=== PATIENT | female | born 1950 | race Caucasian/White ===

== ENCOUNTER 2017-08-16 07:08 | Inpatient (IN) | payer MEDICARE ==
[2017-08-16] MEDS ORDERED: Bisacodyl SUPP* 10 MG SUPP PR PRN (13:49)
[2017-08-16] MEDS ORDERED: Acetaminophen TAB* 325 MG PO PRN (13:49)
[2017-08-16] MEDS ORDERED: Magnesium Hydroxide LIQ* 30 ML UDC PO PRN (13:49)
[2017-08-16] MEDS ORDERED: Senna TAB PO PRN (13:49)
[2017-08-16] MEDS ORDERED: Prochlorperazine TAB* 10 MG PO PRN (14:25)
[2017-08-16] MEDS: fentaNYL PATCH 50 MCG/HR TRANSDERM SCH (14:36)
[2017-08-16] MEDS: Magic Mouth Was-BEN/MAAL/LIDO SWISH SPIT SCH ×2 (16:15→20:24)
[2017-08-16] MEDS: HYDROcodone/ACETAMIN 5-325 MG* 1 TAB PO PRN ×2 (16:24→20:27)
[2017-08-16] MEDS: ALPRAZolam TAB* 0.25 MG PO PRN (16:24)
[2017-08-16] MEDS: fentaNYL Patch Check Q Shift 1 NOTE SCH (19:35)
[2017-08-16] MEDS: Atorvastatin* 40 MG TAB PO SCH (20:23)
[2017-08-16] MEDS: Docusate CAP* 100 MG PO SCH (20:23)
[2017-08-16] MEDS: Senna TAB PO SCH (20:24)
[2017-08-16] MEDS ORDERED: Cholecalciferol TAB* 1000 UNITS PO ONE (21:14)
--- NOTE | 2017-08-16 21:31 | HP ---
HISTORY AND PHYSICAL: DATE OF ADMISSION: 08/16/17 REASON FOR ADMISSION: Right humerus fracture with bilateral lower extremity weakness, left greater than right. HISTORY OF PRESENT ILLNESS: Wendy Varela is a 67-year-old female. She has metastatic lung cancer, which was originally diagnosed in 2014. She had metastases in her lumbar spine and underwent radiation for that. The patient had been developing lower extremity weakness worse in the left leg than the right. She had come back to [place] where her oncology team was to have imaging studies done of her lower extremities and her spine. On 08/11/17, the patient was in bathroom when her left leg gave out. She held on to the sink with her left hand but fell on to her right hand. She had immediate pain in her right arm. She called her sister. She was brought to [facility]. She was found to have a fracture of the right humerus. She was put into a coaptation splint. She was discharged home with her sister that day. Her sister felt that she could care for her, but then her sister was unable to get her off the couch. The patient came back to the ER on 08/12/17 with significant pain of her right arm. She was seen by Dr. Woo . She was put into a Arango brace. The patient had difficulty mobilizing because she was not able to use a walker with her right hand as she is nonweightbearing on that right arm. She has lower extremity weakness as a result of radiation to her lumbar spine. She was felt to have physical therapy and occupational therapy needs. She is now being admitted for inpatient rehab so that she might return to independent living. PAST MEDICAL HISTORY: Significant for the aforementioned stage IV lung cancer. As mentioned, Dr. Vo is her oncologist. She is receiving chemotherapy for this. She had left wrist surgery in 2010. She has hypothyroidism, hyperlipidemia, and depression. CURRENT MEDICATIONS: Include: 1. Fentanyl patch. 2. She is also on hydrocodone. 3. She takes Prozac. 4. Wellbutrin. 5. Lipitor. 6. Xanax. 7. Synthroid. 8. Compazine. 9. Zofran. ALLERGIES: Include PENICILLIN and OXACILLIN. SOCIAL HISTORY: She is a nonsmoker, nondrinker. She lives with her in a 2- story house. Normally, they spend half the time in [place] and half the time in the [facility]. Her just had a right carotid endarterectomy done. REVIEW OF SYSTEMS: The patient reports her last bowel movement this morning. There is no current shortness of breath or chest pain. PHYSICAL EXAMINATION VITAL SIGNS: The patient's temperature is 99.3, blood pressure is 119/70, pulse is 99, respirations 16. HEENT: She has alopecia as a result of her therapy. Her extraocular movements were intact. NECK: Supple. LUNGS: Sounded clear to auscultation bilaterally. HEART: Sounds are regular. S1 and S2 are audible. ABDOMEN: Soft and nontender. EXTREMITIES: Her right arm is in a Arango brace. Peripheral pulses are intact. She is able to wiggle all fingers. She had trace edema in her lower extremities. NEUROLOGIC: She had diminished sensation peripherally. She was able to move her left upper extremity with 5/5 strength. Her lower extremities had at least 4+/5 strength bilaterally. ASSESSMENT: Right humerus fracture in a patient with stage IV lung cancer with no metastasis to her lumbar spine. She has undergone radiation to her lumbar spine and now has mild lower extremity weakness. PLAN: Our plan is to integrate her into a comprehensive and therapeutic rehab program on the following goals: 1. Physical Therapy will work with the patient. They are going to work on functional transfer training, ambulation training with a walker. 2. Occupational Therapy will see the patient, work on her activities of daily living including toileting and toilet transfers. 3. Lovenox for DVT prophylaxis. 4. Adequate analgesia. 5. We are going to continue her Wellbutrin and Prozac for depression as well as her Xanax for anxiety. 6. She has had mouth sores from her most recent chemo. We will start Magic Mouthwash. 7. Continue Synthroid for hypothyroidism. 8. Compazine and Zofran for nausea. 9. Her bowels will be regulated. 10. Electric Distribution Engineer will be closely involved to make sure that any services and equipment the patient requires are in place prior to the discharge. 11. Home with appropriate services. ESTIMATED LENGTH OF STAY: 10 to 14 days. [id number]/[facility] #: [id number] [facility]
[2017-08-17] MEDS: fentaNYL Patch Check Q Shift 1 NOTE SCH ×2 (05:29→19:44)
[2017-08-17 05:31] LABS: Hematocrit 31 % (35-47); Hemoglobin 10.7 g/dl (12.0-16.0); Mean Corpuscular HGB Conc 34 g/dl (31-36); Mean Corpuscular Hemoglobin 30 pg (27-31); Mean Corpuscular Volume 87 fL (80-97); Mean Platelet Volume 7.4 um3 (7.4-10.4); Platelet Count 259 10^3/ul (150-450); Red Blood Count 3.61 10^6/ul (4.0-5.4); Red Cell Distribution Width 19 % (10.5-15); White Blood Count 1.1 10^3/ul (3.5-10.8)
[2017-08-17] MEDS: Levothyroxine TAB* 75 MCG TAB PO SCH (05:34)
[2017-08-17] MEDS: Cetirizine* 10 MG TAB PO SCH (08:25)
[2017-08-17] MEDS: FLUoxetine CAP* 20 MG PO SCH (08:25)
[2017-08-17] MEDS: BuPROPion XL* 150 MG TAB.XL PO SCH (08:25)
[2017-08-17] MEDS: Docusate CAP* 100 MG PO SCH ×2 (08:26→20:57)
[2017-08-17] MEDS: Enoxaparin(*) 40 MG/0.4 ML SYR SUBCUT SCH (08:27)
[2017-08-17] MEDS: ALPRAZolam TAB* 0.25 MG PO PRN ×2 (08:48→20:56)
[2017-08-17] MEDS: HYDROcodone/ACETAMIN 5-325 MG* 1 TAB PO PRN ×3 (08:48→20:56)
[2017-08-17] MEDS: Magic Mouth Was-BEN/MAAL/LIDO SWISH SPIT PRN ×4 (09:58→23:22)
--- NOTE | 2017-08-17 11:53 | PN ---
Progress Note Date of Service: 08/17/17 Note: TAWANNA EDMONDSON was visited. Therapy notes read and reviewed. She has some ecchymoses in the right arm which is to be expected. A bit of pain last night Current Medications: Active Medications Generic Name Dose Route Start Last Admin Trade Name Freq PRN Reason Stop Dose Admin Acetaminophen 650 mg 08/16/17 13:49 Tylenol Tab* PO Q6H PRN FEVER/PAIN Hydrocodone Bitart/Acetaminophen 2 tab 08/16/17 14:09 [place] 5-325 Tab* PO Q4H PRN PAIN - SEVERE Hydrocodone Bitart/Acetaminophen 1 tab 08/16/17 14:25 08/17/17 08:48 [place] 5-325 Tab* PO 1 tab Q4H PRN Administration PAIN - MODERATE TO SEVERE Alprazolam 0.25 mg 08/16/17 14:09 08/17/17 08:48 Xanax Tab* PO 0.25 mg Q8H PRN Administration ANXIETY Atorvastatin Calcium 40 mg 08/16/17 21:00 08/16/17 20:23 Lipitor* PO 40 mg 2100 BEULAH Administration Bisacodyl 10 mg 08/16/17 13:49 Dulcolax Supp* [place] DAILY PRN CONSTIPATION Bupropion HCl 150 mg 08/17/17 09:00 08/17/17 08:25 Wellbutrin Xl * PO 150 mg DAILY BEULAH Administration Protocol Cetirizine HCl 10 mg 08/17/17 09:00 08/17/17 08:25 Zyrtec* PO 10 mg DAILY BEULAH Administration Cholecalciferol 4,000 units 08/17/17 21:00 Vitamin D Tab* PO 2100 BEULAH Docusate Sodium 100 mg 08/16/17 21:00 08/17/17 08:26 Colace Cap* PO Not Given BID BEULAH Enoxaparin Sodium 40 mg 08/17/17 09:00 08/17/17 08:27 Lovenox(*) SUBCUT 40 mg Q24H BEULAH Administration Fentanyl 50 mcg 08/16/17 14:00 08/16/17 14:36 Duragesic Patch 50 Mcg/Hr* TRANSDERM 50 mcg Q72H BEULAH Administration Fluoxetine HCl 40 mg 08/17/17 09:00 08/17/17 08:25 Prozac Cap* PO 40 mg DAILY BEULAH Administration Levothyroxine Sodium 100 mcg 08/19/17 06:00 Synthroid Tab* PO MoWeFr@0600 [facility] Levothyroxine Sodium 75 mcg 08/17/17 06:00 08/17/17 05:34 Synthroid Tab* PO 75 mcg SuTuThSa@0600 [facility] Administration Magnesium Hydroxide 30 ml 08/16/17 13:49 Milk Of Magnesia Liq* PO Q6H PRN CONSTIPATION Multi-Ingredient Mouthwash/Gargle 5 ml 08/16/17 20:47 08/17/17 09:58 Magic Mouth Was-Amadou/Maal/Lido* SWISH SPIT 5 ml Q4H PRN Administration Mouth Soreness Ondansetron HCl 4 mg 08/16/17 14:05 Zofran Odt Tab* PO Q6H PRN NAUSEA Pharmacy Profile Note 1 note 08/16/17 19:00 08/17/17 05:29 Fentanyl Patch Check Q Shift N/A 1 note 0700,1900 [facility] Administration Prochlorperazine 10 mg 08/16/17 14:25 Compazine Tab* PO Q8HR PRN NAUSEA Senna 2 tab 08/16/17 21:00 08/16/17 20:24 Senokot Tab* PO Not Given BEDTIME [facility] Vital Signs: Vital Signs Temp Pulse Resp BP Pulse Ox 98.9 F 73 18 102/58 91 08/17/17 05:32 08/17/17 05:32 08/17/17 08:48 08/17/17 05:48 08/17/17 08:00 Lab Results: Laboratory Results - last 24 hr 08/17/17 05:18 WBC 1.1 L RBC 3.61 L Hgb 10.7 L Hct 31 L MCV 87 MCH 30 MCHC 34 RDW 19 H Plt Count 259 MPV 7.4 Exam: LUNGS: Clear HEART: S1, S2 ABDOMEN: Soft EXTREMITIES: Right arm in splint. Eccymotic areas on arm. Pulses intact Assessment/Plan: 1. Right Humerus Fracture: Brace AAT. NWB RUE. PT/OT 2. 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 PT/OT 3. Stage IV Lung Cancer: Onc Follow up regarding chemo 4. Anxiety: Xanax 5. Depression: Wellbutrin/Prozac 6. Analgesia: Duragesic/[place] 7. DVT Prophylaxis: Lovenox 8. Mucositis: Magic Mouthwash 9. Hypothroidism: Synthroid 08/17/17 11:55
[2017-08-17] MEDS ORDERED: Levothyroxine TAB* 75 MCG TAB PO SCH (14:02)
[2017-08-17] MEDS: Atorvastatin* 40 MG TAB PO SCH (20:56)
[2017-08-17] MEDS: Cholecalciferol TAB* 1000 UNITS PO SCH (20:56)
[2017-08-17] MEDS: Senna TAB PO SCH (20:57)
[2017-08-18] MEDS: Levothyroxine TAB* 75 MCG TAB PO SCH (05:25)
[2017-08-18] MEDS: fentaNYL Patch Check Q Shift 1 NOTE SCH ×3 (07:28→23:00)
[2017-08-18] MEDS: FLUoxetine CAP* 20 MG PO SCH (09:10)
[2017-08-18] MEDS: Cetirizine* 10 MG TAB PO SCH (09:10)
[2017-08-18] MEDS: BuPROPion XL* 150 MG TAB.XL PO SCH (09:10)
[2017-08-18] MEDS: Docusate CAP* 100 MG PO SCH ×2 (09:10→20:51)
[2017-08-18] MEDS: ALPRAZolam TAB* 0.25 MG PO PRN ×2 (09:12→20:52)
[2017-08-18] MEDS: HYDROcodone/ACETAMIN 5-325 MG* 1 TAB PO PRN ×3 (09:13→20:52)
[2017-08-18] MEDS: Enoxaparin(*) 40 MG/0.4 ML SYR SUBCUT SCH (09:13)
[2017-08-18] MEDS: Magic Mouth Was-BEN/MAAL/LIDO SWISH SPIT PRN ×2 (12:00→21:01)
--- NOTE | 2017-08-18 12:39 | PN ---
Progress Note Date of Service: 08/18/17 Note: TAWANNA EDMONDSON was visited. Nursing notes read and reviewed. Some swelling in hand likely from blood traveling down arm, dependency. May try Isotoner glove Current Medications: Active Medications Generic Name Dose Route Start Last Admin Trade Name Freq PRN Reason Stop Dose Admin Acetaminophen 650 mg 08/16/17 13:49 Tylenol Tab* PO Q6H PRN FEVER/PAIN Hydrocodone Bitart/Acetaminophen 2 tab 08/16/17 14:09 [place] 5-325 Tab* PO Q4H PRN PAIN - SEVERE Hydrocodone Bitart/Acetaminophen 1 tab 08/16/17 14:25 08/18/17 09:13 [place] 5-325 Tab* PO 1 tab Q4H PRN Administration PAIN - MODERATE TO SEVERE Alprazolam 0.25 mg 08/16/17 14:09 08/18/17 09:12 Xanax Tab* PO 0.25 mg Q8H PRN Administration ANXIETY Atorvastatin Calcium 40 mg 08/16/17 21:00 08/17/17 20:56 Lipitor* PO 40 mg 2100 BEULAH Administration Bisacodyl 10 mg 08/16/17 13:49 Dulcolax Supp* [place] DAILY PRN CONSTIPATION Bupropion HCl 150 mg 08/17/17 09:00 08/18/17 09:10 Wellbutrin Xl * PO 150 mg DAILY BEULAH Administration Protocol Cetirizine HCl 10 mg 08/17/17 09:00 08/18/17 09:10 Zyrtec* PO 10 mg DAILY BEULAH Administration Cholecalciferol 4,000 units 08/17/17 21:00 08/17/17 20:56 Vitamin D Tab* PO 4,000 units 2100 BEULAH Administration Docusate Sodium 100 mg 08/16/17 21:00 08/18/17 09:10 Colace Cap* PO 100 mg BID BEULAH Administration Enoxaparin Sodium 40 mg 08/17/17 09:00 08/18/17 09:13 Lovenox(*) SUBCUT 40 mg Q24H BEULAH Administration Fentanyl 50 mcg 08/16/17 14:00 08/16/17 14:36 Duragesic Patch 50 Mcg/Hr* TRANSDERM 50 mcg Q72H BEULAH Administration Fluoxetine HCl 40 mg 08/17/17 09:00 08/18/17 09:10 Prozac Cap* PO 40 mg DAILY BEULAH Administration Levothyroxine Sodium 100 mcg 08/19/17 06:00 Synthroid Tab* PO MoWeFr@0600 BEULAH Levothyroxine Sodium 75 mcg 08/17/17 06:00 08/18/17 05:25 Synthroid Tab* PO 75 mcg SuTuThSa@0600 [facility] Administration Magnesium Hydroxide 30 ml 08/16/17 13:49 Milk Of Magnesia Liq* PO Q6H PRN CONSTIPATION Multi-Ingredient Mouthwash/Gargle 5 ml 08/16/17 20:47 08/18/17 12:00 Magic Mouth Was-Amadou/Maal/Lido* SWISH SPIT 5 ml Q4H PRN Administration Mouth Soreness Ondansetron HCl 4 mg 08/16/17 14:05 Zofran Odt Tab* PO Q6H PRN NAUSEA Pharmacy Profile Note 1 note 08/16/17 19:00 08/18/17 07:28 Fentanyl Patch Check Q Shift N/A 1 note 0700,1900 [facility] Administration Prochlorperazine 10 mg 08/16/17 14:25 Compazine Tab* PO Q8HR PRN NAUSEA Senna 2 tab 08/16/17 21:00 08/17/17 20:57 Senokot Tab* PO Not Given BEDTIME [facility] Vital Signs: Vital Signs Temp Pulse Resp BP Pulse Ox 98.9 F 87 18 97/42 93 08/18/17 05:24 08/18/17 05:24 08/18/17 12:33 08/18/17 05:24 08/18/17 08:00 Exam: LUNGS: Clear HEART: S1, S2 ABDOMEN: Soft EXTREMITIES: Right arm in splint. Eccymotic areas on arm. Right hand swollen. Pulses intact Assessment/Plan: 1. Right Humerus Fracture: Brace AAT. NWB RUE. PT/OT 2. 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 PT/OT 3. Stage IV Lung Cancer: Onc Follow up regarding chemo 4. Anxiety: Xanax 5. Depression: Wellbutrin/Prozac 6. Analgesia: Duragesic/[place] 7. DVT Prophylaxis: Lovenox 8. Mucositis: Magic Mouthwash 9. Hypothroidism: Synthroid 10. Hand swelling: will discuss with OT-Glove? 08/18/17 12:40
[2017-08-18] MEDS: Cholecalciferol TAB* 1000 UNITS PO SCH (20:50)
[2017-08-18] MEDS: Atorvastatin* 40 MG TAB PO SCH (20:52)
[2017-08-18] MEDS: Senna TAB PO SCH (20:52)
[2017-08-19] MEDS: Levothyroxine TAB* 100 MCG TAB PO SCH (05:47)
[2017-08-19] MEDS: HYDROcodone/ACETAMIN 5-325 MG* 1 TAB PO PRN ×4 (05:51→20:31)
[2017-08-19 06:33] LABS: Hematocrit 31 % (35-47); Hemoglobin 10.2 g/dl (12.0-16.0); Mean Corpuscular HGB Conc 33 g/dl (31-36); Mean Corpuscular Hemoglobin 29 pg (27-31); Mean Corpuscular Volume 86 fL (80-97); Mean Platelet Volume 6.9 um3 (7.4-10.4); Platelet Count 269 10^3/ul (150-450); Red Blood Count 3.57 10^6/ul (4.0-5.4); Red Cell Distribution Width 19 % (10.5-15)
[2017-08-19 06:37] LABS: ABS Basophils 0 10^3/ul (0-0.2); ABS Eosinophils 0 10^3/ul (0-0.6); ABS Lymphocytes 0.4 10^3/ul (1.0-4.8); ABS Monocytes 0.7 10^3/ul (0-0.8); ABS Neutrophils 0.8 10^3/ul (1.5-7.7)
[2017-08-19 06:54] LABS: EGFR Non-African American 83.7 (>60)
[2017-08-19 06:58] LABS: ABS Nucleated RBC 0 10^3/ul; Eosinophil % 1.2 % (0-6); Lymphocyte % 22.1 % (25-47); Nucleated Red Blood Cells % 0.3
[2017-08-19] MEDS: fentaNYL Patch Check Q Shift 1 NOTE SCH ×2 (07:10→21:40)
[2017-08-19] MEDS: BuPROPion XL* 150 MG TAB.XL PO SCH (08:20)
[2017-08-19] MEDS: Docusate CAP* 100 MG PO SCH ×2 (08:20→20:32)
[2017-08-19] MEDS: FLUoxetine CAP* 20 MG PO SCH (08:20)
[2017-08-19] MEDS: Enoxaparin(*) 40 MG/0.4 ML SYR SUBCUT SCH (08:20)
[2017-08-19] MEDS: Cetirizine* 10 MG TAB PO SCH (08:21)
[2017-08-19] MEDS: ALPRAZolam TAB* 0.25 MG PO PRN (08:21)
--- NOTE | 2017-08-19 12:40 | PMRUTEAM ---
PMRU: Team Meeting Current Status: Nursing: Current Status Skin Deviations [Right Arm] Bruise Skin Deviations [Left Elbow] Bruise Skin Deviation Description [ in ayala brace at all times Right Arm] Skin Deviation Description [ abrasion healing and open to air Left Elbow] Physical Therapy: Current Status Bed Mobility Assistance Supervision Transfer Moblility Assistance Contact Guard Assist Transfer/Bed Mobility Vivek Walker Recommended Devices Ambulation Assistance Contact Guard Assist Ambulation Assistive Devices Vivek Walker Number of Feet Patient 7' and 10' Ambulated Manual Wheelchair Control/ Bilateral LE's Technique Wheelchair Propulsion Ability Standby Assistance Wheelchair Distance (ft) 40' Objective Comments patient demosntrates good overall abiltiy in completion of mobiltiy with W/C using BLE. patient needs cuing for procedure and occasional assist, and assist with problemsolving mobitliy. Occupational Therapy: Current Status Upper Body Dressing Max Asst Lower Body Dressing Total Assist,2 Person Assist Bathing Total Assist Toileting Total Assist,2 Person Assist Toilet Transfer Min Assist Eating Supervision Rec Therapy: Current Status Summary of Assessment and Pt. was open to conversion - very bright, engaged , Clinical Impression and had a good sense of humor and outlook on life . Pt. states she enjoys her life and engages in leisure regularly. Treatment Goals Pt. will engage in leisure activities while on the unit. Treatment Plan Provide RT services and encourage involvement. Social Work: Current Status Discharge Plan return home with home care svs and family support Potential for Family Training pt's' is involved and supportive Anticipated Discharge Home Destination Discharge With home care svs and family support Goals: Physical Therapy: Initial Goals Bed Mobility Assistance Independent Transfer Mobility Assistance Independent Transfer/Bed Mobility Vivek Walker Recommended Devices Ambulation Contact Guard Assist Ambulation Recommended Devices Vivek Walker Ambulation Distance 50 Wheelchair Propulsion Ability Independent Wheelchair Distance (ft) 150 Physical Therapy: Updated Goals Transfer/Bed Mobility Vivek Walker Recommended Devices Occupational Therapy: Initial Goals Goals to be Completed in (Days 10-14 ) Upper Body Bathing Routine Minimal Contact Assist Lower Body Bathing Routine Supervision/Set Up Upper Body Dressing Routine Minimal Contact Assist Lower Body Dressing Routine Supervision/Set Up Toilet Hygeine and Clothing Modified Independent with Management Routine Toilet Transfer Routine Modified Independent with Step-In Shower Transfer Supervision/Set Up Routine Functional Transfers for ADL Modified Independent with Grooming Routine Modified Independent with Feeding Routine Modified Independent with Social Work: Goals Discharge Plan return home with home care svs and family support Potential for Family Training pt's' is involved and supportive Anticipated Discharge Home Destination Discharge With home care svs and family support Care Plan: Care Plan ADL's - Improve/Maintain Start: 08/17/17 12:39 Freq: DAILY Status: Active Target: Protocol: Activity Type Activity Date Activity User E-Sign Co-Sign Detail Recorded Client Recorded Date Recorded By Document 08/17/17 12:39 [id number] 08/17/17 12:39 [id number] 08/17/17 12:39 PMRU Outcome: ADL's/ADL Transfers Orders/Interventions Occupational Therapy Evaluation & Treatment Communication Tool in Patient Room Device Yes Address Deficits Secondary To: R humerus fx Patient to receive OT 5x/wk for 60-120 Therex min/day Self Care Management Group Therapy UE/LE ADL's with Assist Yes: Malorie ADL Transfers with Assist Yes: Breanna Toileting: Transfers,Clothing Management Yes: Breanna ,Hygeine w/Assist Light Kitchen/Laundry w/Assist No Progression Toward Outcome/Goals Progressing Outcome/Goals Met Pt is a 67 year old female with h/o lung CA with brain/ spine mets s/p fall with distal Right humerus fx and currently NWB RUE with Ayala brace and sling in place. Pt reports increase in pain at times with movement to reposition in chair/stand. Pt currently requires significant assistance 2* WB precautions, splint/sling, as well as limited 2* pain , nausea, and occasional c/o dizziness and anxiety which limit independence with bathing, dressing, toileting, and transfers. Pt will benefit from skilled OT intervention to maximize independence and safety prior to d/c home with support . Coping/Psych-Improve/Maintain Start: 08/16/17 14:21 Freq: DAILY Status: Active Target: Protocol: Activity Type Activity Date Activity User E-Sign Co-Sign Detail Recorded Client Recorded Date Recorded By Document 08/19/17 01:36 [id number] 08/19/17 01:37 [id number] 08/19/17 01:36 PMRU Outcome: Coping/Psychosocial Coping Outcome/Goals Verbalization of Acceptance of Rehab Admit Verbalization of Sense of Control Over Health Status Utilization of Appropriate Problem Solving Techniques Willingness to Participate in Treatment Plan and Basic Needs Utilization of Available Support Systems Absence of Destructive Behavior to Self/Others Psychosocial Outcome/Goals Cooperate/ Participate in Plan Progression Toward Outcome/Goals - Progressing Coping Progression Toward Outcome/Goals - Progressing Psychosocial DVT Prophylaxis- Improve/Maintain Start: 08/16/17 14:21 Freq: DAILY Status: Active Target: Protocol: Activity Type Activity Date Activity User E-Sign Co-Sign Detail Recorded Client Recorded Date Recorded By Document 08/19/17 01:36 [id number] 08/19/17 01:37 [id number] 08/19/17 01:36 PMRU Outcome: DVT Prophylaxis Outcome/Goals Remains Free of DVT Complies with DVT Prophylaxis /Treatment Progression Toward Outcome/Goals Progressing Discharge Planning - Improve/Maintain Start: 08/16/17 14:21 Freq: DAILY Status: Active Target: Protocol: Activity Type Activity Date Activity User E-Sign Co-Sign Detail Recorded Client Recorded Date Recorded By Document 08/18/17 01:23 [id number] 08/18/17 01:24 [id number] 08/18/17 01:23 PMRU Outcome: Discharge Planning Update Patient Family No Outcome/Goals Demonstrates Understanding of Discharge Plan Progression Toward Outcome/Goals Progressing Education-Improve/Maintain Start: 08/16/17 14:21 Freq: DAILY Status: Active Target: Protocol: Activity Type Activity Date Activity User E-Sign Co-Sign Detail Recorded Client Recorded Date Recorded By Document 08/19/17 01:36 [id number] 08/19/17 01:37 [id number] 08/19/17 01:36 PMRU Outcome: Education Outcome/Goals Demonstrates Skills Encourage Questions Progression Toward Outcome/Goals Progressing /GI-Improve/Maintain Start: 08/16/17 14:21 Freq: DAILY Status: Active Target: Protocol: Activity Type Activity Date Activity User E-Sign Co-Sign Detail Recorded Client Recorded Date Recorded By Document 08/19/17 01:36 [id number] 08/19/17 01:37 [id number] 08/19/17 01:36 PMRU Outcome: Genitourinary/ Gastrointestinal Genitourinary- Outcome/Goals Remain Free of Hospital- Acquired UTI Gastrointestinal-Outcome/Goals Maintain/ Achieve Bowel Regularity in Accordance with Pt's Baseline Remain Free of Emesis Prevent Constipation Laxatives as Ordered Progression Toward Outcome/Goals - Progressing Progression Toward Outcome/Goals - GI Progressing Medication Administration Start: 08/16/17 14:21 Freq: DAILY Status: Active Target: Protocol: Activity Type Activity Date Activity User E-Sign Co-Sign Detail Recorded Client Recorded Date Recorded By Document 08/19/17 01:36 [id number] 08/19/17 01:37 [id number] 08/19/17 01:36 PMRU Outcome: Medication Administration Assess Patient Knowledge/Teach Med Yes Education for all Meds Outcome/Goals Patient Independent with Medication Administration at Home Other Outcome/Goals uses pill box at home Progression Towards Outcome/Goals Progressing Outcome/Goals Met Patient Independent with Medication Administration at Home Is Patient Going Home on Lovenox? No Mobility- Improve/Maintain Start: 08/17/17 16:50 Freq: DAILY Status: Active Target: Protocol: Activity Type Activity Date Activity User E-Sign Co-Sign Detail Recorded Client Recorded Date Recorded By Document 08/17/17 16:52 [id number] 08/17/17 16:52 [id number] 08/17/17 16:52 PMRU Outcome: Mobility Physical Therapy Evaluation and Yes Treatment Activity OOB with Assistance Yes NWB Yes: RUE - arm in sling aat Device Yes Assistance Yes Patient to be seen 5x/wk for 60-120 min/ Therex day for: Mobility Training Gait Training W/C Mobility Balance Other Outcome/Goals Maintain/ Achieve Baseline Mobility Status Improve Mobility Status Demonstrates Proper Use of Assistive Devices Free from Complications of Immobility Progression Toward Outcome/Goals Progressing Bed Mobility Yes: independent Transfers Yes: independent with vivek- walker/rail Gait x ft Yes: independent with vivek- walker 50' W/C Mobility x ft Yes: independent with BLE to 150 + feet Pain/Comfort- Improve/Maintain Start: 08/16/17 14:21 Freq: DAILY Status: Active Target: Protocol: Activity Type Activity Date Activity User E-Sign Co-Sign Detail Recorded Client Recorded Date Recorded By Document 08/19/17 01:36 [id number] 08/19/17 01:37 [id number] 08/19/17 01:36 PMRU Outcome: Pain/Comfort Outcome/Goals Demonstrates Knowledge and Use of Available Comfort Measures Achieves Acceptable Comfort/Pain Level as Determined by Patient/Condit Maintain Comfort Level Allowing Patient to Fully Participate in Rehab Progression Toward Outcome/Goals Progressing Safety- Improve/Maintain Start: 08/16/17 14:21 Freq: DAILY Status: Active Target: Protocol: Activity Type Activity Date Activity User E-Sign Co-Sign Detail Recorded Client Recorded Date Recorded By Document 08/19/17 01:36 [id number] 08/19/17 01:37 [id number] 08/19/17 01:36 PMRU Outcome: Safety Outcome/Goals Remain Free of Injury or Harm Prevent Falls/ Injury Progression Toward Outcome/Goals Progressing Medicine Note: Length of Stay: 2 weeks Anticipated Discharge Destination: Home Tentative Discharge Date: 09/03/17 Discharged to: Home
[2017-08-19] MEDS: fentaNYL PATCH 50 MCG/HR TRANSDERM SCH (14:49)
[2017-08-19] MEDS: Magic Mouth Was-BEN/MAAL/LIDO SWISH SPIT PRN (15:36)
--- NOTE | 2017-08-19 16:22 | PN ---
Progress Note Date of Service: 08/19/17 Note: TAWANNA EDMONDSON was visited. Therapy notes read and reviewed. She was discussed in interdisciplinary plan of care rounds. For her swelling in her hand, will try an Isotoner glove. Her pain is well controlled. Current Medications: Active Medications Generic Name Dose Route Start Last Admin Trade Name Freq PRN Reason Stop Dose Admin Acetaminophen 650 mg 08/16/17 13:49 Tylenol Tab* PO Q6H PRN FEVER/PAIN Hydrocodone Bitart/Acetaminophen 2 tab 08/16/17 14:09 [place] 5-325 Tab* PO Q4H PRN PAIN - SEVERE Hydrocodone Bitart/Acetaminophen 1 tab 08/16/17 14:25 08/19/17 15:37 [place] 5-325 Tab* PO 1 tab Q4H PRN Administration PAIN - MODERATE TO SEVERE Alprazolam 0.25 mg 08/16/17 14:09 08/19/17 08:21 Xanax Tab* PO 0.25 mg Q8H PRN Administration ANXIETY Atorvastatin Calcium 40 mg 08/16/17 21:00 08/18/17 20:52 Lipitor* PO 40 mg 2100 BEULAH Administration Bisacodyl 10 mg 08/16/17 13:49 Dulcolax Supp* [place] DAILY PRN CONSTIPATION Bupropion HCl 150 mg 08/17/17 09:00 08/19/17 08:20 Wellbutrin Xl * PO 150 mg DAILY BEULAH Administration Protocol Cetirizine HCl 10 mg 08/17/17 09:00 08/19/17 08:21 Zyrtec* PO 10 mg DAILY BEULAH Administration Cholecalciferol 4,000 units 08/17/17 21:00 08/18/17 20:50 Vitamin D Tab* PO 4,000 units 2100 BEULAH Administration Docusate Sodium 100 mg 08/16/17 21:00 08/19/17 08:20 Colace Cap* PO 100 mg BID BEULAH Administration Enoxaparin Sodium 40 mg 08/17/17 09:00 08/19/17 08:20 Lovenox(*) SUBCUT 40 mg Q24H BEULAH Administration Fentanyl 50 mcg 08/16/17 14:00 08/19/17 14:49 Duragesic Patch 50 Mcg/Hr* TRANSDERM 50 mcg Q72H BEULAH Administration Fluoxetine HCl 40 mg 08/17/17 09:00 08/19/17 08:20 Prozac Cap* PO 40 mg DAILY BEULAH Administration Levothyroxine Sodium 100 mcg 08/19/17 06:00 08/19/17 05:47 Synthroid Tab* PO 100 mcg MoWeFr@0600 BEULAH Administration Levothyroxine Sodium 75 mcg 08/17/17 06:00 08/18/17 05:25 Synthroid Tab* PO 75 mcg SuTuThSa@0600 BEULAH Administration Magnesium Hydroxide 30 ml 08/16/17 13:49 Milk Of Magnesia Liq* PO Q6H PRN CONSTIPATION Multi-Ingredient Mouthwash/Gargle 5 ml 08/16/17 20:47 08/19/17 15:36 Magic Mouth Was-Amadou/Maal/Lido* SWISH SPIT 5 ml Q4H PRN Administration Mouth Soreness Ondansetron HCl 4 mg 08/16/17 14:05 Zofran Odt Tab* PO Q6H PRN NAUSEA Pharmacy Profile Note 1 note 08/16/17 19:00 08/19/17 07:10 Fentanyl Patch Check Q Shift N/A 1 note 0700,1900 [facility] Administration Prochlorperazine 10 mg 08/16/17 14:25 Compazine Tab* PO Q8HR PRN NAUSEA Senna 2 tab 08/16/17 21:00 08/18/17 20:52 Senokot Tab* PO Not Given BEDTIME [facility] Vital Signs: Vital Signs Temp Pulse Resp BP Pulse Ox 98.3 F 97 18 121/62 93 08/18/17 16:00 08/19/17 05:46 08/19/17 15:37 08/19/17 05:46 08/19/17 05:46 Lab Results: Laboratory Results - last 24 hr 08/19/17 08/19/17 06:21 06:21 WBC 2.0 L RBC 3.57 L Hgb 10.2 L Hct 31 L MCV 86 MCH 29 MCHC 33 RDW 19 H Plt Count 269 MPV 6.9 L Neut % (Auto) 41.0 Lymph % (Auto) 22.1 L [place] % (Auto) 34.3 H Eos % (Auto) 1.2 Baso % (Auto) 1.4 Absolute Neuts (auto) 0.8 L* Absolute Lymphs (auto) 0.4 L Absolute Monos (auto) 0.7 Absolute Eos (auto) 0 Absolute Basos (auto) 0 Absolute Nucleated RBC 0 Nucleated RBC % 0.3 Sodium 137 L Potassium 3.8 Chloride 102 Carbon Dioxide 29 Anion Gap 6 BUN 10 Creatinine 0.70 Est GFR ( Amer) 107.7 Est GFR (Non-Af Amer) 83.7 BUN/Creatinine Ratio 14.3 Glucose 87 Calcium 8.6 Total Bilirubin 0.40 AST 14 ALT 11 Alkaline Phosphatase 51 Total Protein 5.1 L Albumin 2.8 L Globulin 2.3 Albumin/Globulin Ratio 1.2 Exam: LUNGS: Clear HEART: S1, S2 ABDOMEN: Soft EXTREMITIES: Right arm in splint. Ecchymotic areas on arm. Right hand swollen. Pulses intact Assessment/Plan: 1. Right Humerus Fracture: Brace AAT. NWB RUE. PT/OT 2. 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 PT/OT 3. Stage IV Lung Cancer: Onc Follow up regarding chemo 4. Anxiety: Xanax 5. Depression: Wellbutrin/Prozac 6. Analgesia: Duragesic/[place] 7. DVT Prophylaxis: Lovenox 8. Mucositis: Magic Mouthwash 9. Hypothroidism: Synthroid 10. Hand swelling: discussed with OT-will try Glove 08/19/17 16:22
[2017-08-19] MEDS: Atorvastatin* 40 MG TAB PO SCH (20:32)
[2017-08-19] MEDS: Cholecalciferol TAB* 1000 UNITS PO SCH (20:32)
[2017-08-19] MEDS: Senna TAB PO SCH (20:32)
[2017-08-20] MEDS: Levothyroxine TAB* 75 MCG TAB PO SCH (05:44)
[2017-08-20] MEDS: fentaNYL Patch Check Q Shift 1 NOTE SCH ×2 (07:07→19:00)
[2017-08-20] MEDS: ALPRAZolam TAB* 0.25 MG PO PRN (08:22)
[2017-08-20] MEDS: HYDROcodone/ACETAMIN 5-325 MG* 1 TAB PO PRN ×4 (08:23→21:23)
[2017-08-20] MEDS: Ondansetron ODT TAB* 4 MG PO PRN (08:23)
[2017-08-20] MEDS: BuPROPion XL* 150 MG TAB.XL PO SCH (09:16)
[2017-08-20] MEDS: FLUoxetine CAP* 20 MG PO SCH (09:16)
[2017-08-20] MEDS: Docusate CAP* 100 MG PO SCH ×2 (09:17→21:24)
[2017-08-20] MEDS: Enoxaparin(*) 40 MG/0.4 ML SYR SUBCUT SCH (09:17)
[2017-08-20] MEDS: Cetirizine* 10 MG TAB PO SCH (09:17)
--- NOTE | 2017-08-20 12:41 | PMRUTEAM ---
PMRU: Team Meeting Current Status: Nursing: Current Status Skin Deviations [Right 3rd Abrasion Finger] Skin Deviations [Right Arm] Bruise Skin Deviations [Left Elbow] Bruise Skin Deviation Description [ cut unchanged Right 3rd Finger] Skin Deviation Description [ ayala sling Right Arm] Skin Deviation Description [ abrasion healing and open to air Left Elbow] Physical Therapy: Current Status Bed Mobility Assistance Not Tested Transfer Moblility Assistance Contact Guard Assist Transfer/Bed Mobility Rolling Walker Recommended Devices Ambulation Assistance Contact Guard Assist Ambulation Assistive Devices Vivek Walker Number of Feet Patient 12 Ambulated Ambulation Comment Pt. presents a step to type gait. Pt fatigues easily. Stairs Assistance Not Tested Manual Wheelchair Control/ Bilateral LE's Technique Wheelchair Propulsion Ability Standby Assistance Wheelchair Distance (ft) 40' Objective Comments patient demosntrates good overall abiltiy in completion of mobiltiy with W/C using BLE. patient needs cuing for procedure and occasional assist, and assist with problemsolving mobitliy. Occupational Therapy: Current Status Upper Body Dressing Mod Assist Lower Body Dressing Mod Assist Bathing Mod Assist Toileting Max Asst Toilet Transfer Contact Guard Assist Shower Transfer Contact Guard Assist Eating Independent Rec Therapy: Current Status Summary of Assessment and RT assessment complete and pt. is aware of RT Clinical Impression services. Pt. is very outgoing, social and has a positive outlook on life. Provided RT material for her and will con't to provide leisure visits. Treatment Goals Pt. will engage in leisure activities while on the unit. Treatment Plan Provide RT services and encourage involvement. Social Work: Current Status Discharge Plan return home with home care svs and family support Potential for Family Training pt's is involved and supportive Anticipated Discharge Home Destination Discharge With Lifetime Care and family support Nutrition: Current Status Monitoring new adm; nutrition assessment planned 08/26. Initial goals as outlined below. Goals: Physical Therapy: Initial Goals Bed Mobility Assistance Independent Transfer Mobility Assistance Independent Transfer/Bed Mobility Vivek Walker Recommended Devices Ambulation Contact Guard Assist Ambulation Recommended Devices Vivek Walker Ambulation Distance 50 Wheelchair Propulsion Ability Independent Wheelchair Distance (ft) 150 Physical Therapy: Updated Goals Bed Mobility Assistance Independent Transfer Mobility Assistance Independent Transfer/Bed Mobility Vivek Walker Recommended Devices Ambulation Assistance Independent Ambulation Assistive Devices Vivek Walker Ambulation Distance (ft) 50 Wheelchair Propulsion Ability Independent Wheelchair Distance (ft) 150' Occupational Therapy: Initial Goals Goals to be Completed in (Days 10-14 ) Upper Body Bathing Routine Minimal Contact Assist Lower Body Bathing Routine Supervision/Set Up Upper Body Dressing Routine Minimal Contact Assist Lower Body Dressing Routine Supervision/Set Up Toilet Hygeine and Clothing Modified Independent with Management Routine Toilet Transfer Routine Modified Independent with Step-In Shower Transfer Supervision/Set Up Routine Functional Transfers for ADL Modified Independent with Grooming Routine Modified Independent with Feeding Routine Modified Independent with Nutrition: Goals Intervention Goals 1. adequate po intake to maintain stable wt and lean body mass 2. regulated bowel pattern without c/o constipation (or diarrhea) 3. maintenance of skin integrity; no evidence of skin breakdown Social Work: Goals Discharge Plan return home with home care svs and family support Potential for Family Training pt's is involved and supportive Anticipated Discharge Home Destination Discharge With Lifetime Care and family support Care Plan: Care Plan ADL's - Improve/Maintain Start: 08/17/17 12:39 Freq: DAILY Status: Active Target: Protocol: Activity Type Activity Date Activity User E-Sign Co-Sign Detail Recorded Client Recorded Date Recorded By Document 08/17/17 12:39 [id number] 08/17/17 12:39 [id number] 08/17/17 12:39 PMRU Outcome: ADL's/ADL Transfers Orders/Interventions Occupational Therapy Evaluation & Treatment Communication Tool in Patient Room Device Yes Address Deficits Secondary To: R humerus fx Patient to receive OT 5x/wk for 60-120 Therex min/day Self Care Management Group Therapy UE/LE ADL's with Assist Yes: Malorie ADL Transfers with Assist Yes: Breanna Toileting: Transfers,Clothing Management Yes: Breanna ,Hygeine w/Assist Light Kitchen/Laundry w/Assist No Progression Toward Outcome/Goals Progressing Outcome/Goals Met Pt is a 67 year old female with h/o lung CA with brain/ spine mets s/p fall with distal Right humerus fx and currently NWB RUE with Ayala brace and sling in place. Pt reports increase in pain at times with movement to reposition in chair/stand. Pt currently requires significant assistance 2* WB precautions, splint/sling, as well as limited 2* pain , nausea, and occasional c/o dizziness and anxiety which limit independence with bathing, dressing, toileting, and transfers. Pt will benefit from skilled OT intervention to maximize independence and safety prior to d/c home with support . Coping/Psych-Improve/Maintain Start: 08/16/17 14:21 Freq: DAILY Status: Active Target: Protocol: Activity Type Activity Date Activity User E-Sign Co-Sign Detail Recorded Client Recorded Date Recorded By Document 08/20/17 10:29 [id number] 08/20/17 10:30 [id number] 08/20/17 10:29 PMRU Outcome: Coping/Psychosocial Coping Outcome/Goals Verbalization of Acceptance of Rehab Admit Verbalization of Sense of Control Over Health Status Utilization of Appropriate Problem Solving Techniques Willingness to Participate in Treatment Plan and Basic Needs Utilization of Available Support Systems Absence of Destructive Behavior to Self/Others Psychosocial Outcome/Goals Cooperate/ Participate in Plan Progression Toward Outcome/Goals - Progressing Coping Progression Toward Outcome/Goals - Progressing Psychosocial Coping Outcome/Goals Met Demonstrates Understanding of Rehab Admit and Goal Setting Process Performs Actions to Reduce Fear and Anxiety DVT Prophylaxis- Improve/Maintain Start: 08/16/17 14:21 Freq: DAILY Status: Active Target: Protocol: Activity Type Activity Date Activity User E-Sign Co-Sign Detail Recorded Client Recorded Date Recorded By Document 08/20/17 10:29 [id number] 08/20/17 10:30 [id number] 08/20/17 10:29 PMRU Outcome: DVT Prophylaxis Outcome/Goals Remains Free of DVT Complies with DVT Prophylaxis /Treatment Progression Toward Outcome/Goals Progressing Outcome/Goals Met Complies with DVT Prophylaxis /Treatment Discharge Planning - Improve/Maintain Start: 08/16/17 14:21 Freq: DAILY Status: Active Target: Protocol: Activity Type Activity Date Activity User E-Sign Co-Sign Detail Recorded Client Recorded Date Recorded By Document 08/18/17 01:23 [id number] 08/18/17 01:24 [id number] 08/18/17 01:23 PMRU Outcome: Discharge Planning Update Patient Family No Outcome/Goals Demonstrates Understanding of Discharge Plan Progression Toward Outcome/Goals Progressing Education-Improve/Maintain Start: 08/16/17 14:21 Freq: DAILY Status: Active Target: Protocol: Activity Type Activity Date Activity User E-Sign Co-Sign Detail Recorded Client Recorded Date Recorded By Document 08/20/17 10:29 [id number] 08/20/17 10:30 [id number] 08/20/17 10:29 PMRU Outcome: Education Outcome/Goals Demonstrates Skills Encourage Questions Progression Toward Outcome/Goals Progressing Outcome/Goals Met Demonstrate/ Verbalize Understanding of Written Discharge Instructions /GI-Improve/Maintain Start: 08/16/17 14:21 Freq: DAILY Status: Active Target: Protocol: Activity Type Activity Date Activity User E-Sign Co-Sign Detail Recorded Client Recorded Date Recorded By Document 08/20/17 10:29 [id number] 08/20/17 10:30 [id number] 08/20/17 10:29 PMRU Outcome: Genitourinary/ Gastrointestinal Genitourinary- Outcome/Goals Remain Free of Hospital- Acquired UTI Gastrointestinal-Outcome/Goals Maintain/ Achieve Bowel Regularity in Accordance with Pt's Baseline Remain Free of Emesis Prevent Constipation Laxatives as Ordered Progression Toward Outcome/Goals - Progressing Progression Toward Outcome/Goals - GI Progressing Genitourinary- Outcome/Goals Met Remain Free of Hospital- Acquired UTI Medication Administration Start: 08/16/17 14:21 Freq: DAILY Status: Active Target: Protocol: Activity Type Activity Date Activity User E-Sign Co-Sign Detail Recorded Client Recorded Date Recorded By Document 08/20/17 10:29 [id number] 08/20/17 10:30 [id number] 08/20/17 10:29 PMRU Outcome: Medication Administration Assess Patient Knowledge/Teach Med Yes Education for all Meds Outcome/Goals Patient Independent with Medication Administration at Home Other Outcome/Goals uses pill box at home Progression Towards Outcome/Goals Progressing Outcome/Goals Met Patient Independent with Medication Administration at Home Is Patient Going Home on Lovenox? No Mobility- Improve/Maintain Start: 08/17/17 16:50 Freq: DAILY Status: Active Target: Protocol: Activity Type Activity Date Activity User E-Sign Co-Sign Detail Recorded Client Recorded Date Recorded By Document 08/17/17 16:52 [id number] 08/17/17 16:52 [id number] 08/17/17 16:52 PMRU Outcome: Mobility Physical Therapy Evaluation and Yes Treatment Activity OOB with Assistance Yes NWB Yes: RUE - arm in sling aat Device Yes Assistance Yes Patient to be seen 5x/wk for 60-120 min/ Therex day for: Mobility Training Gait Training W/C Mobility Balance Other Outcome/Goals Maintain/ Achieve Baseline Mobility Status Improve Mobility Status Demonstrates Proper Use of Assistive Devices Free from Complications of Immobility Progression Toward Outcome/Goals Progressing Bed Mobility Yes: independent Transfers Yes: independent with vivek- walker/rail Gait x ft Yes: independent with vivek- walker 50' W/C Mobility x ft Yes: independent with BLE to 150 + feet Pain/Comfort- Improve/Maintain Start: 08/16/17 14:21 Freq: DAILY Status: Active Target: Protocol: Activity Type Activity Date Activity User E-Sign Co-Sign Detail Recorded Client Recorded Date Recorded By Document 08/20/17 10:29 [id number] 08/20/17 10:30 [id number] 08/20/17 10:29 PMRU Outcome: Pain/Comfort Outcome/Goals Demonstrates Knowledge and Use of Available Comfort Measures Achieves Acceptable Comfort/Pain Level as Determined by Patient/Condit Maintain Comfort Level Allowing Patient to Fully Participate in Rehab Progression Toward Outcome/Goals Progressing Outcome/Goals Met Demonstrates Knowledge and Use of Available Comfort Measures Safety- Improve/Maintain Start: 08/16/17 14:21 Freq: DAILY Status: Active Target: Protocol: Activity Type Activity Date Activity User E-Sign Co-Sign Detail Recorded Client Recorded Date Recorded By Document 08/20/17 10:29 [id number] 08/20/17 10:30 [id number] 08/20/17 10:29 PMRU Outcome: Safety Outcome/Goals Remain Free of Injury or Harm Prevent Falls/ Injury Progression Toward Outcome/Goals Progressing Outcome/Goals Met Remain Free of Injury or Harm Medicine Note: Length of Stay: 2 weeks Anticipated Discharge Destination: Home Tentative Discharge Date: 09/03/17 Discharged to: Home
[2017-08-20] MEDS: Magic Mouth Was-BEN/MAAL/LIDO SWISH SPIT PRN (13:21)
--- NOTE | 2017-08-20 17:47 | PN ---
Progress Note Date of Service: 08/20/17 Note: TAWANNA EDMONDSON was visited. Therapy notes read and reviewed. She was discussed in interdisciplinary team rounds. The swelling in her hand is better with the glove. She thinks she had a bad day today Current Medications: Active Medications Generic Name Dose Route Start Last Admin Trade Name Freq PRN Reason Stop Dose Admin Acetaminophen 650 mg 08/16/17 13:49 Tylenol Tab* PO Q6H PRN FEVER/PAIN Hydrocodone Bitart/Acetaminophen 2 tab 08/16/17 14:09 08/19/17 20:31 [place] 5-325 Tab* PO 2 tab Q4H PRN Administration PAIN - SEVERE Hydrocodone Bitart/Acetaminophen 1 tab 08/16/17 14:25 08/20/17 17:20 [place] 5-325 Tab* PO 1 tab Q4H PRN Administration PAIN - MODERATE TO SEVERE Alprazolam 0.25 mg 08/16/17 14:09 08/20/17 08:22 Xanax Tab* PO 0.25 mg Q8H PRN Administration ANXIETY Atorvastatin Calcium 40 mg 08/16/17 21:00 08/19/17 20:32 Lipitor* PO 40 mg 2100 BEULAH Administration Bisacodyl 10 mg 08/16/17 13:49 Dulcolax Supp* [place] DAILY PRN CONSTIPATION Bupropion HCl 150 mg 08/17/17 09:00 08/20/17 09:16 Wellbutrin Xl * PO 150 mg DAILY BEULAH Administration Protocol Cetirizine HCl 10 mg 08/17/17 09:00 08/20/17 09:17 Zyrtec* PO 10 mg DAILY BEULAH Administration Cholecalciferol 4,000 units 08/17/17 21:00 08/19/17 20:32 Vitamin D Tab* PO 4,000 units 2100 BEULAH Administration Docusate Sodium 100 mg 08/16/17 21:00 08/20/17 09:17 Colace Cap* PO 100 mg BID BEULAH Administration Enoxaparin Sodium 40 mg 08/17/17 09:00 08/20/17 09:17 Lovenox(*) SUBCUT 40 mg Q24H BEULAH Administration Fentanyl 50 mcg 08/16/17 14:00 08/19/17 14:49 Duragesic Patch 50 Mcg/Hr* TRANSDERM 50 mcg Q72H BEULAH Administration Fluoxetine HCl 40 mg 08/17/17 09:00 04/03/18 09:16 Prozac Cap* PO 40 mg DAILY [facility] Administration Levothyroxine Sodium 100 mcg 08/19/17 06:00 08/19/17 05:47 Synthroid Tab* PO 100 mcg MoWeFr@0600 [facility] Administration Levothyroxine Sodium 75 mcg 08/17/17 06:00 08/20/17 05:44 Synthroid Tab* PO 75 mcg SuTuThSa@0600 [facility] Administration Magnesium Hydroxide 30 ml 08/16/17 13:49 Milk Of Magnesia Liq* PO Q6H PRN CONSTIPATION Multi-Ingredient Mouthwash/Gargle 5 ml 08/16/17 20:47 08/20/17 13:21 Magic Mouth Was-Amadou/Maal/Lido* SWISH SPIT 5 ml Q4H PRN Administration Mouth Soreness Ondansetron HCl 4 mg 08/16/17 14:05 08/20/17 08:23 Zofran Odt Tab* PO 4 mg Q6H PRN Administration NAUSEA Pharmacy Profile Note 1 note 08/16/17 19:00 08/20/17 07:07 Fentanyl Patch Check Q Shift N/A 1 note 0700,1900 [facility] Administration Prochlorperazine 10 mg 08/16/17 14:25 Compazine Tab* PO Q8HR PRN NAUSEA Senna 2 tab 08/16/17 21:00 08/19/17 20:32 Senokot Tab* PO Not Given BEDTIME [facility] Vital Signs: Vital Signs Temp Pulse Resp BP Pulse Ox 98.5 F 94 20 98/56 95 08/20/17 15:31 08/20/17 15:31 08/20/17 17:20 08/20/17 15:31 08/20/17 17:22 Exam: LUNGS: Clear HEART: S1, S2 ABDOMEN: Soft EXTREMITIES: Right arm in splint. Ecchymotic areas on arm. Right hand less swollen. Pulses intact Assessment/Plan: 1. Right Humerus Fracture: Brace AAT. NWB RUE. PT/OT 2. 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 PT/OT 3. Stage IV Lung Cancer: Onc Follow up regarding chemo 4. Anxiety: Xanax 5. Depression: Wellbutrin/Prozac 6. Analgesia: Duragesic/[place] 7. DVT Prophylaxis: Lovenox 8. Mucositis: Magic Mouthwash 9. Hypothroidism: Synthroid 10. Hand swelling: discussed with OT-Kendell Martínez 08/20/17 17:47
[2017-08-20] MEDS: Senna TAB PO SCH (21:24)
[2017-08-20] MEDS: Atorvastatin* 40 MG TAB PO SCH (21:24)
[2017-08-20] MEDS: Cholecalciferol TAB* 1000 UNITS PO SCH (21:25)
[2017-08-21] MEDS: Levothyroxine TAB* 100 MCG TAB PO SCH (05:47)
[2017-08-21] MEDS: fentaNYL Patch Check Q Shift 1 NOTE SCH ×2 (07:08→23:32)
[2017-08-21] MEDS: BuPROPion XL* 150 MG TAB.XL PO SCH (08:11)
[2017-08-21] MEDS: Docusate CAP* 100 MG PO SCH ×2 (08:12→21:27)
[2017-08-21] MEDS: ALPRAZolam TAB* 0.25 MG PO PRN ×2 (08:12→17:10)
[2017-08-21] MEDS: Enoxaparin(*) 40 MG/0.4 ML SYR SUBCUT SCH (08:12)
[2017-08-21] MEDS: FLUoxetine CAP* 20 MG PO SCH (08:12)
[2017-08-21] MEDS: Cetirizine* 10 MG TAB PO SCH (08:12)
[2017-08-21] MEDS: HYDROcodone/ACETAMIN 5-325 MG* 1 TAB PO PRN ×3 (08:13→21:31)
[2017-08-21] MEDS: Atorvastatin* 40 MG TAB PO SCH (21:26)
[2017-08-21] MEDS: Senna TAB PO SCH (21:27)
[2017-08-21] MEDS: Cholecalciferol TAB* 1000 UNITS PO SCH (21:27)
--- NOTE | 2017-08-21 23:16 | PN ---
Progress Note Date of Service: 08/21/17 Note: TAWANNA EDMONDSON was visited. Therapy notes read and reviewed. I had a long talk with Lillie about her current situation and her emotional state. She feels like events are piling up on her; she could deal with the leg weakness, but the leg weakness and the broken arm on top of it seem almost unfair to her. She has a lot of difficulty with anxiety worrying about her current situation. I told her we would increase her Xanax, and ask psychiatry for other recommendations. Current Medications: Active Medications Generic Name Dose Route Start Last Admin Trade Name Freq PRN Reason Stop Dose Admin Acetaminophen 650 mg 08/16/17 13:49 Tylenol Tab* PO Q6H PRN FEVER/PAIN Hydrocodone Bitart/Acetaminophen 2 tab 08/16/17 14:09 08/19/17 20:31 [place] 5-325 Tab* PO 2 tab Q4H PRN Administration PAIN - SEVERE Hydrocodone Bitart/Acetaminophen 1 tab 08/16/17 14:25 08/21/17 21:31 [place] 5-325 Tab* PO 1 tab Q4H PRN Administration PAIN - MODERATE TO SEVERE Alprazolam 0.25 mg 08/16/17 14:09 08/21/17 17:10 Xanax Tab* PO 0.25 mg Q8H PRN Administration ANXIETY Alprazolam 0.5 mg 08/21/17 20:27 Xanax Tab* PO Q8H PRN ANXIETY - SEVERE Atorvastatin Calcium 40 mg 08/16/17 21:00 08/21/17 21:26 Lipitor* PO 40 mg 2100 BEULAH Administration Bisacodyl 10 mg 08/16/17 13:49 Dulcolax Supp* [place] DAILY PRN CONSTIPATION Bupropion HCl 150 mg 08/17/17 09:00 08/21/17 08:11 Wellbutrin Xl * PO 150 mg DAILY BEULAH Administration Protocol Cetirizine HCl 10 mg 08/17/17 09:00 08/21/17 08:12 Zyrtec* PO 10 mg DAILY BEULAH Administration Cholecalciferol 4,000 units 08/17/17 21:00 08/21/17 21:27 Vitamin D Tab* PO 4,000 units 2100 BEULAH Administration Docusate Sodium 100 mg 08/16/17 21:00 08/21/17 21:27 Colace Cap* PO 100 mg BID BEULAH Administration Enoxaparin Sodium 40 mg 08/17/17 09:00 08/21/17 08:12 Lovenox(*) SUBCUT 40 mg Q24H BEULAH Administration Fentanyl 50 mcg 08/16/17 14:00 08/19/17 14:49 Duragesic Patch 50 Mcg/Hr* TRANSDERM 50 mcg Q72H BEULAH Administration Fluoxetine HCl 40 mg 08/17/17 09:00 08/21/17 08:12 Prozac Cap* PO 40 mg DAILY BEULAH Administration Levothyroxine Sodium 100 mcg 08/19/17 06:00 08/21/17 05:47 Synthroid Tab* PO 100 mcg MoWeFr@0600 [facility] Administration Levothyroxine Sodium 75 mcg 08/17/17 06:00 08/20/17 05:44 Synthroid Tab* PO 75 mcg SuTuThSa@0600 [facility] Administration Magnesium Hydroxide 30 ml 08/16/17 13:49 Milk Of Magnesia Liq* PO Q6H PRN CONSTIPATION Multi-Ingredient Mouthwash/Gargle 5 ml 08/16/17 20:47 08/20/17 13:21 Magic Mouth Was-Amadou/Maal/Lido* SWISH SPIT 5 ml Q4H PRN Administration Mouth Soreness Ondansetron HCl 4 mg 08/16/17 14:05 08/20/17 08:23 Zofran Odt Tab* PO 4 mg Q6H PRN Administration NAUSEA Pharmacy Profile Note 1 note 08/16/17 19:00 08/21/17 07:08 Fentanyl Patch Check Q Shift N/A 1 note 0700,1900 [facility] Administration Prochlorperazine 10 mg 08/16/17 14:25 Compazine Tab* PO Q8HR PRN NAUSEA Senna 2 tab 08/16/17 21:00 08/21/17 21:27 Senokot Tab* PO 2 tab BEDTIME [facility] Administration Vital Signs: Vital Signs Temp Pulse Resp BP Pulse Ox 98.3 F 102 16 87/62 95 08/21/17 15:28 08/21/17 15:28 08/21/17 21:31 08/21/17 15:28 08/21/17 16:30 Exam: LUNGS: Clear HEART: S1, S2 ABDOMEN: Soft EXTREMITIES: Right arm in splint. Ecchymotic areas on arm. Right hand less swollen. Pulses intact Assessment/Plan: 1. Right Humerus Fracture: Brace AAT. NWB RUE. PT/OT 2. 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 PT/OT 3. Stage IV Lung Cancer: Onc Follow up regarding chemo 4. Anxiety: Xanax. May have 0.5 mg if needed 5. Depression: Wellbutrin/Prozac. Will ask psychiatry to see. 6. Analgesia: Duragesic/[place] 7. DVT Prophylaxis: Lovenox 8. Mucositis: Magic Mouthwash 9. Hypothroidism: Synthroid 10. Hand swelling: discussed with OT-Isotoner Glove. Will try to get a sleeve as well. 11. Anorexia: will ask dietary to see 08/21/17 23:16
[2017-08-22] MEDS: Levothyroxine TAB* 75 MCG TAB PO SCH (05:07)
[2017-08-22] MEDS: fentaNYL Patch Check Q Shift 1 NOTE SCH ×2 (07:13→23:31)
[2017-08-22] MEDS: FLUoxetine CAP* 20 MG PO SCH (08:07)
[2017-08-22] MEDS: BuPROPion XL* 150 MG TAB.XL PO SCH (08:07)
[2017-08-22] MEDS: Enoxaparin(*) 40 MG/0.4 ML SYR SUBCUT SCH (08:07)
[2017-08-22] MEDS: Docusate CAP* 100 MG PO SCH ×2 (08:07→21:02)
[2017-08-22] MEDS: Cetirizine* 10 MG TAB PO SCH (08:07)
[2017-08-22] MEDS: HYDROcodone/ACETAMIN 5-325 MG* 1 TAB PO PRN ×3 (08:08→21:02)
[2017-08-22] MEDS: Ondansetron ODT TAB* 4 MG PO PRN (08:08)
[2017-08-22] MEDS: fentaNYL PATCH 50 MCG/HR TRANSDERM SCH (14:41)
--- NOTE | 2017-08-22 16:25 | PN ---
Progress Note Date of Service: 08/22/17 Note: TAWANNA EDMONDSON was visited. Therapy notes read and reviewed. I met with Lillie again today. A better day today for her. Slightly more optimistic, spirits better Current Medications: Active Medications Generic Name Dose Route Start Last Admin Trade Name Freq PRN Reason Stop Dose Admin Acetaminophen 650 mg 08/16/17 13:49 Tylenol Tab* PO Q6H PRN FEVER/PAIN Hydrocodone Bitart/Acetaminophen 2 tab 08/16/17 14:09 08/19/17 20:31 [place] 5-325 Tab* PO 2 tab Q4H PRN Administration PAIN - SEVERE Hydrocodone Bitart/Acetaminophen 1 tab 08/16/17 14:25 08/22/17 13:20 [place] 5-325 Tab* PO 1 tab Q4H PRN Administration PAIN - MODERATE TO SEVERE Alprazolam 0.25 mg 08/16/17 14:09 08/21/17 17:10 Xanax Tab* PO 0.25 mg Q8H PRN Administration ANXIETY Alprazolam 0.5 mg 08/21/17 20:27 Xanax Tab* PO Q8H PRN ANXIETY - SEVERE Atorvastatin Calcium 40 mg 08/16/17 21:00 08/21/17 21:26 Lipitor* PO 40 mg 2100 BEULAH Administration Bisacodyl 10 mg 08/16/17 13:49 Dulcolax Supp* [place] DAILY PRN CONSTIPATION Bupropion HCl 150 mg 08/17/17 09:00 08/22/17 08:07 Wellbutrin Xl * PO 150 mg DAILY BEULAH Administration Protocol Cetirizine HCl 10 mg 08/17/17 09:00 08/22/17 08:07 Zyrtec* PO 10 mg DAILY BEULAH Administration Cholecalciferol 4,000 units 08/17/17 21:00 08/21/17 21:27 Vitamin D Tab* PO 4,000 units 2100 BEULAH Administration Docusate Sodium 100 mg 08/16/17 21:00 08/22/17 08:07 Colace Cap* PO 100 mg BID BEULAH Administration Enoxaparin Sodium 40 mg 08/17/17 09:00 08/22/17 08:07 Lovenox(*) SUBCUT 40 mg Q24H BEULAH Administration Fentanyl 50 mcg 08/16/17 14:00 08/22/17 14:41 Duragesic Patch 50 Mcg/Hr* TRANSDERM 50 mcg Q72H BEULAH Administration Fluoxetine HCl 40 mg 08/17/17 09:00 08/22/17 08:07 Prozac Cap* PO 40 mg DAILY BEULAH Administration Levothyroxine Sodium 100 mcg 08/19/17 06:00 08/21/17 05:47 Synthroid Tab* PO 100 mcg MoWeFr@0600 BEULAH Administration Levothyroxine Sodium 75 mcg 08/17/17 06:00 08/22/17 05:07 Synthroid Tab* PO 75 mcg SuTuThSa@0600 BEULAH Administration Magnesium Hydroxide 30 ml 08/16/17 13:49 Milk Of Magnesia Liq* PO Q6H PRN CONSTIPATION Multi-Ingredient Mouthwash/Gargle 5 ml 08/16/17 20:47 08/20/17 13:21 Magic Mouth Was-Amadou/Maal/Lido* SWISH SPIT 5 ml Q4H PRN Administration Mouth Soreness Ondansetron HCl 4 mg 08/16/17 14:05 08/22/17 08:08 Zofran Odt Tab* PO 4 mg Q6H PRN Administration NAUSEA Pharmacy Profile Note 1 note 08/16/17 19:00 08/22/17 07:13 Fentanyl Patch Check Q Shift N/A 1 note 0700,1900 [facility] Administration Prochlorperazine 10 mg 08/16/17 14:25 Compazine Tab* PO Q8HR PRN NAUSEA Senna 2 tab 08/16/17 21:00 08/21/17 21:27 Senokot Tab* PO 2 tab BEDTIME BEULAH Administration Vital Signs: Vital Signs Temp Pulse Resp BP Pulse Ox 98.2 F 99 16 124/72 96 08/22/17 05:10 08/22/17 05:10 08/22/17 14:41 08/22/17 09:21 08/22/17 05:10 Exam: LUNGS: Clear HEART: S1, S2 ABDOMEN: Soft EXTREMITIES: Right arm in splint. Ecchymotic areas on arm. Right hand less swollen. Pulses intact Assessment/Plan: 1. Right Humerus Fracture: Brace AAT. NWB RUE. PT/OT 2. 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 PT/OT 3. Stage IV Lung Cancer: Onc Follow up regarding chemo 4. Anxiety: Xanax. May have 0.5 mg if needed 5. Depression: Wellbutrin/Prozac. Better today 6. Analgesia: Duragesic/[place] 7. DVT Prophylaxis: Lovenox 8. Mucositis: Magic Mouthwash 9. Hypothroidism: Synthroid 10. Hand swelling: discussed with OT-Isotoner Glokathy. Will try to get a sleeve as well. 11. Anorexia: will ask dietary to see 08/22/17 16:25
[2017-08-22] MEDS: Magic Mouth Was-BEN/MAAL/LIDO SWISH SPIT PRN (17:20)
[2017-08-22] MEDS: Atorvastatin* 40 MG TAB PO SCH (21:01)
[2017-08-22] MEDS: Senna TAB PO SCH (21:02)
[2017-08-22] MEDS: Cholecalciferol TAB* 1000 UNITS PO SCH (21:02)
[2017-08-23] MEDS: Levothyroxine TAB* 100 MCG TAB PO SCH (05:10)
[2017-08-23] MEDS: fentaNYL Patch Check Q Shift 1 NOTE SCH ×2 (07:17→23:35)
[2017-08-23] MEDS: Ondansetron ODT TAB* 4 MG PO PRN (09:28)
[2017-08-23] MEDS: Enoxaparin(*) 40 MG/0.4 ML SYR SUBCUT SCH (09:28)
[2017-08-23] MEDS: HYDROcodone/ACETAMIN 5-325 MG* 1 TAB PO PRN ×3 (09:28→21:40)
[2017-08-23] MEDS: FLUoxetine CAP* 20 MG PO SCH (09:29)
[2017-08-23] MEDS: ALPRAZolam TAB* 0.25 MG PO PRN ×2 (09:29→21:39)
[2017-08-23] MEDS: Docusate CAP* 100 MG PO SCH ×2 (09:29→21:39)
[2017-08-23] MEDS: Cetirizine* 10 MG TAB PO SCH (09:30)
[2017-08-23] MEDS: BuPROPion XL* 150 MG TAB.XL PO SCH (09:30)
--- NOTE | 2017-08-23 17:19 | PN ---
Progress Note Date of Service: 08/23/17 Note: TAWANNA EDMONDSON was visited. Therapy notes read and reviewed. She seems to be eating better and doing more. Spirits have improved. Current Medications: Active Medications Generic Name Dose Route Start Last Admin Trade Name Freq PRN Reason Stop Dose Admin Acetaminophen 650 mg 08/16/17 13:49 Tylenol Tab* PO Q6H PRN FEVER/PAIN Hydrocodone Bitart/Acetaminophen 2 tab 08/16/17 14:09 08/19/17 20:31 [place] 5-325 Tab* PO 2 tab Q4H PRN Administration PAIN - SEVERE Hydrocodone Bitart/Acetaminophen 1 tab 08/16/17 14:25 08/23/17 13:35 [place] 5-325 Tab* PO 1 tab Q4H PRN Administration PAIN - MODERATE TO SEVERE Alprazolam 0.25 mg 08/16/17 14:09 08/23/17 09:29 Xanax Tab* PO 0.25 mg Q8H PRN Administration ANXIETY Alprazolam 0.5 mg 08/21/17 20:27 Xanax Tab* PO Q8H PRN ANXIETY - SEVERE Atorvastatin Calcium 40 mg 08/16/17 21:00 08/22/17 21:01 Lipitor* PO 40 mg 2100 BEULAH Administration Bisacodyl 10 mg 08/16/17 13:49 Dulcolax Supp* [place] DAILY PRN CONSTIPATION Bupropion HCl 150 mg 08/17/17 09:00 08/23/17 09:30 Wellbutrin Xl * PO 150 mg DAILY BEULAH Administration Protocol Cetirizine HCl 10 mg 08/17/17 09:00 08/23/17 09:30 Zyrtec* PO 10 mg DAILY BEULAH Administration Cholecalciferol 4,000 units 08/17/17 21:00 08/22/17 21:02 Vitamin D Tab* PO 4,000 units 2100 BEULAH Administration Docusate Sodium 100 mg 08/16/17 21:00 08/23/17 09:29 Colace Cap* PO 100 mg BID BEULAH Administration Enoxaparin Sodium 40 mg 08/17/17 09:00 08/23/17 09:28 Lovenox(*) SUBCUT 40 mg Q24H BEULAH Administration Fentanyl 50 mcg 08/16/17 14:00 08/22/17 14:41 Duragesic Patch 50 Mcg/Hr* TRANSDERM 50 mcg Q72H BEULAH Administration Fluoxetine HCl 40 mg 08/17/17 09:00 08/23/17 09:29 Prozac Cap* PO 40 mg DAILY BEULAH Administration Levothyroxine Sodium 100 mcg 08/19/17 06:00 08/23/17 05:10 Synthroid Tab* PO 100 mcg MoWeFr@0600 BEULAH Administration Levothyroxine Sodium 75 mcg 08/17/17 06:00 08/22/17 05:07 Synthroid Tab* PO 75 mcg SuTuThSa@0600 BEULAH Administration Magnesium Hydroxide 30 ml 08/16/17 13:49 Milk Of Magnesia Liq* PO Q6H PRN CONSTIPATION Multi-Ingredient Mouthwash/Gargle 5 ml 08/16/17 20:47 08/22/17 17:20 Magic Mouth Was-Amadou/Maal/Lido* SWISH SPIT 5 ml Q4H PRN Administration Mouth Soreness Ondansetron HCl 4 mg 08/16/17 14:05 08/23/17 09:28 Zofran Odt Tab* PO 4 mg Q6H PRN Administration NAUSEA Pharmacy Profile Note 1 note 08/16/17 19:00 08/23/17 07:17 Fentanyl Patch Check Q Shift N/A 1 note 0700,1900 [facility] Administration Prochlorperazine 10 mg 08/16/17 14:25 Compazine Tab* PO Q8HR PRN NAUSEA Senna 2 tab 08/16/17 21:00 08/22/17 21:02 Senokot Tab* PO 2 tab BEDTIME BEULAH Administration Vital Signs: Vital Signs Temp Pulse Resp BP Pulse Ox 98.6 F 101 18 109/53 98 08/23/17 15:08 08/23/17 15:08 08/23/17 16:28 08/23/17 15:08 08/23/17 15:08 Exam: LUNGS: Clear HEART: S1, S2 ABDOMEN: Soft EXTREMITIES: Right arm in splint. Ecchymotic areas on arm. Right hand less swollen. Pulses intact Assessment/Plan: 1. Right Humerus Fracture: Brace AAT. NWB RUE. PT/OT 2. 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 PT/OT 3. Stage IV Lung Cancer: Onc Follow up regarding chemo 4. Anxiety: Xanax. May have 0.5 mg if needed 5. Depression: Wellbutrin/Prozac. Better today 6. Analgesia: Duragesic/[place] 7. DVT Prophylaxis: Lovenox 8. Mucositis: Magic Mouthwash 9. Hypothroidism: Synthroid 10. Hand swelling: discussed with OT-Isotoner Glokathy. Will try to get a sleeve as well. 11. Anorexia: will ask dietary to see 08/23/17 17:19
[2017-08-23] MEDS: Cholecalciferol TAB* 1000 UNITS PO SCH (21:39)
[2017-08-23] MEDS: Atorvastatin* 40 MG TAB PO SCH (21:39)
[2017-08-23] MEDS: Senna TAB PO SCH (21:42)
[2017-08-24] MEDS: Levothyroxine TAB* 75 MCG TAB PO SCH (05:22)
[2017-08-24] MEDS: fentaNYL Patch Check Q Shift 1 NOTE SCH ×2 (07:07→19:02)
[2017-08-24] MEDS: HYDROcodone/ACETAMIN 5-325 MG* 1 TAB PO PRN ×2 (11:25→21:34)
[2017-08-24] MEDS: BuPROPion XL* 150 MG TAB.XL PO SCH (11:25)
[2017-08-24] MEDS: FLUoxetine CAP* 20 MG PO SCH (11:25)
[2017-08-24] MEDS: Enoxaparin(*) 40 MG/0.4 ML SYR SUBCUT SCH (11:25)
[2017-08-24] MEDS: Docusate CAP* 100 MG PO SCH ×2 (11:25→21:31)
[2017-08-24] MEDS: Cetirizine* 10 MG TAB PO SCH (11:25)
--- NOTE | 2017-08-24 15:30 | PN ---
Progress Note Date of Service: 08/24/17 Note: TAWANNA EDMONDSON was visited. Therapy notes read and reviewed. She is in good spirits today. Her wig has arrived. Current Medications: Active Medications Generic Name Dose Route Start Last Admin Trade Name Freq PRN Reason Stop Dose Admin Acetaminophen 650 mg 08/16/17 13:49 Tylenol Tab* PO Q6H PRN FEVER/PAIN Hydrocodone Bitart/Acetaminophen 2 tab 08/16/17 14:09 08/24/17 11:25 [place] 5-325 Tab* PO 2 tab Q4H PRN Administration PAIN - SEVERE Hydrocodone Bitart/Acetaminophen 1 tab 08/16/17 14:25 08/23/17 21:40 [place] 5-325 Tab* PO 1 tab Q4H PRN Administration PAIN - MODERATE TO SEVERE Alprazolam 0.25 mg 08/16/17 14:09 08/23/17 21:39 Xanax Tab* PO 0.25 mg Q8H PRN Administration ANXIETY Alprazolam 0.5 mg 08/21/17 20:27 Xanax Tab* PO Q8H PRN ANXIETY - SEVERE Atorvastatin Calcium 40 mg 08/16/17 21:00 08/23/17 21:39 Lipitor* PO 40 mg 2100 BEULAH Administration Bisacodyl 10 mg 08/16/17 13:49 Dulcolax Supp* [place] DAILY PRN CONSTIPATION Bupropion HCl 150 mg 08/17/17 09:00 08/24/17 11:25 Wellbutrin Xl * PO 150 mg DAILY BEULAH Administration Protocol Cetirizine HCl 10 mg 08/17/17 09:00 08/24/17 11:25 Zyrtec* PO 10 mg DAILY BEULAH Administration Cholecalciferol 4,000 units 08/17/17 21:00 08/23/17 21:39 Vitamin D Tab* PO 4,000 units 2100 BEULAH Administration Docusate Sodium 100 mg 08/16/17 21:00 08/24/17 11:25 Colace Cap* PO 100 mg BID BEULAH Administration Enoxaparin Sodium 40 mg 08/17/17 09:00 08/24/17 11:25 Lovenox(*) SUBCUT 40 mg Q24H BEULAH Administration Fentanyl 50 mcg 08/16/17 14:00 08/22/17 14:41 Duragesic Patch 50 Mcg/Hr* TRANSDERM 50 mcg Q72H BEULAH Administration Fluoxetine HCl 40 mg 08/17/17 09:00 08/24/17 11:25 Prozac Cap* PO 40 mg DAILY BEULAH Administration Levothyroxine Sodium 100 mcg 08/19/17 06:00 08/23/17 05:10 Synthroid Tab* PO 100 mcg MoWeFr@0600 BEULAH Administration Levothyroxine Sodium 75 mcg 08/17/17 06:00 08/24/17 05:22 Synthroid Tab* PO 75 mcg SuTuThSa@0600 BEULAH Administration Magnesium Hydroxide 30 ml 08/16/17 13:49 Milk Of Magnesia Liq* PO Q6H PRN CONSTIPATION Multi-Ingredient Mouthwash/Gargle 5 ml 08/16/17 20:47 08/22/17 17:20 Magic Mouth Was-Amadou/Maal/Lido* SWISH SPIT 5 ml Q4H PRN Administration Mouth Soreness Ondansetron HCl 4 mg 08/16/17 14:05 08/23/17 09:28 Zofran Odt Tab* PO 4 mg Q6H PRN Administration NAUSEA Pharmacy Profile Note 1 note 08/16/17 19:00 08/24/17 07:07 Fentanyl Patch Check Q Shift N/A 1 note 0700,1900 [facility] Administration Prochlorperazine 10 mg 08/16/17 14:25 Compazine Tab* PO Q8HR PRN NAUSEA Senna 2 tab 08/16/17 21:00 08/23/17 21:42 Senokot Tab* PO Not Given BEDTIME [facility] Vital Signs: Vital Signs Temp Pulse Resp BP Pulse Ox 98.2 F 92 18 106/49 91 08/24/17 05:25 08/24/17 05:25 08/24/17 14:11 08/24/17 05:25 08/24/17 08:00 Exam: LUNGS: Clear HEART: S1, S2 ABDOMEN: Soft EXTREMITIES: Right arm in splint. Ecchymotic areas on arm. Right hand less swollen. Pulses intact Assessment/Plan: 1. Right Humerus Fracture: Brace AAT. NWB RUE. PT/OT 2. 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 PT/OT 3. Stage IV Lung Cancer: Onc Follow up regarding chemo 4. Anxiety: Xanax. May have 0.5 mg if needed 5. Depression: Wellbutrin/Prozac. Better today 6. Analgesia: Duragesic/[place] 7. DVT Prophylaxis: Lovenox 8. Mucositis: Magic Mouthwash 9. Hypothroidism: Synthroid 10. Hand swelling: discussed with OT-Isotoner Tanya. Will try to get a sleeve as well. 11. Anorexia: will ask dietary to see 08/24/17 15:31
[2017-08-24] MEDS: Atorvastatin* 40 MG TAB PO SCH (21:31)
[2017-08-24] MEDS: Cholecalciferol TAB* 1000 UNITS PO SCH (21:31)
[2017-08-24] MEDS: Senna TAB PO SCH (21:32)
[2017-08-25] MEDS: Levothyroxine TAB* 75 MCG TAB PO SCH (06:19)
[2017-08-25] MEDS: fentaNYL Patch Check Q Shift 1 NOTE SCH ×2 (06:25→14:32)
[2017-08-25] MEDS: Cetirizine* 10 MG TAB PO SCH (08:41)
[2017-08-25] MEDS: Docusate CAP* 100 MG PO SCH ×2 (08:41→21:36)
[2017-08-25] MEDS: BuPROPion XL* 150 MG TAB.XL PO SCH (08:41)
[2017-08-25] MEDS: Enoxaparin(*) 40 MG/0.4 ML SYR SUBCUT SCH (08:41)
[2017-08-25] MEDS: FLUoxetine CAP* 20 MG PO SCH (08:41)
[2017-08-25] MEDS: HYDROcodone/ACETAMIN 5-325 MG* 1 TAB PO PRN ×2 (08:45→21:25)
--- NOTE | 2017-08-25 12:50 | PN ---
Progress Note Date of Service: 08/25/17 Note: TAWANNA EDMONDSON was visited. Nursing notes read and reviewed. She feels ok today. Ate lunch, spirits are ok. Current Medications: Active Medications Generic Name Dose Route Start Last Admin Trade Name Freq PRN Reason Stop Dose Admin Acetaminophen 650 mg 08/16/17 13:49 Tylenol Tab* PO Q6H PRN FEVER/PAIN Hydrocodone Bitart/Acetaminophen 2 tab 08/16/17 14:09 08/25/17 08:45 [place] 5-325 Tab* PO 2 tab Q4H PRN Administration PAIN - SEVERE Hydrocodone Bitart/Acetaminophen 1 tab 08/16/17 14:25 08/23/17 21:40 [place] 5-325 Tab* PO 1 tab Q4H PRN Administration PAIN - MODERATE TO SEVERE Alprazolam 0.25 mg 08/16/17 14:09 08/23/17 21:39 Xanax Tab* PO 0.25 mg Q8H PRN Administration ANXIETY Alprazolam 0.5 mg 08/21/17 20:27 Xanax Tab* PO Q8H PRN ANXIETY - SEVERE Atorvastatin Calcium 40 mg 08/16/17 21:00 08/24/17 21:31 Lipitor* PO 40 mg 2100 BEULAH Administration Bisacodyl 10 mg 08/16/17 13:49 Dulcolax Supp* [place] DAILY PRN CONSTIPATION Bupropion HCl 150 mg 08/17/17 09:00 08/25/17 08:41 Wellbutrin Xl * PO 150 mg DAILY BEULAH Administration Protocol Cetirizine HCl 10 mg 08/17/17 09:00 08/25/17 08:41 Zyrtec* PO 10 mg DAILY BEULAH Administration Cholecalciferol 4,000 units 08/17/17 21:00 08/24/17 21:31 Vitamin D Tab* PO 4,000 units 2100 BEULAH Administration Docusate Sodium 100 mg 08/16/17 21:00 08/25/17 08:41 Colace Cap* PO 100 mg BID BEULAH Administration Enoxaparin Sodium 40 mg 08/17/17 09:00 08/25/17 08:41 Lovenox(*) SUBCUT 40 mg Q24H BEULAH Administration Fentanyl 50 mcg 08/16/17 14:00 08/22/17 14:41 Duragesic Patch 50 Mcg/Hr* TRANSDERM 50 mcg Q72H BEULAH Administration Fluoxetine HCl 40 mg 08/17/17 09:00 08/25/17 08:41 Prozac Cap* PO 40 mg DAILY BEULAH Administration Levothyroxine Sodium 100 mcg 08/19/17 06:00 08/23/17 05:10 Synthroid Tab* PO 100 mcg MoWeFr@0600 BEULAH Administration Levothyroxine Sodium 75 mcg 08/17/17 06:00 08/25/17 06:19 Synthroid Tab* PO 75 mcg SuTuThSa@0600 BEULAH Administration Magnesium Hydroxide 30 ml 08/16/17 13:49 Milk Of Magnesia Liq* PO Q6H PRN CONSTIPATION Multi-Ingredient Mouthwash/Gargle 5 ml 08/16/17 20:47 08/22/17 17:20 Magic Mouth Was-Amadou/Maal/Lido* SWISH SPIT 5 ml Q4H PRN Administration Mouth Soreness Ondansetron HCl 4 mg 08/16/17 14:05 08/23/17 09:28 Zofran Odt Tab* PO 4 mg Q6H PRN Administration NAUSEA Pharmacy Profile Note 1 note 08/16/17 19:00 08/25/17 06:25 Fentanyl Patch Check Q Shift N/A 1 note 0700,1900 [facility] Administration Prochlorperazine 10 mg 08/16/17 14:25 Compazine Tab* PO Q8HR PRN NAUSEA Senna 2 tab 08/16/17 21:00 08/24/17 21:32 Senokot Tab* PO Not Given BEDTIME [facility] Vital Signs: Vital Signs Temp Pulse Resp BP Pulse Ox 98.3 F 93 16 118/62 93 08/25/17 06:20 08/25/17 06:20 08/25/17 10:38 08/25/17 06:20 08/24/17 15:53 Exam: LUNGS: Clear HEART: S1, S2 ABDOMEN: Soft EXTREMITIES: Right arm in splint. Ecchymotic areas on arm. Right hand less swollen. Pulses intact Assessment/Plan: 1. Right Humerus Fracture: Brace AAT. NWB RUE. PT/OT 2. 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 PT/OT 3. Stage IV Lung Cancer: Onc Follow up regarding chemo 4. Anxiety: Xanax. May have 0.5 mg if needed 5. Depression: Wellbutrin/Prozac. Better today 6. Analgesia: Duragesic/[place] 7. DVT Prophylaxis: Lovenox 8. Mucositis: Magic Mouthwash 9. Hypothroidism: Synthroid 10. Hand swelling: discussed with OT-Isotoner Tanya. Will try to get a sleeve as well. 11. Anorexia: Asked dietary to see. Seems better 08/25/17 12:51
[2017-08-25] MEDS: fentaNYL PATCH 50 MCG/HR TRANSDERM SCH (14:27)
[2017-08-25] MEDS: Senna TAB PO SCH (21:20)
[2017-08-25] MEDS: ALPRAZolam TAB* 0.5 MG PO PRN (21:24)
[2017-08-25] MEDS: Atorvastatin* 40 MG TAB PO SCH (21:24)
[2017-08-25] MEDS: Cholecalciferol TAB* 1000 UNITS PO SCH (21:24)
[2017-08-26 05:31] LABS: ABS Basophils 0.1 10^3/ul (0-0.2); ABS Eosinophils 0.1 10^3/ul (0-0.6); ABS Monocytes 0.4 10^3/ul (0-0.8); ABS Neutrophils 2.9 10^3/ul (1.5-7.7); ABS Nucleated RBC 0 10^3/ul; Eosinophil % 1.2 % (0-6); Hematocrit 34 % (35-47); Hemoglobin 11.2 g/dl (12.0-16.0); Lymphocyte % 21.7 % (25-47); Mean Corpuscular HGB Conc 33 g/dl (31-36); Mean Corpuscular Hemoglobin 29 pg (27-31); Mean Corpuscular Volume 88 fL (80-97); Mean Platelet Volume 6.6 um3 (7.4-10.4); Nucleated Red Blood Cells % 0.1; Platelet Count 310 10^3/ul (150-450); Red Blood Count 3.92 10^6/ul (4.0-5.4); Red Cell Distribution Width 20 % (10.5-15); White Blood Count 4.5 10^3/ul (3.5-10.8)
[2017-08-26] MEDS: Levothyroxine TAB* 100 MCG TAB PO SCH (05:39)
[2017-08-26 05:51] LABS: EGFR Non-African American 88.1 (>60)
[2017-08-26] MEDS: fentaNYL Patch Check Q Shift 1 NOTE SCH ×3 (07:07→23:35)
[2017-08-26] MEDS: BuPROPion XL* 150 MG TAB.XL PO SCH (08:06)
[2017-08-26] MEDS: Enoxaparin(*) 40 MG/0.4 ML SYR SUBCUT SCH (08:06)
[2017-08-26] MEDS: Docusate CAP* 100 MG PO SCH ×2 (08:06→19:06)
[2017-08-26] MEDS: Cetirizine* 10 MG TAB PO SCH (08:06)
[2017-08-26] MEDS: FLUoxetine CAP* 20 MG PO SCH (08:07)
[2017-08-26] MEDS: ALPRAZolam TAB* 0.25 MG PO PRN ×2 (08:07→19:05)
[2017-08-26] MEDS: HYDROcodone/ACETAMIN 5-325 MG* 1 TAB PO PRN ×3 (08:07→19:05)
--- NOTE | 2017-08-26 16:13 | PN ---
Progress Note Date of Service: 08/26/17 Note: TAWANNA EDMONDSON was visited. Therapy notes read and reviewed.She had a bad morning emotionally, but better this afternoon. Current Medications: Active Medications Generic Name Dose Route Start Last Admin Trade Name Freq PRN Reason Stop Dose Admin Acetaminophen 650 mg 08/16/17 13:49 Tylenol Tab* PO Q6H PRN FEVER/PAIN Hydrocodone Bitart/Acetaminophen 2 tab 08/16/17 14:09 08/25/17 21:25 [place] 5-325 Tab* PO 2 tab Q4H PRN Administration PAIN - SEVERE Hydrocodone Bitart/Acetaminophen 1 tab 08/16/17 14:25 08/26/17 13:09 [place] 5-325 Tab* PO 1 tab Q4H PRN Administration PAIN - MODERATE TO SEVERE Alprazolam 0.25 mg 08/16/17 14:09 08/26/17 08:07 Xanax Tab* PO 0.25 mg Q8H PRN Administration ANXIETY Alprazolam 0.5 mg 08/21/17 20:27 08/25/17 21:24 Xanax Tab* PO 0.5 mg Q8H PRN Administration ANXIETY - SEVERE Atorvastatin Calcium 40 mg 08/16/17 21:00 08/25/17 21:24 Lipitor* PO 40 mg 2100 BEULAH Administration Bisacodyl 10 mg 08/16/17 13:49 Dulcolax Supp* [place] DAILY PRN CONSTIPATION Bupropion HCl 150 mg 08/17/17 09:00 08/26/17 08:06 Wellbutrin Xl * PO 150 mg DAILY BEULAH Administration Protocol Cetirizine HCl 10 mg 08/17/17 09:00 08/26/17 08:06 Zyrtec* PO 10 mg DAILY BEULAH Administration Cholecalciferol 4,000 units 08/17/17 21:00 08/25/17 21:24 Vitamin D Tab* PO 4,000 units 2100 BEULAH Administration Docusate Sodium 100 mg 08/16/17 21:00 08/26/17 08:06 Colace Cap* PO 100 mg BID BEULAH Administration Enoxaparin Sodium 40 mg 08/17/17 09:00 08/26/17 08:06 Lovenox(*) SUBCUT 40 mg Q24H BEULAH Administration Fentanyl 50 mcg 08/16/17 14:00 08/25/17 14:27 Duragesic Patch 50 Mcg/Hr* TRANSDERM 50 mcg Q72H BEULAH Administration Fluoxetine HCl 40 mg 08/17/17 09:00 08/26/17 08:07 Prozac Cap* PO 40 mg DAILY BEULAH Administration Levothyroxine Sodium 100 mcg 08/19/17 06:00 08/26/17 05:39 Synthroid Tab* PO 100 mcg MoWeFr@0600 BEULAH Administration Levothyroxine Sodium 75 mcg 08/17/17 06:00 08/25/17 06:19 Synthroid Tab* PO 75 mcg SuTuThSa@0600 [facility] Administration Magnesium Hydroxide 30 ml 08/16/17 13:49 Milk Of Magnesia Liq* PO Q6H PRN CONSTIPATION Multi-Ingredient Mouthwash/Gargle 5 ml 08/16/17 20:47 08/22/17 17:20 Magic Mouth Was-Amadou/Maal/Lido* SWISH SPIT 5 ml Q4H PRN Administration Mouth Soreness Ondansetron HCl 4 mg 08/16/17 14:05 08/23/17 09:28 Zofran Odt Tab* PO 4 mg Q6H PRN Administration NAUSEA Pharmacy Profile Note 1 note 08/16/17 19:00 08/26/17 07:27 Fentanyl Patch Check Q Shift N/A Not Given 0700,1900 [facility] Prochlorperazine 10 mg 08/16/17 14:25 Compazine Tab* PO Q8HR PRN NAUSEA Senna 2 tab 08/16/17 21:00 08/25/17 21:20 Senokot Tab* PO Not Given BEDTIME [facility] Vital Signs: Vital Signs Temp Pulse Resp BP Pulse Ox 98.1 F 85 16 103/57 93 08/26/17 05:44 08/26/17 05:44 08/26/17 13:09 08/26/17 05:44 08/26/17 05:44 Lab Results: Laboratory Results - last 24 hr 08/26/17 08/26/17 05:20 05:20 WBC 4.5 RBC 3.92 L Hgb 11.2 L Hct 34 L MCV 88 MCH 29 MCHC 33 RDW 20 H Plt Count 310 MPV 6.6 L Neut % (Auto) 65.6 Lymph % (Auto) 21.7 L [place] % (Auto) 9.1 H Eos % (Auto) 1.2 Baso % (Auto) 2.4 H Absolute Neuts (auto) 2.9 Absolute Lymphs (auto) 1.0 Absolute Monos (auto) 0.4 Absolute Eos (auto) 0.1 Absolute Basos (auto) 0.1 Absolute Nucleated RBC 0 Nucleated RBC % 0.1 Sodium 140 Potassium 3.5 Chloride 107 Carbon Dioxide 29 Anion Gap 4 BUN 9 Creatinine 0.67 Est GFR ( Amer) 113.3 Est GFR (Non-Af Amer) 88.1 BUN/Creatinine Ratio 13.4 Glucose 87 Calcium 8.6 Total Bilirubin 0.50 AST 22 ALT 22 Alkaline Phosphatase 87 Total Protein 5.1 L Albumin 2.8 L Globulin 2.3 Albumin/Globulin Ratio 1.2 Exam: LUNGS: Clear HEART: S1, S2 ABDOMEN: Soft EXTREMITIES: Right arm in splint. Ecchymotic areas on arm. Right hand less swollen. Pulses intact Assessment/Plan: 1. Right Humerus Fracture: Brace AAT. NWB RUE. PT/OT 2. 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 PT/OT 3. Stage IV Lung Cancer: Onc Follow up regarding chemo 4. Anxiety: Xanax. May have 0.5 mg if needed 5. Depression: Wellbutrin/Prozac. Better today 6. Analgesia: Duragesic/[place] 7. DVT Prophylaxis: Lovenox 8. Mucositis: Magic Mouthwash 9. Hypothroidism: Synthroid 10. Hand swelling: discussed with OT-Isotoner Glove. Will try to get a sleeve as well. 11. Anorexia: Asked dietary to see. Seems better 08/26/17 16:14
[2017-08-26] MEDS: Senna TAB PO SCH (19:06)
[2017-08-26] MEDS: Atorvastatin* 40 MG TAB PO SCH (20:00)
[2017-08-26] MEDS: Cholecalciferol TAB* 1000 UNITS PO SCH (20:01)
[2017-08-27] MEDS: Levothyroxine TAB* 75 MCG TAB PO SCH (05:20)
[2017-08-27] MEDS: fentaNYL Patch Check Q Shift 1 NOTE SCH ×2 (07:08→23:28)
[2017-08-27] MEDS: ALPRAZolam TAB* 0.5 MG PO PRN ×2 (07:45→21:52)
[2017-08-27] MEDS: BuPROPion XL* 150 MG TAB.XL PO SCH (08:52)
[2017-08-27] MEDS: Docusate CAP* 100 MG PO SCH ×2 (08:52→21:53)
[2017-08-27] MEDS: Enoxaparin(*) 40 MG/0.4 ML SYR SUBCUT SCH (08:52)
[2017-08-27] MEDS: HYDROcodone/ACETAMIN 5-325 MG* 1 TAB PO PRN ×3 (08:52→21:52)
[2017-08-27] MEDS: FLUoxetine CAP* 20 MG PO SCH (08:52)
[2017-08-27] MEDS: Cetirizine* 10 MG TAB PO SCH (08:52)
--- NOTE | 2017-08-27 12:27 | PMRUTEAM ---
PMRU: Team Meeting Current Status: Nursing: Current Status Skin Deviations [Right 3rd Other Finger] Skin Deviations [Right Arm] Bruise,Other Skin Deviations [Left Elbow] Bruise Skin Deviation Description [ isotonic glove in place Right 3rd Finger] Skin Deviation Description [ sling and brace in place Right Arm] Skin Deviation Description [ abrasion healing and open to air Left Elbow] Physical Therapy: Current Status Bed Mobility Assistance Supervision Transfer Moblility Assistance Supervision Transfer/Bed Mobility Vivek Walker Recommended Devices Transfer Mobility Comment pt. is able to perform a transfer using a vivek- cane S x 1. Ambulation Assistance Supervision Ambulation Assistive Devices Vivek Walker Number of Feet Patient 23' Ambulated Ambulation Comment An improved step to type gait pattern. Stairs Assistance Contact Guard Assist Stairs Recommended Devices Two Rails Number of Stairs 3 Manual Wheelchair Control/ Left UE/Bilateral LE's Technique Wheelchair Propulsion Ability Standby Assistance Wheelchair Distance (ft) 150' Objective Comments patient demosntrates good overall ability in mobility with W/C using BLE. Occupational Therapy: Current Status Upper Body Dressing Max Asst Lower Body Dressing Min Assist Bathing Mod Assist Toileting Min Assist Toilet Transfer Supervision,Contact Guard Assist Shower Transfer Supervision,Contact Guard Assist Eating Supervision Rec Therapy: Current Status Summary of Assessment and RT assessment complete and pt. is aware of RT Clinical Impression services. Pt. is very outgoing, social and has a positive outlook on life. Provided RT material for her and will con't to provide leisure visits. Treatment Goals Pt. will engage in leisure activities while on the unit. Treatment Plan Provide RT services and encourage involvement. Social Work: Current Status Discharge Plan return home with home care svs and family support Potential for Family Training pt's is involved and supportive Anticipated Discharge Home Destination Discharge With home care svs and family support Nutrition: Current Status Monitoring po intake is variable, although notably improved in past 5 days. Having BMs q 1-2 days. Anxiety impairing appetite at times; meds administered. Goals: Physical Therapy: Initial Goals Bed Mobility Assistance Independent Transfer Mobility Assistance Independent Transfer/Bed Mobility Vivek Walker Recommended Devices Ambulation Contact Guard Assist Ambulation Recommended Devices Vivek Walker Ambulation Distance 50 Wheelchair Propulsion Ability Independent Wheelchair Distance (ft) 150 Physical Therapy: Updated Goals Bed Mobility Assistance Independent Transfer Mobility Assistance Independent Transfer/Bed Mobility Vivek Walker Recommended Devices Ambulation Assistance Independent Ambulation Assistive Devices Vivek Walker Ambulation Distance (ft) 50 Wheelchair Propulsion Ability Independent Wheelchair Distance (ft) 150' Stairs Assistance Contact Guard Assist Stairs Recommended Devices Two Rails Number of Stairs 3 Occupational Therapy: Initial Goals Goals to be Completed in (Days 10-14 ) Upper Body Bathing Routine Minimal Contact Assist Lower Body Bathing Routine Supervision/Set Up Upper Body Dressing Routine Minimal Contact Assist Lower Body Dressing Routine Supervision/Set Up Toilet Hygeine and Clothing Modified Independent with Management Routine Toilet Transfer Routine Modified Independent with Step-In Shower Transfer Supervision/Set Up Routine Functional Transfers for ADL Modified Independent with Grooming Routine Modified Independent with Feeding Routine Modified Independent with Nutrition: Goals Intervention Goals 1. Tolerates oral intake w/o difficulty eating/ chewing r/t mucositis and w/o GI distress. 2. Improved oral intake to support weight maintenance, maintenance of lean body mass. 3. Maintains bowel regularity w/o constipation or diarrhea. Social Work: Goals Discharge Plan return home with home care svs and family support Potential for Family Training pt's is involved and supportive Anticipated Discharge Home Destination Discharge With home care svs and family support Care Plan: Care Plan ADL's - Improve/Maintain Start: 08/17/17 12:39 Freq: DAILY Status: Active Target: Protocol: Activity Type Activity Date Activity User E-Sign Co-Sign Detail Recorded Client Recorded Date Recorded By Document 08/26/17 14:15 [id number] 08/26/17 14:15 [id number] 08/26/17 14:15 PMRU Outcome: ADL's/ADL Transfers Orders/Interventions Occupational Therapy Evaluation & Treatment Communication Tool in Patient Room Device Yes Address Deficits Secondary To: R humerus fx Patient to receive OT 5x/wk for 60-120 Therex min/day Self Care Management Group Therapy UE/LE ADL's with Assist Yes: Malorie ADL Transfers with Assist Yes: Breanna Toileting: Transfers,Clothing Management Yes: Breanna ,Hygeine w/Assist Light Kitchen/Laundry w/Assist No Progression Toward Outcome/Goals Progressing Outcome/Goals Met Pt completing more of the toileting tasks without assist . Stand pivot transfers to the left are very consistent . Pt still limited in ambulation and the ability to stand fully upright for longer periods of time d/t BLE weakness and back pain. Coping/Psych-Improve/Maintain Start: 08/16/17 14:21 Freq: DAILY Status: Active Target: Protocol: Activity Type Activity Date Activity User E-Sign Co-Sign Detail Recorded Client Recorded Date Recorded By Document 08/27/17 00:18 [id number] 08/27/17 00:18 [id number] 08/27/17 00:18 PMRU Outcome: Coping/Psychosocial Coping Outcome/Goals Verbalization of Acceptance of Rehab Admit Verbalization of Sense of Control Over Health Status Utilization of Appropriate Problem Solving Techniques Willingness to Participate in Treatment Plan and Basic Needs Utilization of Available Support Systems Absence of Destructive Behavior to Self/Others Psychosocial Outcome/Goals Cooperate/ Participate in Plan Progression Toward Outcome/Goals - Progressing Coping Progression Toward Outcome/Goals - Progressing Psychosocial DVT Prophylaxis- Improve/Maintain Start: 08/16/17 14:21 Freq: DAILY Status: Active Target: Protocol: Activity Type Activity Date Activity User E-Sign Co-Sign Detail Recorded Client Recorded Date Recorded By Document 08/27/17 00:18 [id number] 08/27/17 00:18 [id number] 08/27/17 00:18 PMRU Outcome: DVT Prophylaxis Outcome/Goals Remains Free of DVT Complies with DVT Prophylaxis /Treatment Progression Toward Outcome/Goals Progressing Discharge Planning - Improve/Maintain Start: 08/16/17 14:21 Freq: DAILY Status: Active Target: Protocol: Activity Type Activity Date Activity User E-Sign Co-Sign Detail Recorded Client Recorded Date Recorded By Document 08/27/17 00:19 [id number] 08/27/17 00:19 [id number] 08/27/17 00:19 PMRU Outcome: Discharge Planning Update Patient Family No Outcome/Goals Demonstrates Understanding of Discharge Plan Progression Toward Outcome/Goals Progressing Education-Improve/Maintain Start: 08/16/17 14:21 Freq: DAILY Status: Active Target: Protocol: Activity Type Activity Date Activity User E-Sign Co-Sign Detail Recorded Client Recorded Date Recorded By Document 08/27/17 00:18 [id number] 08/27/17 00:18 [id number] 08/27/17 00:18 PMRU Outcome: Education Outcome/Goals Demonstrates Skills Encourage Questions Progression Toward Outcome/Goals Progressing /GI-Improve/Maintain Start: 08/16/17 14:21 Freq: DAILY Status: Active Target: Protocol: Activity Type Activity Date Activity User E-Sign Co-Sign Detail Recorded Client Recorded Date Recorded By Document 08/27/17 00:18 [id number] 08/27/17 00:18 [id number] 08/27/17 00:18 PMRU Outcome: Genitourinary/ Gastrointestinal Genitourinary- Outcome/Goals Remain Free of Hospital- Acquired UTI Gastrointestinal-Outcome/Goals Maintain/ Achieve Bowel Regularity in Accordance with Pt's Baseline Remain Free of Emesis Prevent Constipation Laxatives as Ordered Progression Toward Outcome/Goals - Progressing Progression Toward Outcome/Goals - GI Progressing Medication Administration Start: 08/16/17 14:21 Freq: DAILY Status: Active Target: Protocol: Activity Type Activity Date Activity User E-Sign Co-Sign Detail Recorded Client Recorded Date Recorded By Document 08/27/17 00:18 [id number] 08/27/17 00:18 [id number] 08/27/17 00:18 PMRU Outcome: Medication Administration Assess Patient Knowledge/Teach Med Yes Education for all Meds Outcome/Goals Patient Independent with Medication Administration at Home Progression Towards Outcome/Goals Progressing Is Patient Going Home on Lovenox? No Mobility- Improve/Maintain Start: 08/17/17 16:50 Freq: DAILY Status: Active Target: Protocol: Activity Type Activity Date Activity User E-Sign Co-Sign Detail Recorded Client Recorded Date Recorded By Document 08/26/17 12:20 [id number] 08/26/17 12:20 [id number] 08/26/17 12:20 PMRU Outcome: Mobility Physical Therapy Evaluation and Yes Treatment Activity OOB with Assistance Yes NWB Yes: RUE - arm in sling aat Device Yes Assistance Yes Patient to be seen 5x/wk for 60-120 min/ Therex day for: Mobility Training Gait Training W/C Mobility Balance Other Outcome/Goals Maintain/ Achieve Baseline Mobility Status Improve Mobility Status Demonstrates Proper Use of Assistive Devices Free from Complications of Immobility Progression Toward Outcome/Goals Progressing Bed Mobility Yes: independent Transfers Yes: independent with vivek- walker/rail Gait x ft Yes: independent with vivek- walker 50' W/C Mobility x ft Yes: independent with BLE to 150 + feet Pain/Comfort- Improve/Maintain Start: 08/16/17 14:21 Freq: DAILY Status: Active Target: Protocol: Activity Type Activity Date Activity User E-Sign Co-Sign Detail Recorded Client Recorded Date Recorded By Document 08/27/17 00:18 [id number] 08/27/17 00:18 [id number] 08/27/17 00:18 PMRU Outcome: Pain/Comfort Outcome/Goals Demonstrates Knowledge and Use of Available Comfort Measures Achieves Acceptable Comfort/Pain Level as Determined by Patient/Condit Maintain Comfort Level Allowing Patient to Fully Participate in Rehab Progression Toward Outcome/Goals Progressing Outcome/Goals Met Comment pt denies pain at this time Safety- Improve/Maintain Start: 08/16/17 14:21 Freq: DAILY Status: Active Target: Protocol: Activity Type Activity Date Activity User E-Sign Co-Sign Detail Recorded Client Recorded Date Recorded By Document 08/27/17 00:18 [id number] 08/27/17 00:18 [id number] 08/27/17 00:18 PMRU Outcome: Safety Outcome/Goals Remain Free of Injury or Harm Prevent Falls/ Injury Progression Toward Outcome/Goals Progressing Medicine Note: Length of Stay: 7 days Anticipated Discharge Destination: Home Tentative Discharge Date: 09/03/17 Discharged to: Home
--- NOTE | 2017-08-27 17:31 | PN ---
Progress Note Date of Service: 08/27/17 Note: TAWANNA EDMONDSON was visited. Therapy notes read and reviewed. She was discussed in interdisiciplinary team rounds. Current Medications: Active Medications Generic Name Dose Route Start Last Admin Trade Name Freq PRN Reason Stop Dose Admin Acetaminophen 650 mg 08/16/17 13:49 Tylenol Tab* PO Q6H PRN FEVER/PAIN Hydrocodone Bitart/Acetaminophen 2 tab 08/16/17 14:09 08/25/17 21:25 Lisle 5-325 Tab* PO 2 tab Q4H PRN Administration PAIN - SEVERE Hydrocodone Bitart/Acetaminophen 1 tab 08/16/17 14:25 08/27/17 13:12 [place] 5-325 Tab* PO 1 tab Q4H PRN Administration PAIN - MODERATE TO SEVERE Alprazolam 0.25 mg 08/16/17 14:09 08/26/17 19:05 Xanax Tab* PO 0.25 mg Q8H PRN Administration ANXIETY Alprazolam 0.5 mg 08/21/17 20:27 08/27/17 07:45 Xanax Tab* PO 0.5 mg Q8H PRN Administration ANXIETY - SEVERE Atorvastatin Calcium 40 mg 08/16/17 21:00 08/26/17 20:00 Lipitor* PO 40 mg 2100 BEULAH Administration Bisacodyl 10 mg 08/16/17 13:49 Dulcolax Supp* [place] DAILY PRN CONSTIPATION Bupropion HCl 150 mg 08/17/17 09:00 08/27/17 08:52 Wellbutrin Xl * PO 150 mg DAILY BEULAH Administration Protocol Cetirizine HCl 10 mg 08/17/17 09:00 08/27/17 08:52 Zyrtec* PO 10 mg DAILY BEULAH Administration Cholecalciferol 4,000 units 08/17/17 21:00 08/26/17 20:01 Vitamin D Tab* PO 4,000 units 2100 BEULAH Administration Docusate Sodium 100 mg 08/16/17 21:00 08/27/17 08:52 Colace Cap* PO Not Given BID BEULAH Enoxaparin Sodium 40 mg 08/17/17 09:00 08/27/17 08:52 Lovenox(*) SUBCUT 40 mg Q24H BEULAH Administration Fentanyl 50 mcg 08/16/17 14:00 08/25/17 14:27 Duragesic Patch 50 Mcg/Hr* TRANSDERM 50 mcg Q72H [facility] Administration Fluoxetine HCl 40 mg 08/17/17 09:00 08/27/17 08:52 Prozac Cap* PO 40 mg DAILY BEULAH Administration Levothyroxine Sodium 100 mcg 08/19/17 06:00 08/26/17 05:39 Synthroid Tab* PO 100 mcg MoWeFr@0600 BEULAH Administration Levothyroxine Sodium 75 mcg 08/17/17 06:00 08/27/17 05:20 Synthroid Tab* PO 75 mcg SuTuThSa@0600 [facility] Administration Magnesium Hydroxide 30 ml 08/16/17 13:49 Milk Of Magnesia Liq* PO Q6H PRN CONSTIPATION Multi-Ingredient Mouthwash/Gargle 5 ml 08/16/17 20:47 08/22/17 17:20 Magic Mouth Was-Amadou/Maal/Lido* SWISH SPIT 5 ml Q4H PRN Administration Mouth Soreness Ondansetron HCl 4 mg 08/16/17 14:05 08/23/17 09:28 Zofran Odt Tab* PO 4 mg Q6H PRN Administration NAUSEA Pharmacy Profile Note 1 note 08/16/17 19:00 08/27/17 07:08 Fentanyl Patch Check Q Shift N/A 1 note 0700,1900 [facility] Administration Prochlorperazine 10 mg 08/16/17 14:25 Compazine Tab* PO Q8HR PRN NAUSEA Senna 2 tab 08/16/17 21:00 08/26/17 19:06 Senokot Tab* PO Not Given BEDTIME [facility] Vital Signs: Vital Signs Temp Pulse Resp BP Pulse Ox 98.1 F 91 18 102/59 96 08/27/17 15:48 08/27/17 15:48 08/27/17 16:43 08/27/17 15:48 08/27/17 15:48 Exam: LUNGS: Clear HEART: S1, S2 ABDOMEN: Soft EXTREMITIES: Right arm in splint. Ecchymotic areas on arm. Right hand less swollen. Pulses intact Assessment/Plan: 1. Right Humerus Fracture: Brace AAT. NWB RUE. PT/OT 2. 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 PT/OT 3. Stage IV Lung Cancer: Onc Follow up regarding chemo 4. Anxiety: Xanax. May have 0.5 mg if needed 5. Depression: Wellbutrin/Prozac. Better today 6. Analgesia: Duragesic/[place] 7. DVT Prophylaxis: Lovenox 8. Mucositis: Magic Mouthwash 9. Hypothroidism: Synthroid 10. Hand swelling: discussed with OT-Isotoner Glove. Will try to get a sleeve as well. 11. Anorexia: Asked dietary to see. Seems better 08/26/17 16:14
[2017-08-27] MEDS: Atorvastatin* 40 MG TAB PO SCH (21:51)
[2017-08-27] MEDS: Cholecalciferol TAB* 1000 UNITS PO SCH (21:51)
[2017-08-27] MEDS: Senna TAB PO SCH (21:53)
[2017-08-28] MEDS: Levothyroxine TAB* 100 MCG TAB PO SCH (05:18)
[2017-08-28] MEDS: fentaNYL Patch Check Q Shift 1 NOTE SCH ×3 (07:09→22:47)
[2017-08-28] MEDS: BuPROPion XL* 150 MG TAB.XL PO SCH (09:02)
[2017-08-28] MEDS: Cetirizine* 10 MG TAB PO SCH (09:02)
[2017-08-28] MEDS: HYDROcodone/ACETAMIN 5-325 MG* 1 TAB PO PRN ×3 (09:03→19:46)
[2017-08-28] MEDS: Enoxaparin(*) 40 MG/0.4 ML SYR SUBCUT SCH (09:03)
[2017-08-28] MEDS: ALPRAZolam TAB* 0.5 MG PO PRN ×2 (09:03→19:46)
[2017-08-28] MEDS: FLUoxetine CAP* 20 MG PO SCH (09:03)
[2017-08-28] MEDS: Docusate CAP* 100 MG PO SCH ×2 (09:04→19:47)
[2017-08-28] MEDS: fentaNYL PATCH 50 MCG/HR TRANSDERM SCH (14:51)
--- NOTE | 2017-08-28 17:53 | RAD ---
Indication: Distal humerus fracture with increasing pain without new injury. Comparison: No relevant prior exams available on the [facility] PACS for comparison. Technique: AP and lateral views RIGHT humerus. Report: Spiral fracture at the distal diaphysis of the humerus with up to one bone width anterior medial displacement and mild foreshortening. No callus formation or bridging bone evident to confirm healing response. Surrounding soft tissue swelling. Bone density appears decreased throughout.
--- NOTE | 2017-08-28 19:13 | PN ---
Progress Note Date of Service: 08/28/17 Note: TAWANNA EDMONDSON was visited. Therapy notes read and reviewed. Lillie was complaining of a lot of pain in her right arm, especially when she tries to transfer. I ordered an x-ray showing the distal humeral fracture, with some angulation and displacement. Unfortunately, we do not have the films from [facility]. Will try to get, but by the report, sounds similar. Current Medications: Active Medications Generic Name Dose Route Start Last Admin Trade Name Freq PRN Reason Stop Dose Admin Acetaminophen 650 mg 08/16/17 13:49 Tylenol Tab* PO Q6H PRN FEVER/PAIN Hydrocodone Bitart/Acetaminophen 2 tab 08/16/17 14:09 08/28/17 13:00 Gibson 5-325 Tab* PO 2 tab Q4H PRN Administration PAIN - SEVERE Hydrocodone Bitart/Acetaminophen 1 tab 08/16/17 14:25 08/28/17 09:03 Gibson 5-325 Tab* PO 1 tab Q4H PRN Administration PAIN - MODERATE TO SEVERE Alprazolam 0.25 mg 08/16/17 14:09 08/26/17 19:05 Xanax Tab* PO 0.25 mg Q8H PRN Administration ANXIETY Alprazolam 0.5 mg 08/21/17 20:27 08/28/17 09:03 Xanax Tab* PO 0.5 mg Q8H PRN Administration ANXIETY - SEVERE Atorvastatin Calcium 40 mg 08/16/17 21:00 08/27/17 21:51 Lipitor* PO 40 mg 2100 BEULAH Administration Bisacodyl 10 mg 08/16/17 13:49 Dulcolax Supp* [place] DAILY PRN CONSTIPATION Bupropion HCl 150 mg 08/17/17 09:00 08/28/17 09:02 Wellbutrin Xl * PO 150 mg DAILY BEULAH Administration Protocol Cetirizine HCl 10 mg 08/17/17 09:00 08/28/17 09:02 Zyrtec* PO 10 mg DAILY BEULAH Administration Cholecalciferol 4,000 units 08/17/17 21:00 08/27/17 21:51 Vitamin D Tab* PO 4,000 units 2100 BEULAH Administration Docusate Sodium 100 mg 08/16/17 21:00 08/28/17 09:04 Colace Cap* PO Not Given BID BEULAH Enoxaparin Sodium 40 mg 08/17/17 09:00 08/28/17 09:03 Lovenox(*) SUBCUT 40 mg Q24H [facility] Administration Fentanyl 50 mcg 08/16/17 14:00 08/28/17 14:51 Duragesic Patch 50 Mcg/Hr* TRANSDERM 50 mcg Q72H [facility] Administration Fluoxetine HCl 40 mg 08/17/17 09:00 08/28/17 09:03 Prozac Cap* PO 40 mg DAILY [facility] Administration Levothyroxine Sodium 100 mcg 08/19/17 06:00 08/28/17 05:18 Synthroid Tab* PO 100 mcg MoWeFr@0600 [facility] Administration Levothyroxine Sodium 75 mcg 08/17/17 06:00 08/27/17 05:20 Synthroid Tab* PO 75 mcg SuTuThSa@0600 [facility] Administration Magnesium Hydroxide 30 ml 08/16/17 13:49 Milk Of Magnesia Liq* PO Q6H PRN CONSTIPATION Multi-Ingredient Mouthwash/Gargle 5 ml 08/16/17 20:47 08/22/17 17:20 Magic Mouth Was-Amadou/Maal/Lido* SWISH SPIT 5 ml Q4H PRN Administration Mouth Soreness Ondansetron HCl 4 mg 08/16/17 14:05 08/23/17 09:28 Zofran Odt Tab* PO 4 mg Q6H PRN Administration NAUSEA Pharmacy Profile Note 1 note 08/16/17 19:00 08/28/17 14:54 Fentanyl Patch Check Q Shift N/A 1 note 0700,1900 [facility] Administration Prochlorperazine 10 mg 08/16/17 14:25 Compazine Tab* PO Q8HR PRN NAUSEA Senna 2 tab 08/16/17 21:00 08/27/17 21:53 Senokot Tab* PO Not Given BEDTIME [facility] Vital Signs: Vital Signs Temp Pulse Resp BP Pulse Ox 97.7 F 91 16 101/58 96 08/28/17 15:35 08/28/17 15:35 08/28/17 15:35 08/28/17 15:35 08/28/17 15:35 Exam: LUNGS: Clear HEART: S1, S2 ABDOMEN: Soft EXTREMITIES: Right arm in splint. Ecchymotic areas on arm. Right hand less swollen. Pulses intact Assessment/Plan: 1. Right Humerus Fracture: Brace AAT. MALU SMILEY. PT/OT 2. 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 PT/OT 3. Stage IV Lung Cancer: Onc Follow up regarding chemo 4. Anxiety: Xanax. May have 0.5 mg if needed 5. Depression: Wellbutrin/Prozac. Better today 6. Analgesia: Duragesic/Gibson 7. DVT Prophylaxis: Lovenox 8. Mucositis: Magic Mouthwash 9. Hypothroidism: Synthroid 10. Hand swelling: discussed with OT-Isotoner Glove. Will try to get a sleeve as well. 11. Anorexia: Asked dietary to see. Seems better 08/28/17 19:14
[2017-08-28] MEDS: Cholecalciferol TAB* 1000 UNITS PO SCH (19:46)
[2017-08-28] MEDS: Atorvastatin* 40 MG TAB PO SCH (19:47)
[2017-08-28] MEDS: Senna TAB PO SCH (19:47)
[2017-08-29] MEDS: Levothyroxine TAB* 75 MCG TAB PO SCH (05:14)
[2017-08-29] MEDS: fentaNYL Patch Check Q Shift 1 NOTE SCH ×2 (07:04→23:28)
[2017-08-29] MEDS: Enoxaparin(*) 40 MG/0.4 ML SYR SUBCUT SCH (08:32)
[2017-08-29] MEDS: FLUoxetine CAP* 20 MG PO SCH (08:32)
[2017-08-29] MEDS: Cetirizine* 10 MG TAB PO SCH (08:32)
[2017-08-29] MEDS: ALPRAZolam TAB* 0.5 MG PO PRN ×2 (08:32→20:45)
[2017-08-29] MEDS: BuPROPion XL* 150 MG TAB.XL PO SCH (08:32)
[2017-08-29] MEDS: Docusate CAP* 100 MG PO SCH ×2 (08:33→19:07)
[2017-08-29] MEDS: HYDROcodone/ACETAMIN 5-325 MG* 1 TAB PO PRN ×3 (10:07→20:46)
[2017-08-29] MEDS: Senna TAB PO SCH (19:07)
[2017-08-29] MEDS ORDERED: predniSONE TAB* 50 MG PO ONE (20:00)
[2017-08-29] MEDS: Atorvastatin* 40 MG TAB PO SCH (20:42)
[2017-08-29] MEDS: Cholecalciferol TAB* 1000 UNITS PO SCH (20:42)
--- NOTE | 2017-08-29 21:46 | PN ---
Progress Note Date of Service: 08/29/17 Note: TAWANNA EDMONDSON was visited. Therapy notes read and reviewed. She has pain in the elbow, below where her fracture is. Pain could be from blood pooling or from referred pain. Neurovascularly intact. She does not want to go back to Dr. Cabral for follow up. Will try to arrange local orthopedic followup. She may be able to see a [facility] ortho in [place]. Unfortunately the office was closed today when I tried to make referral. Current Medications: Active Medications Generic Name Dose Route Start Last Admin Trade Name Freq PRN Reason Stop Dose Admin Acetaminophen 650 mg 08/16/17 13:49 Tylenol Tab* PO Q6H PRN FEVER/PAIN Hydrocodone Bitart/Acetaminophen 2 tab 08/16/17 14:09 08/29/17 10:07 [place] 5-325 Tab* PO 2 tab Q4H PRN Administration PAIN - SEVERE Hydrocodone Bitart/Acetaminophen 1 tab 08/16/17 14:25 08/29/17 20:46 [place] 5-325 Tab* PO 1 tab Q4H PRN Administration PAIN - MODERATE TO SEVERE Alprazolam 0.25 mg 08/16/17 14:09 08/26/17 19:05 Xanax Tab* PO 0.25 mg Q8H PRN Administration ANXIETY Alprazolam 0.5 mg 08/21/17 20:27 08/29/17 20:45 Xanax Tab* PO 0.5 mg Q8H PRN Administration ANXIETY - SEVERE Atorvastatin Calcium 40 mg 08/16/17 21:00 08/29/17 20:42 Lipitor* PO 40 mg 2100 BEULAH Administration Bisacodyl 10 mg 08/16/17 13:49 Dulcolax Supp* [place] DAILY PRN CONSTIPATION Bupropion HCl 150 mg 08/17/17 09:00 08/29/17 08:32 Wellbutrin Xl * PO 150 mg DAILY BEULAH Administration Protocol Cetirizine HCl 10 mg 08/17/17 09:00 08/29/17 08:32 Zyrtec* PO 10 mg DAILY BEULAH Administration Cholecalciferol 4,000 units 08/17/17 21:00 08/29/17 20:42 Vitamin D Tab* PO 4,000 units 2100 BEULAH Administration Diphenhydramine HCl 50 mg 08/30/17 08:00 Benadryl Po* PO 08/30/17 08:01 ONCE ONE Docusate Sodium 100 mg 08/16/17 21:00 08/29/17 19:07 Colace Cap* PO Not Given BID [facility] Enoxaparin Sodium 40 mg 08/17/17 09:00 08/29/17 08:32 Lovenox(*) SUBCUT 40 mg Q24H BEULAH Administration Fentanyl 50 mcg 08/16/17 14:00 08/28/17 14:51 Duragesic Patch 50 Mcg/Hr* TRANSDERM 50 mcg Q72H [facility] Administration Fluoxetine HCl 40 mg 08/17/17 09:00 08/29/17 08:32 Prozac Cap* PO 40 mg DAILY [facility] Administration Levothyroxine Sodium 100 mcg 08/19/17 06:00 08/28/17 05:18 Synthroid Tab* PO 100 mcg MoWeFr@0600 [facility] Administration Levothyroxine Sodium 75 mcg 08/17/17 06:00 08/29/17 05:14 Synthroid Tab* PO 75 mcg SuTuThSa@0600 [facility] Administration Magnesium Hydroxide 30 ml 08/16/17 13:49 Milk Of Magnesia Liq* PO Q6H PRN CONSTIPATION Multi-Ingredient Mouthwash/Gargle 5 ml 08/16/17 20:47 08/22/17 17:20 Magic Mouth Was-Amadou/Maal/Lido* SWISH SPIT 5 ml Q4H PRN Administration Mouth Soreness Ondansetron HCl 4 mg 08/16/17 14:05 08/23/17 09:28 Zofran Odt Tab* PO 4 mg Q6H PRN Administration NAUSEA Pharmacy Profile Note 1 note 08/16/17 19:00 08/29/17 07:04 Fentanyl Patch Check Q Shift N/A 1 note 0700,1900 [facility] Administration Prednisone 50 mg 08/30/17 02:00 Deltasone Tab* PO 08/30/17 02:01 ONCE ONE Prednisone 50 mg 08/30/17 08:00 Deltasone Tab* PO 08/30/17 08:01 ONCE ONE Prochlorperazine 10 mg 08/16/17 14:25 Compazine Tab* PO Q8HR PRN NAUSEA Senna 2 tab 08/16/17 21:00 08/29/17 19:07 Senokot Tab* PO Not Given BEDTIME BEULAH Vital Signs: Vital Signs Temp Pulse Resp BP Pulse Ox 98.7 F 89 18 92/58 91 08/29/17 05:17 08/29/17 16:48 08/29/17 20:52 08/29/17 16:48 08/29/17 17:36 Exam: LUNGS: Clear HEART: S1, S2 ABDOMEN: Soft EXTREMITIES: Right arm in splint. Ecchymotic areas on arm. Right hand less swollen. Pulses intact Assessment/Plan: 1. Right Humerus Fracture: Brace AAT. NWB RUE. PT/OT. Will try to arrange local orthopedic followup 2. 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 PT/OT 3. Stage IV Lung Cancer: Onc Follow up regarding chemo 4. Anxiety: Xanax. May have 0.5 mg if needed 5. Depression: Wellbutrin/Prozac. Better today 6. Analgesia: Duragesic/T[place] 7. DVT Prophylaxis: Lovenox 8. Mucositis: Magic Mouthwash 9. Hypothroidism: Synthroid 10. Hand swelling: discussed with OT-Isotonesafia Martínez. Will try to get a sleeve as well. 11. Anorexia: Asked dietary to see. Appetite seems better 08/29/17 21:46
[2017-08-30] MEDS ORDERED: predniSONE TAB* 50 MG PO ONE ×2 (02:00→08:00)
[2017-08-30] MEDS: HYDROcodone/ACETAMIN 5-325 MG* 1 TAB PO PRN ×3 (02:32→13:33)
[2017-08-30] MEDS: Levothyroxine TAB* 100 MCG TAB PO SCH (05:32)
[2017-08-30 06:17] VITALS: BP 118/68
[2017-08-30] MEDS: fentaNYL Patch Check Q Shift 1 NOTE SCH (07:01)
[2017-08-30] MEDS: BuPROPion XL* 150 MG TAB.XL PO SCH (07:36)
[2017-08-30] MEDS: FLUoxetine CAP* 20 MG PO SCH (07:36)
[2017-08-30] MEDS: Docusate CAP* 100 MG PO SCH (07:37)
[2017-08-30] MEDS: Enoxaparin(*) 40 MG/0.4 ML SYR SUBCUT SCH (07:37)
[2017-08-30] MEDS: Cetirizine* 10 MG TAB PO SCH (07:37)
[2017-08-30] MEDS: ALPRAZolam TAB* 0.5 MG PO PRN (07:39)
[2017-08-30] MEDS ORDERED: Iohexol 300* (CONTRAST) 10 ML SDV IV ONE (07:52)
[2017-08-30] MEDS ORDERED: diPHENhydraMINE PO* 50 MG PO ONE (08:00)
--- NOTE | 2017-08-30 11:26 | RAD ---
HISTORY: Lung cancer COMPARISONS: May 27, 2012 TECHNIQUE: Multiple contiguous axial CT scans were obtained of the chest, abdomen, and pelvis after the administration of intravenous contrast. Coronal and sagittal multiplanar reformations are submitted for review.. Oral contrast was administered. Delayed images were obtained through the abdomen and pelvis. FINDINGS: CHEST NECK AND THYROID: The lower neck and thyroid are unremarkable. CHEST WALL: The right-sided chest port is noted. HEART AND PERICARDIUM: The heart is unremarkable. AORTA AND PULMONARY VASCULATURE: The aorta and pulmonary vasculature are normal. MEDIASTINUM: There is no mediastinal lymphadenopathy by size criteria. MARNIE: There is no hilar lymphadenopathy by size criteria. AIRWAY AND ESOPHAGUS: The airway is unremarkable, without endobronchial filling defect. The esophagus is grossly normal. LUNG PARENCHYMA: There is linear atelectasis of the left lung base. PLEURA: There is stable loculated small left pleural effusion. BONES AND SOFT TISSUES: Mild degenerative changes are noted. There is diffuse osteopenia. There is stable lytic lesion of T11 ABDOMEN/PELVIS: LIVER: There are stable hepatic cysts. BILE DUCTS: There is no intrahepatic or extrahepatic biliary dilatation. GALLBLADDER: The gallbladder is normal, without pericholecystic inflammatory change. PANCREAS: The pancreas is normal, without mass or ductal dilatation. SPLEEN: Normal in size and appearance. UPPER GI TRACT: Evaluation of the gastrointestinal tract is limited by incomplete gastric distention. The upper GI tract is unremarkable. SMALL BOWEL & MESENTERY: The small bowel is normal in contour, course, and caliber. There is no obstruction or dilatation. COLON: The colon is normal in contour, course, caliber. There is no pericolonic inflammatory change. ADRENALS: Normal bilaterally. KIDNEYS: The kidneys are normal in shape, size, contour, and axis. There is no hydronephrosis or nephrolithiasis. BLADDER: There is mild cervical frontal bladder wall thickening. There is a small bladder calculus on axial image 68 measuring 0.2 cm. There is focal bladder wall thickening at the level of the left trigone also seen on axial image 68. PELVIC ORGANS: The uterus and adnexa are grossly normal for technique. AORTA: Atherosclerosis IVC: Unremarkable LYMPH NODES: There is no lymphadenopathy by size criteria. ABDOMINAL WALL: There is no evidence for abdominal wall hernia. BONES AND SOFT TISSUES: Again noted are multiple sclerotic lesions of the lumbar spine and sacrum with loss of vertebral body height at L2-L3 and L4. The vertebral body compression deformity of L4 has progressed from the previous examination. There is no osseous retropulsion. OTHER: None IMPRESSION: 1. STABLE SMALL LEFT LOCULATED PLEURAL EFFUSION. 2. STABLE MULTIFOCAL OSSEOUS METASTATIC DISEASE. 3. THERE IS COMPRESSION DEFORMITY OF L4 THAT HAS SLIGHTLY PROGRESSED FROM THE PREVIOUS EXAMINATION, WITHOUT OSSEOUS RETROPULSION. 4. AGAIN NOTED IS FOCAL BLADDER WALL THICKENING ON THE LEFT. THE DIFFERENTIAL INCLUDES BLADDER WALL NEOPLASM. 5. SMALL BLADDER CALCULUS. 6. ATHEROSCLEROSIS.
--- NOTE | 2017-08-30 11:58 | PN ---
Progress Note Date of Service: 08/30/17 Note: TAWANNA EDMONDSON was visited. Nursing and therapy notes read and reviewed. She has an appt to see Dr. Natarajan on Saturday and is happy with that. No chest pain , shortness of breath or abdominal pain. She is eager to go home. She had CT this morning and will f/u with Dr. Vo. Current Medications: Active Medications Generic Name Dose Route Start Last Admin Trade Name Freq PRN Reason Stop Dose Admin Acetaminophen 650 mg 08/16/17 13:49 Tylenol Tab* PO Q6H PRN FEVER/PAIN Hydrocodone Bitart/Acetaminophen 2 tab 08/16/17 14:09 08/30/17 07:39 Buhl 5-325 Tab* PO 2 tab Q4H PRN Administration PAIN - SEVERE Hydrocodone Bitart/Acetaminophen 1 tab 08/16/17 14:25 08/30/17 02:32 Buhl 5-325 Tab* PO 1 tab Q4H PRN Administration PAIN - MODERATE TO SEVERE Alprazolam 0.25 mg 08/16/17 14:09 08/26/17 19:05 Xanax Tab* PO 0.25 mg Q8H PRN Administration ANXIETY Alprazolam 0.5 mg 08/21/17 20:27 08/30/17 07:39 Xanax Tab* PO 0.5 mg Q8H PRN Administration ANXIETY - SEVERE Atorvastatin Calcium 40 mg 08/16/17 21:00 08/29/17 20:42 Lipitor* PO 40 mg 2100 BEULAH Administration Bisacodyl 10 mg 08/16/17 13:49 Dulcolax Supp* OK DAILY PRN CONSTIPATION Bupropion HCl 150 mg 08/17/17 09:00 08/30/17 07:36 Wellbutrin Xl * PO 150 mg DAILY BEULAH Administration Protocol Cetirizine HCl 10 mg 08/17/17 09:00 08/30/17 07:37 Zyrtec* PO 10 mg DAILY BEULAH Administration Cholecalciferol 4,000 units 08/17/17 21:00 08/29/17 20:42 Vitamin D Tab* PO 4,000 units 2100 BEULAH Administration Docusate Sodium 100 mg 08/16/17 21:00 08/30/17 07:37 Colace Cap* PO Not Given BID BEULAH Enoxaparin Sodium 40 mg 08/17/17 09:00 04/13/18 07:37 Lovenox(*) SUBCUT 40 mg Q24H BEULAH Administration Fentanyl 50 mcg 08/16/17 14:00 08/28/17 14:51 Duragesic Patch 50 Mcg/Hr* TRANSDERM 50 mcg Q72H BEULAH Administration Fluoxetine HCl 40 mg 08/17/17 09:00 08/30/17 07:36 Prozac Cap* PO 40 mg DAILY BEULAH Administration Levothyroxine Sodium 100 mcg 08/19/17 06:00 08/30/17 05:32 Synthroid Tab* PO 100 mcg MoWeFr@0600 BEULAH Administration Levothyroxine Sodium 75 mcg 08/17/17 06:00 08/29/17 05:14 Synthroid Tab* PO 75 mcg [id number]@0600 [facility] Administration Magnesium Hydroxide 30 ml 08/16/17 13:49 Milk Of Magnesia Liq* PO Q6H PRN CONSTIPATION Multi-Ingredient Mouthwash/Gargle 5 ml 08/16/17 20:47 08/22/17 17:20 Magic Mouth Was-Amadou/Maal/Lido* SWISH SPIT 5 ml Q4H PRN Administration Mouth Soreness Ondansetron HCl 4 mg 08/16/17 14:05 08/23/17 09:28 Zofran Odt Tab* PO 4 mg Q6H PRN Administration NAUSEA Pharmacy Profile Note 1 note 08/16/17 19:00 08/30/17 07:01 Fentanyl Patch Check Q Shift N/A 1 note 0700,1900 [facility] Administration Prochlorperazine 10 mg 08/16/17 14:25 Compazine Tab* PO Q8HR PRN NAUSEA Senna 2 tab 08/16/17 21:00 08/29/17 19:07 Senokot Tab* PO Not Given BEDTIME [facility] Vital Signs: Vital Signs Temp Pulse Resp BP Pulse Ox 98.3 F 94 16 118/68 96 08/30/17 06:13 08/30/17 06:13 08/30/17 09:42 08/30/17 06:13 08/30/17 08:00 Exam: GEN: no acute distress. alert and appropriate. LUNGS: Clear to auscultation bilaterally. HEART: regular rate and rhythm ABDOMEN: + bowel sounds, soft, non-tender, non-distended EXTREMITIES: Right arm in splint. Minimal hand edema. Pulses intact IMAGING: CT chest/abdomen/pelvis on 08/30/17 showed stable small loculated pleural effusion; stable multifocal osseous metastatic disease; compression deformity of L4 that has slightly progressed from the previous examination without osseous retropulsion; again noted is focal bladder wall thickening on the left (differential includes bladder wall neoplasm); small bladder calculus; and atherosclerosis. See report body for more details. Assessment/Plan: 67yo woman with right humerus fracture and LE weakness secondary to radiation therapy for lumbar spine mets. 1. Right Humerus Fracture: Brace AAT. MALU SMILEY. See Dr. Natarajan on 09/04. 2. 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 f/u with oncology. 3. Stage IV Lung Cancer: Onc Follow up regarding chemo 4. Anxiety: Xanax prn 5. Depression: Wellbutrin/Prozac. 6. Analgesia: Duragesic/Buhl. Using same amount as pre-admission. Prior prescriptions from Dr. Vo. She will call him if refills needed. 7. Mucositis: Magic Mouthwash as needed 8. Hypothroidism: Synthroid 9. Hand swelling: Isotoner Glove. 10. Advanced directives: full code. 11. Discharge home today with family support. 08/30/17 11:58
--- NOTE | 2017-08-30 20:32 | DS ---
Cc: Dr. Vo; Dr. Natarajan REHABILITATION DISCHARGE: DATE OF ADMISSION: 08/16/17 DATE OF DISCHARGE: 08/30/17 REASON FOR ADMISSION: Right humerus fracture with bilateral lower extremity weakness likely due to radiation for metastatic lung cancer. ONCOLOGIST: Dr. Vo. REFERRED TO: Dr. Natarajan. HISTORY OF PRESENT ILLNESS: For full details of acute hospitalization leading up to her admission, please see the note dictated by Dr. Henderson on 08/16/17. During her time on the PMRU, she has remained non-weightbearing to her right upper extremity and in the Arango brace as recommended by Dr. Cabral who saw her acutely at [facility] for her fracture. The patient has requested to see an orthopedist more locally and she has been referred to see Dr. Natarajan, who she will see next week on 09/04/17 for further orthopedic management of her right humerus fracture. Because of ongoing pain, she had an x -ray of her humerus on 08/28/17. This shows spiral fracture at the distal diaphysis of the humerus, with up to one bone width anteromedial displacement and mild foreshortening. There currently was no callus formation or bridging of bone evident to confirm a healing response. There was some surrounding soft- tissue swelling. Bone density appears decreased throughout. Regarding her metastatic lung cancer, Dr. Vo had ordered a CT of the chest, abdomen, and pelvis with contrast. This was done on the date of discharge. Results show a stable small left loculated pleural effusion with stable multifocal osseous metastatic disease. There is a compression deformity of L4 that slightly progressed from the previous examination without osseous retropulsion. Again noted was a focal bladder wall thickening on the left. Differential includes bladder wall neoplasm, small bladder calculus and atherosclerosis. She is to follow up with Dr. Vo next week regarding these results as well as whether she can resume chemotherapy. She has been on fentanyl patch and hydrocodone but using doses that she was already using at home. This has been prescribed in the past by Dr. Vo. She will call for any additional refills. She developed some mucositis, that was treated with Magic Mouthwash, which was helpful. She will continue using that as needed at home. She participated well with physical therapy and at the time of discharge, required supervision for bed mobility and transfers using a piedad-cane. She is able to ambulate 25 feet using the piedad-cane and supervision. She is able to ascend and descend 5 steps with supervision x1 or contact guard assist of one. She is independent with home exercise program and knows to maintain nonweightbearing to her right upper extremity. She also participated in occupational therapy at the time of discharge. She needs assistance to cut meat or open difficult containers so she can eat. She requires contact guard assistance to get in and out of shower with a seat and a removal from shower head. For dressing, she requires a maximum assistance for shirts and bras, she requires minimal assistance to pull up pants on the right side. For toileting and toilet transfers, she requires supervision on and off the toilet with piedad-cane and gait belt. Her will assist with all home management and cooking tasks. He came in for family training, is able to assist her as needed. For bathing, it is requested that he assist with her left arm, back and right hip. DISCHARGE CONDITION: Fair. DISCHARGE DISPOSITION: Home with family support. DISCHARGE MEDICATIONS: 1. Fentanyl patch 50 mcg q. 72 hours. 2. Hydrocodone 5/325 one to two q. 4 hours p.r.n. pain. 3. Prozac 40 mg daily. 4. Wellbutrin ER 150 mg daily. 5. Lipitor 40 mg daily. 6. Xanax 0.25 mg q. 6 hours p.r.n. 7. Synthroid 75 mcg q. Saturday, Saturday, , and Saturday and 100 mcg q. Saturday, Saturday and Saturday. 8. Compazine 10 mg q. 8 hours p.r.n. nausea. 9. Zofran 4 mg q. 6 hours p.r.n. nausea. 10. Claritin 10 mg daily. 11. Vitamin D 5000 units daily. 12. Magic Mouthwash 5 cc swish and spit q. 4 hours p.r.n. DISCHARGE DIAGNOSES: 1. Right humerus fracture. 2. Paraplegia. 3. Metastatic lung cancer, metastasis to lumbar spine. 4. Hypothyroidism. 5. Hyperlipidemia. 6. Depression. 7. Anxiety. 8. Mucositis. FOLLOWUP: 1. A referral has been sent to [facility] for nursing and ongoing therapies. 2. She is to follow up with Dr. Vo next week. 3. A referral has been sent and she will have an appointment with Dr. Natarajan on 09/04/17 at 1 p.m. [id number]/[facility] #: [id number] ROSALVA
== END 2017-08-30 14:10 | disposition home health service (06) | DRG 560 ==
LOC: PMRU 12:31
PROVIDERS: ADMIT Physical Medicine & Rehabilitation; ATTEND Physical Medicine & Rehabilitation
PROC: F07Z5ZZ Bed Mobility Treatment (ICD-10-PCS; principal; 2017-08-16)
PROC: F07Z9ZZ Gait Training/Functional Ambulation Treatment (ICD-10-PCS; 2017-08-16)
PROC: F07Z8ZZ Transfer Training Treatment (ICD-10-PCS; 2017-08-16)
PROC: F07Z4ZZ Wheelchair Mobility Treatment (ICD-10-PCS; 2017-08-16)
PROC: F08Z0ZZ Bathing/Showering Techniques Treatment (ICD-10-PCS; 2017-08-16)
PROC: F08Z1ZZ Dressing Techniques Treatment (ICD-10-PCS; 2017-08-16)
PROC: F08Z3ZZ Feeding/Eating Treatment (ICD-10-PCS; 2017-08-16)
DX: S42.301D Unspecified fracture of shaft of humerus, right arm, subsequent encounter for fracture with routine healing (principal); G82.20 Paraplegia, unspecified; C34.90 Malignant neoplasm of unspecified part of unspecified bronchus or lung; C79.51 Secondary malignant neoplasm of bone; W18.30XD Fall on same level, unspecified, subsequent encounter; E03.9 Hypothyroidism, unspecified; E78.5 Hyperlipidemia, unspecified; F32.9 Major depressive disorder, single episode, unspecified; F41.9 Anxiety disorder, unspecified; K12.30 Oral mucositis (ulcerative), unspecified; L65.8 Other specified nonscarring hair loss; F50.89 Other specified eating disorder; M79.89 Other specified soft tissue disorders; Z88.0 Allergy status to penicillin; Z88.1 Allergy status to other antibiotic agents; Z79.899 Other long term (current) drug therapy
CPT/HCPCS: 36415; 71260; 74177; 80053; 85025; 85027; 99232; A9270-GY; G0515-GO; J1650; J7512; Q0164; Q9967

== ENCOUNTER → 2017-11-29 11:07 | Day surgery (SDC) | payer MEDICARE ==
[~2017-11-29 11:07] MED LIST: Lidocaine 1% INJ* 10 MG/ML 30 ML SDV ONE
--- NOTE | 2017-11-29 14:18 | RAD ---
Indication: Postthoracentesis. Comparison: November 25, 2017 CT Technique: Upright AP 1255 hours Report: Radiographic resolution of previous RIGHT pleural effusion. Persistent small dependent LEFT pleural effusion with proportional atelectasis. Persistent mild alveolar consolidation at the LEFT midlung zone corresponding with the apical posterior segment of the LEFT upper lobe on recent CT. Negative for pneumothorax. Accessory azygos fissure at the medial RIGHT upper lung zone. Tip of RIGHT chest port at level of RIGHT atrium. Negative for cardiomegaly. Unremarkable central pulmonary vasculature. IMPRESSION: #. Gross resolution of RIGHT pleural effusion. Negative for pneumothorax. #. Persistent small dependent LEFT pleural effusion proportional basilar atelectasis. #. Persistent less specific airspace consolidation at the LEFT midlung zone.
--- NOTE | 2017-11-30 01:17 | CONS ---
CC: Dr. Justino Barreto; Dr. Vo * CONSULTATION REPORT: DATE OF CONSULT: 11/29/17 CHIEF COMPLAINT: Dyspnea. HISTORY OF PRESENT ILLNESS: Ms. Varela is a 67-year-old female who has had metastatic lung cancer. She had malignant left pleural effusion a few years ago , had thoracentesis at that time, ended up with a PleurX catheter, which subsequently resolved her recurrent effusion. She has been well until recently when she started to have increased dyspnea and has been found to have a right- sided pleural effusion. Dr. Vo asked me to evaluate her for thoracentesis. PHYSICAL EXAMINATION: On examination, she appears a little bit frail. She is slightly dyspneic, not dramatically so at rest. Breathing is easy and unlabored. Lung sounds are clear bilaterally. She does have decreased breath sounds on the right side, dullness to percussion at the right base may be a third of the way up. DISCUSSION: I discussed with her and her the nature of her pleural effusion and I think there is reasonable likelihood that she will have benefit from a right thoracentesis. She is in understanding and agreeable to this approach. PROCEDURE: Therefore, with the patient sitting at the bedside leaning over the bedside table, the right posterior chest was prepped with antiseptic and draped in a sterile fashion. Time-out was carried out to confirm laterality and patient identity. The area was anesthetized with 1% plain lidocaine and then approximately the 9th interspace is entered with a skinny needle, which confirms thin fluid. The thoracentesis catheter was advanced at this site and approximately 750 mL of clear yellow fluid is forthcoming. She tolerated this well. The catheter was removed. Bandage was placed. Samples are sent for cytology per Dr. Vo's request. Followup chest x-ray is obtained, which shows good aeration of the lung. The patient is discharged with an instruction sheet and we will be happy to see her back in the future should the need arise. [id number]/[facility] #: [id number] MTDD
== END | disposition home or self-care (01) ==
LOC: OR 11:07
PROVIDERS: ATTEND Surgery
DX: J90 Pleural effusion, not elsewhere classified (principal); Z85.118 Personal history of other malignant neoplasm of bronchus and lung
CPT/HCPCS: 32554; 71045; 88112; 88305; 88341; 88342

== ENCOUNTER 2017-12-19 14:17 | Day surgery (SDC) | payer MEDICARE ==
--- NOTE | 2017-12-19 16:21 | RAD ---
Indication: Placement of a Pleurx catheter. Single frontal view of the chest performed at 1552 hours was reviewed. Comparison is made with previous exam dated December 18, 2017. No mediastinal shift is noted. Interstitial edema is noted. Left pleural effusion is noted. The right costophrenic angle is clear. There is a pleural-based catheter noted in the right lung base. There may be a small right apical pneumothorax noted. IMPRESSION: PLEURAL-BASED CATHETER IN THE RIGHT LUNG BASE. THERE IS SUGGESTION OF A SMALL RIGHT-SIDED PNEUMOTHORAX.
--- NOTE | 2017-12-20 15:11 | OP ---
CC: Dr. Barreto; Dr. Vo * DATE OF OPERATION: 12/19/17 - [facility] DATE OF : 52 SURGEON: Justino Barreto MD [employer] MECHANIC: None. ANESTHESIOLOGIST: None. PRE-OP DIAGNOSIS: Malignant right pleural effusion. POST-OP DIAGNOSIS: Malignant right pleural effusion. OPERATIVE PROCEDURE: Placement of right PleurX catheter. INDICATIONS: The patient was brought to the outpatient procedure room. The procedure was explained to her and discussed with her. She understood the procedure and was agreeable to it. Her participated in this as well. So, she was agreeable to placement of a PleurX catheter. DESCRIPTION OF PROCEDURE: The patient was supine on the operating room table inclined towards her left to expose the right chest. This was then prepped with antiseptic and draped in a sterile fashion. Sterile gown, gloves, and drapes were utilized. Local anesthetic was administered approximately the region of the 8th interspace posterolaterally and a needle was inserted into the pleural space. Some pleural fluid was forthcoming. Guidewire was then passed. Dilator was used to dilate the tract. After tunneling the PleurX catheter, it was placed into the pleural space. This was connected to the low- wall suction canister, and 750 mL of clear yellow fluid was forthcoming. She tolerated this well. The tunnel was approximately 12 cm in length and the exit site was sutured with silk suture to secure the tube. The initial entry site was sutured with 3-0 Vicryl followed by a Band-Aid. The final Tegaderm dressing was placed after draining the chest. She tolerated this well and will continue to follow with Dr. Vo's office for management of the PleurX catheter , and I am happy to see her back any time should any questions or concerns arise. [id number]/[facility] #: [id number] MTDD
== END 2017-12-19 16:35 | disposition home or self-care (01) ==
LOC: OR 14:17
PROVIDERS: ATTEND Surgery
DX: J91.0 Malignant pleural effusion (principal); C34.32 Malignant neoplasm of lower lobe, left bronchus or lung; C79.51 Secondary malignant neoplasm of bone
CPT/HCPCS: 71045

== ENCOUNTER 2018-01-13 06:09 | Inpatient (IN) | payer MEDICARE ==
[~2018-01-13 06:09] MED LIST changes: +Buffered Lidocaine 0.9% SYRIN* 5 ML/SYR SYRINGE INTRADERM ONE; +Dexamethasone TAB* 4 MG PO ONE; +DiMENhydriNATE IV* 50 MG/ML VIAL IV PUSH PRN; +Famotidine IV* 10 MG/ML 2 ML (20 mg) IV ONE; -Lidocaine 1% INJ* 10 MG/ML 30 ML SDV ONE; +Morphine INJ* 2 MG/ML 1 ML SYRINGE (TWO MG - NEW SYRINGE VERSION) IV PRN; +Naloxone* 0.4 MG/ML 1 ML VIAL IV PRN; +Ondansetron INJ* 2 MG/ML VIAL ONE; +PROCHLORPERAZINE INJ 5 MG/ML 2 ML VIAL IV PRN; +Scopolamine 1.5 mg* PATCH TRANSDERM PRN; +fentaNYL* 50 MCG/ML 2 ML VIAL (100 MCG VIAL) IV PRN; +oxyCODONE/Acetamin 5/325 MG* TAB PO PRN
[2018-01-13] MEDS ORDERED: Famotidine IV* 10 MG/ML 2 ML (20 mg) ONE (06:19)
[2018-01-13] MEDS ORDERED: Clindamycin 900 MG IVPREMIX(* 900 MG/50 ML SDV IV ONE (06:20)
[2018-01-13] MEDS ORDERED: Ondansetron INJ* 2 MG/ML VIAL ONE (06:20)
[2018-01-13] MEDS ORDERED: Dexamethasone TAB* 4 MG ONE ×2 (06:20)
[2018-01-13] MEDS ORDERED: KETAMINE HCL* 50 MG/ML 10 ML VIAL ONE (07:01)
[2018-01-13] MEDS ORDERED: fentaNYL* 50 MCG/ML 2 ML VIAL (100 MCG VIAL) ONE (07:01)
[2018-01-13] MEDS ORDERED: Midazolam* 1 MG/ML 5 ML VIAL (5 MG) ONE (07:01)
[2018-01-13] MEDS ORDERED: Bupivacaine 0.25% W/EPI* 10 ML SDV ONE (07:22)
[2018-01-13] MEDS ORDERED: Vancomycin(*) 1,000 MG VIAL ONE (10:35)
[2018-01-13] MEDS ORDERED: Propofol* 10 MG/ML 20 ML BTL IV PUSH ONE (10:53)
[2018-01-13] MEDS ORDERED: Phenylephrine INJ* 10 MG/ML 1 ML VIAL (10 MG) ONE (10:54)
[2018-01-13] MEDS ORDERED: Lidocaine 2% PF * 5 ML VIAL ONE (10:54)
[2018-01-13] MEDS ORDERED: Norepinephrine VIAL* 1 MG/ML 4 ML VIAL ONE (10:54)
[2018-01-13] MEDS ORDERED: ROPIVACAINE 5 MG/ML 30 ML BTL (0.5%) ONE (10:54)
--- NOTE | 2018-01-13 11:16 | RAD ---
INDICATION: Right humerus nonunion repair. COMPARISON: Comparison is made with a prior x-ray study of the right humerus from December 24, 2017. TECHNIQUE: 16 seconds of intermittent fluoroscopic guidance were provided and 5 spot films of the right humerus were obtained in the operating room. FINDINGS: The films demonstrate placement of 2 surgical metallic plates spanning the fracture fragments transfixed with multiple screws. IMPRESSION: INTRAOPERATIVE CONTROL FILMS. CPT II Codes: G9500
[2018-01-13] MEDS ORDERED: Morphine INJ* 2 MG/ML 1 ML SYRINGE (TWO MG - NEW SYRINGE VERSION) IV PRN (11:39)
[2018-01-13] MEDS ORDERED: Magnesium Hydroxide LIQ* 30 ML UDC PO PRN (11:39)
[2018-01-13] MEDS ORDERED: diPHENhydraMINE PO* 25 MG PO PRN (11:39)
[2018-01-13] MEDS ORDERED: Acetaminophen TAB* 325 MG PO SCH (12:00)
--- NOTE | 2018-01-13 17:20 | PN ---
Progress Note - Progress Note Date of Service: 01/13/18 Note: Doing well. Sleepy tonight. VSS Weakly firing finger extensor, entire hand globally weak secondary to block in all nerve muscle groups. WWP A/p: S/p R humerus nonunion repair, doing well Hospitalist consult requested to manage her pulmonary status. There are some questions about whether we can use her port. The hospitalist should be able to assist with answering that question. Probably home tomorrow. Vital Signs 01/13/18 01/13/18 01/13/18 06:36 06:37 11:30 Temperature 97.9 F Pulse Rate 95 97 112 Respiratory 20 16 Rate Blood Pressure 101/57 101/57 106/67 (mmHg) O2 Sat by Pulse 93 92 91 Oximetry 01/13/18 01/13/18 01/13/18 11:35 11:40 11:45 Temperature Pulse Rate 111 108 105 Respiratory 14 15 17 Rate Blood Pressure 104/66 103/65 105/67 (mmHg) O2 Sat by Pulse 91 91 91 Oximetry 01/13/18 01/13/18 01/13/18 11:55 12:03 12:05 Temperature Pulse Rate 107 102 102 Respiratory 13 18 14 Rate Blood Pressure 102/69 96/59 110/69 (mmHg) O2 Sat by Pulse 90 92 92 Oximetry 01/13/18 01/13/18 01/13/18 12:24 12:30 12:46 Temperature Pulse Rate 105 98 98 Respiratory 19 15 11 Rate Blood Pressure 109/51 102/53 97/41 (mmHg) O2 Sat by Pulse 93 91 92 Oximetry 01/13/18 01/13/18 01/13/18 13:00 13:16 13:32 Temperature Pulse Rate 97 99 99 Respiratory 13 14 22 Rate Blood Pressure 103/59 97/59 103/55 (mmHg) O2 Sat by Pulse 93 94 95 Oximetry 01/13/18 01/13/18 01/13/18 13:45 13:46 14:01 Temperature 98.1 F 98.5 F Pulse Rate 98 92 Respiratory 20 16 Rate Blood Pressure 91/60 110/54 (mmHg) O2 Sat by Pulse 94 95 Oximetry 01/13/18 01/13/18 01/13/18 14:29 15:04 16:00 Temperature 98.2 F Pulse Rate 97 Respiratory 16 18 Rate Blood Pressure 114/59 (mmHg) O2 Sat by Pulse 93 95 Oximetry 08/27/18 16:04 Temperature 98.3 F Pulse Rate 93 Respiratory 18 Rate Blood Pressure 114/59 (mmHg) O2 Sat by Pulse 95 Oximetry
[2018-01-13] MEDS: Acetaminophen TAB* 325 MG PO SCH (19:31)
[2018-01-13] MEDS: Magnesium Hydroxide LIQ* 30 ML UDC PO SCH (19:32)
--- NOTE | 2018-01-13 21:29 | OP ---
DATE OF OPERATION: 01/13/18 - ROOM #342 DATE OF : 52 SURGEON: Mateusz Foster MD PATIENT CARE PROVIDER: CALLUM Frazier. An office administrative assistant was needed for the entirety of the procedure to aid in position of the arm and retraction. ANESTHESIOLOGIST: Dr. Arnett. ANESTHESIA: General. PRE-OP DIAGNOSIS: Right distal humeral shaft oligotrophic nonunion. POST-OP DIAGNOSIS: Right distal humeral shaft oligotrophic nonunion. OPERATIVE PROCEDURE: Repair of right distal humeral oligotrophic nonunion with autogenous local bone grafting and compression technique using Synthes plates and screws. INDICATIONS: Ms. Varela has stage IV lung cancer. She fractured the right humerus about 6 months ago. It has gone to a frankly mobile nonunion likely secondary to her being on chemotherapy. It has gotten so painful that she can no longer continue the way it is. She has held her chemotherapy per the recommendation of her oncologist. She has a PleurX catheter that drains her pleural effusion. Certainly, she is high risk from a medical standpoint. We talked about risks and benefits including the risk of nonunion despite doing surgery and risk of radial nerve palsy, risk of infection, which is certainly higher given her baseline malnourished state. Ultimately, she wanted to proceed with surgery. ESTIMATED BLOOD LOSS: 200 mL. COMPLICATIONS: None. FINDINGS: See above and below. DESCRIPTION OF PROCEDURE: Wendy was seen in the preoperative holding. Correct site and side were identified. We came back to the operating room where the arm was prescrubbed. She was then prepped and draped in the usual fashion, was positioned supine with the use of an arm table. A time-out was performed. I made a longitudinal incision over the anterolateral upper arm on the lateral border of the biceps. Dissection was carried down. The cephalic vein was preserved throughout the entirety of the procedure. The perforators were tied off with 4-0 Vicryl suture and the vein was mobilized medially. I then retracted the biceps medially. I gently placed Hohmann retractor around the bone. I split the brachialis in its midline to expose the nonunion. There was a large shell of bone that formed anterior to the bone. I was able to excise all soft tissue around this and then this was removed to expose the humeral shaft. I then took quite a bit of time to debride as much callus as I needed to be able to reduce it. I trimmed back the edges until I had the normal osage bone to the extent possible. There was an oblique segment to the fracture. It took a lot of time but ultimately we were able to get everything nicely cleaned up so that those 2 pieces keyed in nicely. Things were held with couple of point of reduction clamps. I then placed one 3.5 countersunk lag screw and more distal to this, I placed another 2.7 mm countersunk lag screw. The alignment had been checked fluoroscopically with the mini C-arm. At this point, I had morcellized some of my graft taken from the callus that had formed. This was packed all around the nonunion site. I then placed a Synthes 4.5 narrow plate on the anterior aspect and this was secured with cortical and a locking screw distally and proximally with cortical screws. I had flexed and extended the elbow multiple times to make sure the plate did not impinge on the coronoid. I got the plate as far distal without impinging as possible. Again, I directly palpated to make sure it was not impinging distally. I then decided I wanted to further augment the fixation given her poor nutrition and her cancer and the high chance of persistent nonunion despite surgery, I therefore placed another plate medially with a 3.5 Synthes LC-DCP plate. This was secured using couple of screws distally and couple of screws proximally. At this point, the fixation was very rigid. Things were extremely tightly compressed with lag screws. I was very pleased. The radial nerve had been protected throughout the case. The wound was copiously irrigated out. The brachialis was closed with 3-0 PDS suture. The fascia was closed with 3-0 PDS suture taking care not to injure the cephalic vein. Subcutaneous tissue was reapproximated with 3-0 PDS suture. I had placed 0.5 g of vanco powder all around the plates prior to closing the soft tissue over the plates. Some more vanco powder was sprinkled into the subcutaneous tissue. The skin was closed with arcadio. Wounds were dressed. She was awoken up and taken to the recovery room in stable condition. [id number]/[facility] #: [id number] [facility]PITALDanny
--- NOTE | 2018-01-13 22:20 | CONS ---
CONSULTATION REPORT: DATE OF CONSULT: 01/13/18 TIME OF CONSULTATION: 6:15 p.m. REQUESTING SERVICE: Orthopedic Surgery. REASON FOR CONSULT: Respiratory status and port issues. REASON FOR ADMISSION: Elective operative repair of a nonunion fracture of the right humerus. HISTORY OF PRESENT ILLNESS: This is a 67-year-old female with stage IV non- small cell lung cancer, current being treated by Dr. Vo, who presented with a spiral fracture of her humerus after a fall in July 2017. She was treated nonoperatively and was following outpatient. When 5 weeks ago she developed worsening pain and a deformity over the right humerus, Dr. Foster re-imaged the humerus and found nonunion, so she was admitted today for repair. Hospitalist service was consulted to manage her pulmonary status and her port. I saw and evaluated Ms. Varela postoperatively and she is doing very well. She has no pain at this time. Her breathing feels comfortable and she has no other complaints. Regarding her oncologic history, she was diagnosed with non-small cell lung cancer of the left lung based on a thoracentesis that was positive for malignancy and she is currently on Taxotere q.3 weeks and most recently underwent chemotherapy 4 weeks ago. As far as she knows, the cancer has metastasized to bone and lymph nodes, but no other organs. Again, this is per her report. PAST MEDICAL HISTORY: 1. Non-small cell lung cancer as above. 2. Hypothyroidism. 3. Chronic pain. 4. Recurrent pleural effusion with Pleurx catheter. SOCIAL HISTORY: She lives in [place] with her . She does not smoke and she has never been a smoker. She does not drink or use illicit drugs. She walks with a walker, however notes that her mobility has been markedly limited lately and she spends much of her day at rest. Her would be her decision maker should she be unable to make decisions. PHYSICAL EXAM: Temperature 98.3, heart rate 93, respiratory rate 18, pulse ox 95% on 2 L. She was documented to be on 6 L when she came out of the operating room with a pulse ox of 91%, but she has since been weaned down to 2 L. Blood pressure 114/59. General: Alert, bald female, in no distress. HEENT: Pupils are equal and reactive to light. Eyes are dry. Oral mucosa is moist. No pharyngeal exudates or erythema. Neck: No cervical or supraclavicular lymphadenopathy. No JVP. Chest: Regular rate and rhythm. No murmurs. A Pleurx catheter is present in the right mid axillary line with no surrounding erythema or drainage. Lungs have good air movement bilaterally. Abdomen: Soft , nontender, nondistended. Extremities: No edema. Strength is 5/5 in her legs. The right upper extremity is casted and wrapped from shoulder to fingers. Capillary refill is good and sensation is intact. DIAGNOSTIC DATA: A humerus x-ray from 12/24/17 shows dysfunctional fracture healing response with suggestion of change in alignment of the fracture site compared with September 2017 exam, possible early pseudoarthrosis formation and diffuse severe soft tissue swelling, extensive subcutaneous emphysema about the shoulder, axilla, and right breast, likely attributed to the right inferior thorax Pleurx catheter. ASSESSMENT AND PLAN: This is a 67-year-old female with history of stage IV non - small cell lung cancer who was admitted to the orthopedic surgery service for an elective nonunion repair of the right humerus. Hospital Medicine was consulted for respiratory status management and port management. 1. Acute hypoxic respiratory failure. She does have known history of bilateral pleural effusions and currently has a Pleurx catheter in the right lung. We will check a chest x-ray to be sure the Pleurx catheter is draining adequately and attempts to wean down the oxygen as able. She has no home O2 requirement. She should use an incentive spirometer postoperatively. Of course , given her malignancy, PE remains on the differential for hypoxia; however, I suspect that atelectasis and effusion is more likely to be the underlying etiology of her hypoxia at this time. 2. Port management. I discussed her port with her oncologist, Dr. Vo, who approved the use of her port during this admission and I have communicated this with her nurse. 3. Metastatic non-small cell lung cancer. Continue Pleurx catheter as above and needs followup with Dr. Vo for ongoing chemotherapy treatment. Thank you for allowing me to participate in the care of your patient. Please do not hesitate to call me with any questions or concerns. [id number]/[facility] #: [id number] MTDD
[2018-01-13] MEDS: fentaNYL PATCH 50 MCG/HR TRANSDERM SCH (23:13)
[2018-01-14] MEDS: Acetaminophen TAB* 325 MG PO SCH ×3 (03:29→19:46)
[2018-01-14] MEDS: oxyCODONE/Acetamin 5/325 MG* TAB PO PRN ×4 (06:06→19:46)
[2018-01-14] MEDS: fentaNYL Patch Check Q Shift 1 NOTE FOLLOW UP SCH ×2 (07:18→19:24)
--- NOTE | 2018-01-14 08:01 | RAD ---
INDICATION: Hypoxia COMPARISON: Most recent comparison chest x-rays dated December 19, 2017 TECHNIQUE: Single AP portable view of the chest was obtained. FINDINGS: Image quality is compromised due to the relative inferiority of a portable chest x-ray. Again seen is a right subclavian vein Mediport with the tip terminating at the cavoatrial junction. A percutaneous pleural drain is again noted overlying the right lung base. The heart and mediastinum exhibit normal size and contour. The right lung is adequately aerated. There is density obscuring the left lung base. Visualized bones are normal for the patient's age. IMPRESSION: 1. Pleural effusion and/or atelectasis obscuring the left lung base and left hemidiaphragm. 2. Lines and tubes overlying the right hemithorax are stable and appear to be appropriately positioned.
[2018-01-14] MEDS: buPROPion SR TAB.SR* 150 MG PO SCH (09:52)
[2018-01-14] MEDS: ALPRAZolam TAB* 0.25 MG PO PRN ×2 (09:52→18:36)
[2018-01-14] MEDS: Magnesium Hydroxide LIQ* 30 ML UDC PO SCH ×3 (09:52→22:00)
--- NOTE | 2018-01-14 10:08 | PN ---
Progress Note - Progress Note Date of Service: 01/14/18 SOAP: Subjective: [Pt was seen this morning sitting up in bed. She states that she is doing well. Pain is a 3/10 at this point. She states that pain is up to a 4/10 before pain medication. She is currently hungry and would like breakfast if possible. Denies any chest pain, sob, nausea or vomiting. ] Objective: [General: A&oX3, NAD MSK, RUE: Dressing is c/d/i. Able to move all fingers. Sensation is full and intact. Cap refill is less than 2 seconds in the fingers although difficult to see due to her rough nails as a result of chemotherapy. ] Vital Signs Temp 98.1 F 01/14/18 04:03 Pulse 94 01/14/18 07:27 Resp 16 01/14/18 09:52 BP 133/58 01/14/18 07:27 Pulse Ox 98 01/14/18 08:15 Intake & Output 01/13/18 01/14/18 01/14/18 18:59 06:59 18:59 Intake Total 1640 1795 Output Total 700 Balance 1640 1095 Intake: IV Fluids 1400 985 LR 1400 985 Oral 240 810 Output: Urine 700 Assessment: [ S/p R humerus nonunion repair, doing well Plan: [ Continue with pain medication D/C home today, waiting on hospitalist evaluation for discharge.]
--- NOTE | 2018-01-14 10:30 | PN ---
Subjective Date of Service: 01/14/18 Interval History: Feels good today, has some pain at the surgical site but otherwise feels good. Her is at the bedside. No shortness of breath, no chest pain, no orthopnea. SHe has not worked with PT yet Objective Active Medications: Acetaminophen (Tylenol Tab*) 975 mg PO Q8H [facility] Last Admin: 01/14/18 03:29 Dose: 975 mg Alprazolam (Xanax Tab*) 0.25 mg PO Q6H PRN PRN Reason: ANXIETY Last Admin: 01/14/18 09:52 Dose: 0.25 mg Atorvastatin Calcium (Lipitor*) 40 mg PO 1700 [facility] Bupropion HCl (Wellbutrin Sr Tab*) 150 mg PO QAM [facility] Last Admin: 01/14/18 09:52 Dose: 150 mg Diphenhydramine HCl (Benadryl Po*) 25 mg PO Q6H PRN PRN Reason: itching Escitalopram Oxalate (Lexapro (Nf)) 10 mg PO QAM [facility] Fentanyl (Duragesic Patch 50 Mcg/Hr*) 50 mcg TRANSDERM Q72H [facility] Last Admin: 01/13/18 23:13 Dose: 50 mcg Heparin Sodium (Porcine) (Heparin Flush Port (Ivad)) 5 ml FLUSH DAILY [facility]; Protocol Last Admin: 01/14/18 08:09 Dose: Not Given Lactated Ringer's (Lactated Ringers 1000 Ml Bag*) 1,000 mls @ 100 mls/hr IV PER RATE [facility] Last Admin: 01/14/18 01:46 Dose: 100 mls/hr Levothyroxine Sodium (Synthroid Tab*) 100 mcg PO MoWeFr@0900 [facility] Levothyroxine Sodium (Synthroid Tab*) 75 mcg PO SuTuThSa@0900 [facility] Magnesium Hydroxide (Milk Of Magnesia Liq*) 30 ml PO BID [facility] Last Admin: 01/14/18 09:57 Dose: Not Given Magnesium Hydroxide (Milk Of Magnesia Liq*) 30 ml PO Q6H PRN PRN Reason: constipation Morphine Sulfate (Morphine Inj ((Syringe))*) 2 mg IV Q2H PRN PRN Reason: PAIN - SEVERE Oxycodone/Acetaminophen (Percocet 5/325 Tab*) 1 tab PO Q4H PRN PRN Reason: PAIN Oxycodone/Acetaminophen (Percocet 5/325 Tab*) 2 tab PO Q4H PRN PRN Reason: PAIN Last Admin: 01/14/18 06:06 Dose: 2 tab Pharmacy Profile Note (Scopolamine Patch Remove*) 1 note PATCH OFF Q72H ONE Stop: 01/16/18 05:25 Pharmacy Profile Note (Fentanyl Patch Check Q Shift) 1 note FOLLOW UP 0700, 1900 [facility] Last Admin: 01/14/18 07:18 Dose: 1 note Scopolamine (Transderm-Scop 1.5 Mg Patch*) 1 patch TRANSDERM Q72H PRN PRN Reason: Nausea/Vomiting Vital Signs - 8 hr 01/14/18 01/14/18 01/14/18 03:56 04:03 06:06 Temperature 98.1 F Pulse Rate 91 Respiratory 16 18 Rate Blood Pressure 106/44 (mmHg) O2 Sat by Pulse 94 93 Oximetry 01/14/18 01/14/18 01/14/18 07:27 08:15 09:05 Temperature Pulse Rate 94 Respiratory 16 16 16 Rate Blood Pressure 133/58 (mmHg) O2 Sat by Pulse 98 98 Oximetry 01/14/18 09:52 Temperature Pulse Rate Respiratory 16 Rate Blood Pressure (mmHg) O2 Sat by Pulse Oximetry Oxygen Devices in Use Now: Nasal Cannula Appearance: alert, well appearing, joking with Eyes: No Scleral Icterus Ears/Nose/Mouth/Throat: NL Teeth, Lips, Gums Neck: NL Appearance and Movements; NL JVP Respiratory: Symmetrical Chest Expansion and Respiratory Effort, Clear to Auscultation, - - right pleurex catheter right mid-axillary line Abdominal: NL Sounds; No Tenderness; No Distention Lymphatic: No Cervical Adenopathy Extremities: No Edema Skin: No Rash or Ulcers Neurological: Alert and Oriented x 3 Assess/Plan/Problems-Billing Assessment: 67 year old female with history of stage [address] Vo admitted yesterday for an elective nonunion fracture repair of the right humerus. We were consulted for respiratory management. - Patient Problems (1) Acute respiratory failure with hypoxia Current Visit: Yes Status: Acute Code(s): J96.01 - ACUTE RESPIRATORY FAILURE WITH HYPOXIA SNOMED Code(s): 99376212 Comment: CXR yesterday is stable--the right pleurex is draining well with good expansion of the right lung; the left lung does have an effusion but it has been there since at least November when that last imaging was obtained Wean O2 today; baseline is no O2 requirement and she should be able to be weaned off O2 now (2) Metastatic lung cancer (metastasis from lung to other site) Current Visit: No Status: Acute Code(s): C34.90 - MALIGNANT NEOPLASM OF UNSP PART OF UNSP BRONCHUS OR LUNG SNOMED Code(s): 66395676 Comment: follow with [facility] Status and Disposition: pending PT/OT eval
[2018-01-14] MEDS: Levothyroxine TAB* 75 MCG TAB PO SCH (11:58)
[2018-01-14] MEDS: CMC:Escitalopram (NF) 10 MG TAB PO SCH (12:08)
[2018-01-14] MEDS: Atorvastatin* 40 MG TAB PO SCH (18:33)
[2018-01-14] MEDS: Ondansetron INJ* 2 MG/ML VIAL IV PRN (19:46)
[2018-01-15] MEDS: oxyCODONE/Acetamin 5/325 MG* TAB PO PRN (02:31)
[2018-01-15] MEDS: Acetaminophen TAB* 325 MG PO SCH ×3 (04:08→19:37)
[2018-01-15] MEDS: fentaNYL Patch Check Q Shift 1 NOTE FOLLOW UP SCH ×2 (06:45→18:52)
[2018-01-15] MEDS: buPROPion SR TAB.SR* 150 MG PO SCH (08:52)
[2018-01-15] MEDS: Levothyroxine TAB* 100 MCG TAB PO SCH (08:52)
[2018-01-15] MEDS: CMC:Escitalopram (NF) 10 MG TAB PO SCH (08:52)
[2018-01-15] MEDS: ALPRAZolam TAB* 0.25 MG PO PRN (08:55)
[2018-01-15] MEDS: Magnesium Hydroxide LIQ* 30 ML UDC PO SCH ×2 (08:56→21:17)
--- NOTE | 2018-01-15 10:46 | PN ---
Progress Note - Progress Note Date of Service: 01/15/18 SOAP: Subjective: []Patient seen at bedside. Denies chest pain, shortness of breath or dizziness. Still on 1 L oxygen. RUE pain is tolerable, much better than prior to surgery. Has had an elevated heart rate over the past 24 hours Objective: []General: Well appearing, NAD RLE: Splint in place, cdi. Hand and digits edematous without erythema, able to flex and extend all digits. Sensation intact to light touch and capillary refill less than two seconds distally. BL LE calves supple and nontender without erythema or palpable cords. Assessment: []S/p R humerus nonunion repair Plan: []NWB RUE PT/OT Patient is max assist with nursing today, will need re-eval by PT. Convert to inpatient, will likely need rehab. PMRU referral in SCDs Heparin DVT prophylaxis while in house Vital Signs Temp 98.2 F 01/15/18 07:26 Pulse 103 01/15/18 07:26 Resp 18 01/15/18 08:55 BP 115/54 01/15/18 07:26 Pulse Ox 95 01/15/18 07:50 Intake & Output 01/14/18 01/15/18 01/15/18 18:59 06:59 18:59 Intake Total 1720 1517 990 Output Total 0 850 300 Balance 1720 667 690 Intake: IV Fluids 1000 917 990 LR 1000 917 Oral 720 600 Output: Urine 0 850 300 Other: # Bowel Movements 1 Estimated Stool Amount Large # Voids 1
[2018-01-15 12:05] LABS: ABS Basophils 0 10^3/ul (0-0.2); ABS Eosinophils 0.1 10^3/ul (0-0.6); ABS Lymphocytes 0.6 10^3/ul (1.0-4.8); ABS Monocytes 0.6 10^3/ul (0-0.8); ABS Neutrophils 5.8 10^3/ul (1.5-7.7); ABS Nucleated RBC 0 10^3/ul; Eosinophil % 1.2 % (0-6); Hematocrit 26 % (35-47); Hemoglobin 8.7 g/dl (12.0-16.0); Lymphocyte % 8.3 % (25-47); Mean Corpuscular HGB Conc 33 g/dl (31-36); Mean Corpuscular Hemoglobin 29 pg (27-31); Mean Corpuscular Volume 88 fL (80-97); Mean Platelet Volume 7.2 um3 (7.4-10.4); Nucleated Red Blood Cells % 0; Platelet Count 262 10^3/ul (150-450); Red Blood Count 2.97 10^6/ul (4.00-5.40); Red Cell Distribution Width 22 % (10.5-15); White Blood Count 7.1 10^3/ul (3.5-10.8)
[2018-01-15 12:21] LABS: EGFR Non-African American 106.1 (>60)
[2018-01-15 12:27] LABS: INR 0.85 (0.77-1.02)
[2018-01-15] MEDS: Ondansetron INJ* 2 MG/ML VIAL IV PRN ×2 (12:56→21:22)
[2018-01-15] MEDS: Heparin VIAL(*) 5000 UNITS/ML VIAL (FIVE THOUSAND) SUBCUT SCH ×2 (14:31→21:22)
[2018-01-15] MEDS: Atorvastatin* 40 MG TAB PO SCH (17:16)
[2018-01-16] MEDS: Ondansetron INJ* 2 MG/ML VIAL IV PRN ×2 (04:11→10:07)
[2018-01-16] MEDS: Acetaminophen TAB* 325 MG PO SCH ×3 (04:11→19:26)
[2018-01-16] MEDS ORDERED: Scopolamine PATCH Remove* 1 NOTE MISC PATCH OFF ONE (05:24)
[2018-01-16] MEDS: Heparin VIAL(*) 5000 UNITS/ML VIAL (FIVE THOUSAND) SUBCUT SCH ×3 (05:26→22:15)
[2018-01-16] MEDS: fentaNYL Patch Check Q Shift 1 NOTE FOLLOW UP SCH ×2 (07:20→19:17)
[2018-01-16] MEDS: CMC:Escitalopram (NF) 10 MG TAB PO SCH (10:04)
[2018-01-16] MEDS: ALPRAZolam TAB* 0.25 MG PO PRN ×2 (10:04→22:23)
[2018-01-16] MEDS: Magnesium Hydroxide LIQ* 30 ML UDC PO SCH ×2 (10:04→22:14)
[2018-01-16] MEDS: Levothyroxine TAB* 75 MCG TAB PO SCH (10:04)
[2018-01-16] MEDS: oxyCODONE/Acetamin 5/325 MG* TAB PO PRN ×3 (10:06→19:27)
[2018-01-16] MEDS: buPROPion SR TAB.SR* 150 MG PO SCH (10:06)
--- NOTE | 2018-01-16 11:01 | PN ---
Progress Note - Progress Note Date of Service: 01/16/18 SOAP: Subjective: []Patient seen at bedside. She is feeling well without complaints. Denies chest pain, dizziness, nausea, right arm pain. Her splint feels comfortable. She does not feel short of breath but feels her pleural catheter needs to be drained. Objective: []General: Well appearing, NAD RLE: Splint in place, cdi. Hand and digits with improved edema and still without erythema, able to flex and extend all digits. Sensation intact to light touch and capillary refill less than two seconds distally. BL LE calves supple and nontender without erythema or palpable cords. Assessment: []S/p R humerus nonunion repair Plan: []NWB RUE PT/OT SCDs Heparin DVT prophylaxis while in house bed offer for samson swing tomorrow, PMRU unable to offer bed Has a pleural catheter she feels needs to be drained. Nursing made aware. Vital Signs Temp 98.2 F 01/16/18 08:03 Pulse 100 01/16/18 08:03 Resp 21 01/16/18 10:06 BP 136/74 01/16/18 08:03 Pulse Ox 96 01/16/18 08:03 Intake & Output 01/15/18 01/16/18 01/16/18 18:59 06:59 18:59 Intake Total 1650 400 Output Total 500 850 200 Balance 1150 -450 -200 Intake: IV Fluids 990 Oral 660 400 Output: Urine 500 850 200 Other: # Bowel Movements 0
--- NOTE | 2018-01-16 15:10 | PN ---
Subjective Date of Service: 01/16/18 Interval History: Pt is feeling ok currently. She was slightly SOB earlier today and had some pain under her R breast. Now improved after percocet and a warm pack. She is concerned she may need to drain a pleural effusion via the pleurex catheter. Objective Active Medications: Acetaminophen (Tylenol Tab*) 975 mg PO Q8H [facility] Last Admin: 01/16/18 15:01 Dose: 975 mg Alprazolam (Xanax Tab*) 0.25 mg PO Q6H PRN PRN Reason: ANXIETY Last Admin: 01/16/18 10:04 Dose: 0.25 mg Atorvastatin Calcium (Lipitor*) 40 mg PO 1700 [facility] Last Admin: 01/15/18 17:16 Dose: 40 mg Bupropion HCl (Wellbutrin Sr Tab*) 150 mg PO QAM [facility] Last Admin: 01/16/18 10:06 Dose: 150 mg Diphenhydramine HCl (Benadryl Po*) 25 mg PO Q6H PRN PRN Reason: itching Escitalopram Oxalate (Lexapro (Nf)) 10 mg PO QAM [facility] Last Admin: 01/16/18 10:04 Dose: 10 mg Fentanyl (Duragesic Patch 50 Mcg/Hr*) 50 mcg TRANSDERM Q72H [facility] Last Admin: 01/13/18 23:13 Dose: 50 mcg Heparin Sodium (Porcine) (Heparin Flush Port (Ivad)) 5 ml FLUSH DAILY [facility]; Protocol Last Admin: 01/16/18 10:17 Dose: 5 ml Heparin Sodium (Porcine) (Heparin Vial(*)) 5,000 units SUBCUT Q8HR [facility] Last Admin: 01/16/18 15:01 Dose: 5,000 units Levothyroxine Sodium (Synthroid Tab*) 100 mcg PO MoWeFr@0900 [facility] Last Admin: 01/15/18 08:52 Dose: 100 mcg Levothyroxine Sodium (Synthroid Tab*) 75 mcg PO SuTuThSa@0900 [facility] Last Admin: 01/16/18 10:04 Dose: 75 mcg Magnesium Hydroxide (Milk Of Magnesia Liq*) 30 ml PO BID [facility] Last Admin: 01/16/18 10:04 Dose: 30 ml Magnesium Hydroxide (Milk Of Magnesia Liq*) 30 ml PO Q6H PRN PRN Reason: constipation Morphine Sulfate (Morphine Inj ((Syringe))*) 2 mg IV Q2H PRN PRN Reason: PAIN - SEVERE Ondansetron HCl (Zofran Inj*) 4 mg IV Q6H PRN PRN Reason: NAUSEA Last Admin: 01/16/18 10:07 Dose: 4 mg Oxycodone/Acetaminophen (Percocet 5/325 Tab*) 1 tab PO Q4H PRN PRN Reason: PAIN Last Admin: 01/16/18 15:01 Dose: 1 tab Oxycodone/Acetaminophen (Percocet 5/325 Tab*) 2 tab PO Q4H PRN PRN Reason: PAIN Last Admin: 01/14/18 19:46 Dose: 2 tab Pharmacy Profile Note (Fentanyl Patch Check Q Shift) 1 note FOLLOW UP 0700, 1900 [facility] Last Admin: 01/16/18 07:20 Dose: 1 note Vital Signs - 8 hr 01/16/18 01/16/18 01/16/18 08:00 08:03 10:04 Temperature 98.2 F Pulse Rate 100 Respiratory 21 20 21 Rate Blood Pressure 136/74 (mmHg) O2 Sat by Pulse 96 96 Oximetry 01/16/18 01/16/18 10:06 15:01 Temperature Pulse Rate Respiratory 21 18 Rate Blood Pressure (mmHg) O2 Sat by Pulse Oximetry Oxygen Devices in Use Now: Nasal Cannula Appearance: Middle aged female, sitting up in bed, NAD Eyes: No Scleral Icterus Ears/Nose/Mouth/Throat: Mucous Membranes Moist Respiratory: Symmetrical Chest Expansion and Respiratory Effort, Clear to Auscultation - slight decrease to auscultation at the R base Cardiovascular: NL Sounds; No Murmurs; No JVD, RRR, No Edema Abdominal: NL Sounds; No Tenderness; No Distention Extremities: No Clubbing, Cyanosis Skin: No Nodules or Sclerosis Neurological: Alert and Oriented x 3 Result Diagrams: 01/15/18 11:45 01/15/18 11:45 Assess/Plan/Problems-Billing 67 year old female with history of stage [address] Vo admitted for an elective nonunion fracture repair of the right humerus. We were consulted for respiratory management. - Patient Problems (1) Acute respiratory failure with hypoxia Current Visit: Yes Status: Acute Code(s): J96.01 - ACUTE RESPIRATORY FAILURE WITH HYPOXIA SNOMED Code(s): 58565423 Comment: Pt c/o SOB earlier today but on exam no concerning features. CXR obtained and no significant pleural effusion. No need for pleurex to be utilized. She likely does not need supplemental O2 but it provides the patient some comfort. (2) Metastatic lung cancer (metastasis from lung to other site) Current Visit: Yes Status: Acute Code(s): C34.90 - MALIGNANT NEOPLASM OF UNSP PART OF UNSP BRONCHUS OR LUNG SNOMED Code(s): 29752218 Comment: Follow up with Dr Carrasco will be on hold while in rehab and healing her fracture repair. Status and Disposition: pending PT/OT eval
--- NOTE | 2018-01-16 16:13 | RAD ---
INDICATION: Evaluate for right pleural effusion. COMPARISON: Comparison is made with a prior chest x-ray study from January 13, 2018. TECHNIQUE: A portable view of the chest was obtained. FINDINGS: Cardiac and mediastinal contours appear to be within normal limits. There is a power port central venous catheter. The catheter tip projects over the right atrium. There appears to be a chest tube at the right lung base. There is pleural thickening and a left pleural effusion. There is mild prominence of the interstitial markings. There is an infiltrate in the mid and lower left lung field which appears unchanged and a small infiltrate at the right lung base also unchanged. IMPRESSION: BILATERAL INFILTRATES AND LEFT PLEURAL EFFUSION AND THICKENING, UNCHANGED.
[2018-01-16] MEDS: Atorvastatin* 40 MG TAB PO SCH (17:33)
[2018-01-16] MEDS: fentaNYL PATCH 50 MCG/HR TRANSDERM SCH (22:16)
[2018-01-17] MEDS: oxyCODONE/Acetamin 5/325 MG* TAB PO PRN ×2 (03:32→10:21)
[2018-01-17] MEDS: Acetaminophen TAB* 325 MG PO SCH ×2 (03:32→10:24)
[2018-01-17] MEDS: Heparin VIAL(*) 5000 UNITS/ML VIAL (FIVE THOUSAND) SUBCUT SCH (05:24)
[2018-01-17] MEDS: fentaNYL Patch Check Q Shift 1 NOTE FOLLOW UP SCH (06:50)
[2018-01-17] MEDS: CMC:Escitalopram (NF) 10 MG TAB PO SCH (08:15)
[2018-01-17] MEDS: Levothyroxine TAB* 100 MCG TAB PO SCH (08:15)
[2018-01-17] MEDS: buPROPion SR TAB.SR* 150 MG PO SCH (08:15)
[2018-01-17] MEDS: Magnesium Hydroxide LIQ* 30 ML UDC PO SCH (08:16)
--- NOTE | 2018-01-17 10:17 | PN ---
Progress Note - Progress Note Date of Service: 01/17/18 SOAP: Subjective: Patient seen at bedside. She is feeling well without complaints. Denies chest pain, dizziness, nausea, right arm pain. Her splint feels comfortable. She does feel short of breath much like yesterday but the xray shows no significant effusion. Objective: []General: Well appearing, NAD RLE: Splint in place, cdi. Hand and digits with improved edema and still without erythema, able to flex and extend all digits. Sensation intact to light touch and capillary refill less than two seconds distally. BL LE calves supple and nontender without erythema or palpable cords. Assessment: []S/p R humerus nonunion repair Plan: []NWB RUE PT/OT SCDs Heparin DVT prophylaxis while in house bed offer for samson mackey today Has a pleural catheter she feels needs to be drained. Nursing made aware.
[2018-01-17] MEDS: ALPRAZolam TAB* 0.25 MG PO PRN (10:21)
--- NOTE | 2018-01-17 11:46 | PN ---
Subjective Date of Service: 01/17/18 Interval History: Pt is feeling ok. No SOB or R sided chest pain today. She feels ready to go to rehab. She is nervous about being off her chemotherapy and states she will be worrried that every little thing she feels is a new tumor. I have recommended that she contact Dr. Vo's office when she leaves rehab. Objective Active Medications: Acetaminophen (Tylenol Tab*) 975 mg PO Q8H [facility] Last Admin: 01/17/18 10:24 Dose: Not Given Alprazolam (Xanax Tab*) 0.25 mg PO Q6H PRN PRN Reason: ANXIETY Last Admin: 01/17/18 10:21 Dose: 0.25 mg Atorvastatin Calcium (Lipitor*) 40 mg PO 1700 [facility] Last Admin: 01/16/18 17:33 Dose: 40 mg Bupropion HCl (Wellbutrin Sr Tab*) 150 mg PO QAM [facility] Last Admin: 01/17/18 08:15 Dose: 150 mg Diphenhydramine HCl (Benadryl Po*) 25 mg PO Q6H PRN PRN Reason: itching Escitalopram Oxalate (Lexapro (Nf)) 10 mg PO QAM [facility] Last Admin: 01/17/18 08:15 Dose: 10 mg Fentanyl (Duragesic Patch 50 Mcg/Hr*) 50 mcg TRANSDERM Q72H [facility] Last Admin: 01/16/18 22:16 Dose: 50 mcg Heparin Sodium (Porcine) (Heparin Flush Port (Ivad)) 5 ml FLUSH DAILY [facility]; Protocol Last Admin: 01/17/18 08:15 Dose: 5 ml Heparin Sodium (Porcine) (Heparin Vial(*)) 5,000 units SUBCUT Q8HR [facility] Last Admin: 01/17/18 05:24 Dose: 5,000 units Levothyroxine Sodium (Synthroid Tab*) 100 mcg PO MoWeFr@0900 [facility] Last Admin: 01/17/18 08:15 Dose: 100 mcg Levothyroxine Sodium (Synthroid Tab*) 75 mcg PO SuTuThSa@0900 [facility] Last Admin: 01/16/18 10:04 Dose: 75 mcg Magnesium Hydroxide (Milk Of Magnesia Liq*) 30 ml PO BID [facility] Last Admin: 01/17/18 08:16 Dose: 30 ml Magnesium Hydroxide (Milk Of Magnesia Liq*) 30 ml PO Q6H PRN PRN Reason: constipation Morphine Sulfate (Morphine Inj ((Syringe))*) 2 mg IV Q2H PRN PRN Reason: PAIN - SEVERE Ondansetron HCl (Zofran Inj*) 4 mg IV Q6H PRN PRN Reason: NAUSEA Last Admin: 01/16/18 10:07 Dose: 4 mg Oxycodone/Acetaminophen (Percocet 5/325 Tab*) 1 tab PO Q4H PRN PRN Reason: PAIN Last Admin: 01/17/18 03:32 Dose: 1 tab Oxycodone/Acetaminophen (Percocet 5/325 Tab*) 2 tab PO Q4H PRN PRN Reason: PAIN Last Admin: 01/17/18 10:21 Dose: 2 tab Pharmacy Profile Note (Fentanyl Patch Check Q Shift) 1 note FOLLOW UP 0700, 1900 [facility] Last Admin: 01/17/18 06:50 Dose: 1 note Vital Signs - 8 hr 01/17/18 01/17/18 01/17/18 04:03 04:17 05:25 Temperature 98.1 F Pulse Rate 90 86 Respiratory 16 16 Rate Blood Pressure 100/56 (mmHg) O2 Sat by Pulse 97 Oximetry 01/17/18 01/17/18 01/17/18 07:59 08:00 10:21 Temperature 98.3 F Pulse Rate 93 Respiratory 16 16 18 Rate Blood Pressure 145/59 (mmHg) O2 Sat by Pulse 96 96 Oximetry Oxygen Devices in Use Now: Nasal Cannula Appearance: Middle aged female sitting up in bed, NAD Eyes: No Scleral Icterus Ears/Nose/Mouth/Throat: Mucous Membranes Moist Respiratory: Symmetrical Chest Expansion and Respiratory Effort, Clear to Auscultation Cardiovascular: NL Sounds; No Murmurs; No JVD, RRR, No Edema Abdominal: NL Sounds; No Tenderness; No Distention Extremities: No Clubbing, Cyanosis Skin: No Nodules or Sclerosis Neurological: Alert and Oriented x 3 Result Diagrams: 01/15/18 11:45 01/15/18 11:45 Assess/Plan/Problems-Billing 67 year old female with history of stage [address] Vo admitted for an elective nonunion fracture repair of the right humerus. We were consulted for respiratory management. - Patient Problems (1) Acute respiratory failure with hypoxia Current Visit: Yes Status: Acute Code(s): J96.01 - ACUTE RESPIRATORY FAILURE WITH HYPOXIA SNOMED Code(s): 05739448 Comment: No issues today. Pt will monitor symptoms and utilize her pleurex if needed. (2) Metastatic lung cancer (metastasis from lung to other site) Current Visit: Yes Status: Acute Code(s): C34.90 - MALIGNANT NEOPLASM OF UNSP PART OF UNSP BRONCHUS OR LUNG SNOMED Code(s): 72699085 Comment: Follow up with Dr Carrasco will be on hold while in rehab and healing her fracture repair. Status and Disposition: pending PT/OT eval
--- NOTE | 2018-01-17 12:26 | DS ---
DATE OF ADMISSION: 01/13/2018. DATE OF DISCHARGE: 01/17/2018. PROVIDER: Dr. Mateusz Foster* (dictated by CALLUM Ashley). ADMITTING DIAGNOSIS: Right distal humeral shaft oligotrophic nonunion. CONSULTATION: Hospitalist Medicine. HISTORY OF PRESENT ILLNESS: Ms. Varela has stage 4 lung cancer. She fractured her right humerus about six months ago. It has gone on to frankly become a mobile nonunion likely secondary to her being on chemotherapy. It has become so painful that she can no longer continue with the way it was. She has held off on her chemotherapy per instruction of her oncologist. She has a PleurX catheter that drains her pleural effusion. She elected to proceed with a repair of the right distal humeral nonunion with autogenous local bone grafting and compression technique using Synthes plate and screws. HOSPITAL COURSE: The patient was admitted to [facility] on 2017 and underwent a right distal humerus ORIF nonunion with local bone grafting. On postop day one, she was doing well, pain was well-managed with Percocet. She has full sensation intact into all digits. Capillary refill was less than two seconds. The patient was on O2 two liters. She was found to be a max assist on postop day number three and PT and OT were brought in for evaluation, and a RU referral was placed. She was on Heparin for DVT prophylaxis while she was in house. On postop day number three, [facility] was unable to give her a bed. [facility] was offered. She felt that she was having trouble with shortness of breath and felt that her PleurX catheter needed to be drained and actually was obtained and it was found that she did not have a significant amount of an effusion. On postop day number four, the patient was found to be stable for discharge and transfer. We will transfer her to [facility] bed where she will continue her therapy. DISCHARGE MEDICATIONS: 1. Acetaminophen 975. 2. Alprazolam 0.25. 3. Atorvastatin Calcium 40 mg. 4. Bupropion 150 mg. 5. Benadryl 25 mg. 6. Lexapro 10 mg. 7. Duragesic patch 50 mcg. 8. Heparin 5,000 units subcu q.8 hours. 9. Synthroid tab 100 mcg. 10. Synthroid tab 75 mcg. 11. Milk of Magnesia. 12. Morphine Sulfate 2 mg. 13. Zofran 4 mg. 14. Percocet 5/325. DISCHARGE INSTRUCTIONS: Nonweightbearing right upper extremity, wear sling at all times. Do wiggle fingers and keep hand elevated. Splint is to remain clean, dry, and intact. Hold chemotherapy and contact Dr. Vo for further care. Monitor symptoms for a pleural effusion due to her pleural catheter. Continue all home meds has they have been. Change dressing to expose portion of the incision as needed. Please keep splint and dressing dry and sterile. Pain control with Percocet 5/325 mg one to two tabs every four to six hours as needed, max of eight tabs per day. Wean off as soon as pain allows please. Be aware that Percocet contains Tylenol. Limit your Tylenol intake, no more than 4,000 mg per day from all sources. FOLLOW-UP: Follow-up in office with Dr. Foster in 10 to 14 days following your operation. Call with increased pain or redness, drainage, fever. Go to the emergency room with chest pain or shortness of breath. CALLUM ASHLEY [id number]/[facility] #: [id number] ROSALVA
[2018-01-17 13:47] VITALS: BP 115/49
== END 2018-01-17 13:24 | DRG 492 ==
LOC: OR 06:09 → SSU 11:40 → OBSVTOIN 01-14 16:00
PROVIDERS: ADMIT Orthopaedic Surgery Hand Surgery; ATTEND Hospitalist
PROC: 0PSF04Z Reposition Right Humeral Shaft with Internal Fixation Device, Open Approach (ICD-10-PCS; principal; 2018-01-14)
PROC: 0PUF07Z Supplement Right Humeral Shaft with Autologous Tissue Substitute, Open Approach (ICD-10-PCS; 2018-01-14)
DX: S42.341A Displaced spiral fracture of shaft of humerus, right arm, initial encounter for closed fracture (principal); J96.01 Acute respiratory failure with hypoxia; C34.90 Malignant neoplasm of unspecified part of unspecified bronchus or lung; J91.0 Malignant pleural effusion; C79.51 Secondary malignant neoplasm of bone; C77.9 Secondary and unspecified malignant neoplasm of lymph node, unspecified; G89.29 Other chronic pain; F32.9 Major depressive disorder, single episode, unspecified; F41.9 Anxiety disorder, unspecified; E03.9 Hypothyroidism, unspecified; R54 Age-related physical debility; D64.9 Anemia, unspecified; W19.XXXA Unspecified fall, initial encounter; Z88.0 Allergy status to penicillin; Y92.9 Unspecified place or not applicable; Z79.01 Long term (current) use of anticoagulants
CPT/HCPCS: 36415; 71045; 76001; 82565; 84520; 85025; 85610; 85730; A9270-GY; C1713; C1776; G0378; G8978-GP-CK; G8978-GP-CL; G8979-GP-CJ; G8979-GP-CK; G8980-GP-CK; G8987-GO-CJ; G8988-GO-CJ; G8989-GO-CJ; J1642; J1644; J2250; J2405; J2704; J2795; J3010; J3370; J8540

== ENCOUNTER 2018-06-02 11:35 | Inpatient (IN) | payer MEDICARE ==
[~2018-06-02 11:35] MED LIST changes: -Buffered Lidocaine 0.9% SYRIN* 5 ML/SYR SYRINGE INTRADERM ONE; +Buffered Lidocaine 1% SYRIN* 1 ML/SYRINGE INTRADERM ONE; -Dexamethasone TAB* 4 MG PO ONE; -DiMENhydriNATE IV* 50 MG/ML VIAL IV PUSH PRN; +Lactated Ringers 1000 ML Bag* 1,000 ML IV SCH; -Morphine INJ* 2 MG/ML 1 ML SYRINGE (TWO MG - NEW SYRINGE VERSION) IV PRN; -Naloxone* 0.4 MG/ML 1 ML VIAL IV PRN; -Ondansetron INJ* 2 MG/ML VIAL ONE; -PROCHLORPERAZINE INJ 5 MG/ML 2 ML VIAL IV PRN; -Scopolamine 1.5 mg* PATCH TRANSDERM PRN; -fentaNYL* 50 MCG/ML 2 ML VIAL (100 MCG VIAL) IV PRN; -oxyCODONE/Acetamin 5/325 MG* TAB PO PRN
[2018-06-02 12:44] LABS: ABS Basophils 0.1 10^3/ul (0-0.2); ABS Eosinophils 0.5 10^3/ul (0-0.6); ABS Lymphocytes 1.2 10^3/ul (1.0-4.8); ABS Monocytes 0.6 10^3/ul (0-0.8); ABS Nucleated RBC 0 10^3/ul; Eosinophil % 3.3 %; Hematocrit 34 % (35-47); Hemoglobin 10.1 g/dl (12.0-16.0); Mean Corpuscular HGB Conc 30 g/dl (31-36); Mean Corpuscular Hemoglobin 24 pg (27-31); Mean Corpuscular Volume 79 fL (80-97); Mean Platelet Volume 6.8 fL (7.4-10.4); Nucleated Red Blood Cells % 0; Platelet Count 605 10^3/ul (150-450); Red Cell Distribution Width 24 % (10.5-15); White Blood Count 15.5 10^3/ul (3.5-10.8)
[2018-06-02] MEDS ORDERED: Morphine VIAL* 4 MG/ML VIAL (1 ml vial) IV PRN ×2 (14:33→18:16)
[2018-06-02] MEDS ORDERED: oxyCODONE/Acetamin 5/325 MG* TAB PO PRN (14:33)
[2018-06-02] MEDS ORDERED: Naloxone* 0.4 MG/ML 1 ML VIAL IV PRN (14:33)
[2018-06-02] MEDS ORDERED: fentaNYL* 50 MCG/ML 2 ML VIAL (100 MCG VIAL) IV PRN (14:33)
[2018-06-02] MEDS ORDERED: DiMENhydriNATE IV* 50 MG/ML VIAL IV PUSH PRN (14:33)
[2018-06-02] MEDS ORDERED: Bupivacaine 0.5%* 50 ML VIAL ONE (14:50)
[2018-06-02] MEDS ORDERED: Bupivacaine 0.25% SDV PF* 10 ML VIAL INJ ONE (14:51)
[2018-06-02] MEDS ORDERED: fentaNYL* 50 MCG/ML 5 ML VIAL (250 MCG VIAL) ONE (15:03)
[2018-06-02] MEDS ORDERED: Midazolam* 1 MG/ML 5 ML VIAL (5 MG) ONE (15:03)
[2018-06-02] MEDS ORDERED: Propofol* 10 MG/ML 20 ML BTL ONE (15:03)
[2018-06-02] MEDS ORDERED: Lidocaine 2% PF * 5 ML VIAL ONE (15:03)
[2018-06-02] MEDS ORDERED: Clindamycin 900 MG/D5W BAG(*) 900 MG/50 ML BAG IVPB ONE (15:10)
[2018-06-02] MEDS ORDERED: ROPIVACAINE 5 MG/ML 30 ML BTL (0.5%) ONE (15:10)
[2018-06-02] MEDS ORDERED: Dexamethasone IV* 4 MG/ML 1 ML (4 MG) ONE (15:11)
[2018-06-02] MEDS ORDERED: Famotidine IV* 10 MG/ML 2 ML (20 mg) ONE (15:25)
[2018-06-02] MEDS ORDERED: EPHEDrine (Pressors)* 50 MG/ML VIAL ONE (16:12)
[2018-06-02] MEDS ORDERED: Phenylephrine INJ* 10 MG/ML 1 ML VIAL (10 MG) ONE (16:24)
[2018-06-02] MEDS ORDERED: Vancomycin(*) 1,000 MG VIAL ONE (16:54)
[2018-06-02] MEDS ORDERED: diPHENhydraMINE IV* 50 MG/ML 1 ml VIAL (BENADRYL) IV PRN (18:16)
[2018-06-02] MEDS ORDERED: Ondansetron INJ* 2 MG/ML VIAL IV PRN (18:16)
[2018-06-02] MEDS ORDERED: Magnesium Hydroxide LIQ* 30 ML UDC PO PRN (18:16)
[2018-06-02] MEDS ORDERED: traMADol TAB* 50 MG PO PRN (18:16)
[2018-06-02] MEDS ORDERED: Ondansetron ODT TAB* 4 MG PO PRN (18:16)
[2018-06-02] MEDS ORDERED: diPHENhydraMINE PO* 25 MG PO PRN (18:16)
[2018-06-02] MEDS ORDERED: Cyclobenzaprine TAB* 10 MG PO PRN (18:16)
[2018-06-02] MEDS ORDERED: LIDOCAINE PRN (18:24)
[2018-06-02] MEDS ORDERED: diPHENhydraMINE PO* 25 MG PO SCH (19:00)
[2018-06-02] MEDS ORDERED: predniSONE TAB* 50 MG PO SCH (19:00)
[2018-06-02] MEDS ORDERED: Acetaminophen TAB* 325 MG PO SCH (19:00)
[2018-06-02] MEDS ORDERED: Lactated Ringers 1000 ML Bag* 1,000 ML IV SCH (19:00)
[2018-06-02] MEDS ORDERED: Dexamethasone TAB* 4 MG PO SCH (19:00)
[2018-06-02] MEDS ORDERED: fentaNYL PATCH 50 MCG/HR TRANSDERM SCH (22:30)
[2018-06-02] MEDS: Magnesium Hydroxide LIQ* 30 ML UDC PO SCH (23:02)
[2018-06-02] MEDS: Docusate CAP* 100 MG PO SCH (23:03)
[2018-06-02] MEDS: Acetaminophen TAB* 325 MG PO SCH (23:04)
[2018-06-02] MEDS: ALPRAZolam TAB* 0.25 MG PO SCH (23:04)
[2018-06-02] MEDS ORDERED: ALPRAZolam TAB* 0.25 MG PO ONE (23:42)
[2018-06-02 23:56] LABS: Urine Appearance Clear; Urine Bacteria Absent (Absent); Urine Bilirubin Negative (Negative); Urine Blood 2+ (Negative); Urine Color Yellow; Urine Glucose Negative (Negative); Urine Ketones Trace (Negative); Urine Nitrite Negative (Negative); Urine Protein Negative (Negative); Urine Red Blood Cell 3+(>10/hpf) (Absent); Urine Specific Gravity 1.019 (1.010-1.030); Urine Urobilinogen Negative (Negative); Urine White Blood Cell 3+(>20/hpf) (Absent)
[2018-06-03] MEDS: Clindamycin 600 MG IVPREMIX(* 600 MG/50 ML SDV IV SCH ×2 (01:16→08:50)
--- NOTE | 2018-06-03 01:27 | CONS ---
CC: Dr. Brook Garsia; Dr. Mateusz Foster; Dr. Nate Vo * CONSULTATION REPORT: DATE OF ADMISSION: 06/02/18 DATE OF CONSULT: 06/02/18 PRIMARY CARE PROVIDER: Dr. Brook Garsia. ONCOLOGIST: Dr. Nate Vo. PHYSICIAN REQUESTING CONSULTATION: Dr. Mateusz Foster. ATTENDING PHYSICIAN: Dr. Alana Santana (dictated by Angélica Soto NP). REASON FOR CONSULTATION: Co-medical management in a patient with a history of stage IV lung cancer, hyperlipidemia, hypothyroidism, depression, and anxiety. HISTORY OF PRESENT ILLNESS: Ms. Varela is a 67-year-old female with past medical history significant for hyperlipidemia, hypothyroidism, depression, anxiety, stage IV lung cancer, malignant neoplasm of the bones, who is receiving palliative chemotherapy. Ms. Varela initially had a nonunion repair of a right humerus fracture on 01/13/18. She had been doing well. She fell while in [place] and fractured her humerus above the plate. She was placed in a splint, and when the pain got worse and her arm became more swollen, she decided to travel from [place] to [place] to see Dr. Foster for consultation. She received her last chemotherapy approximately 4 weeks ago. She was initially due for another dose of chemotherapy on 05/28/18, but due to plans for surgery this week her chemotherapy was held. She has been receiving palliative chemotherapy, has a PleurX catheter in place that is drained every 5 days for approximately 700 mL of output. She denies fevers, chills, chest pain , shortness of breath, nausea, vomiting, diarrhea. She has baseline neuropathy in her fingertips and toes. When she was seen by Dr. Foster, it was felt that she would not heal her bone without stabilizing it. Dr. Vo felt that she was stable for surgery. Ms. Varela states she has been doing well over the last week and she presented today for an elective ORIF of her right humerus with Dr. Foster. The hospitalists were asked to evaluate the patient and assist with postoperative management. PAST MEDICAL HISTORY: 1. Hyperlipidemia. 2. Hypothyroidism. 3. Depression. 4. Anxiety. 5. Stage IV lung cancer. 6. Malignant neoplasm of the bone. 7. Right humerus fracture. PAST SURGICAL HISTORY: 1. Status post ORIF of the right humerus in December 2017. 2. Status post left wrist surgery, August 2010. HOME MEDICATIONS: Include: 1. Prednisone 50 mg by mouth [address] scan, 1 tablet [address] scan and 1 tablet [address] scan, this is for premedication for IV contrast. 2. EMLA cream, apply to port site prior to access of PowerPort. 3. Fentanyl patch 50 mcg transdermal every 72 hours. 4. Dexamethasone 4 mg tablet, take 2 tablets 2 times a day the day before, 2 tablets at bedtime the day of chemo, and 2 tablets 2 times a day the day after chemo. 5. Vitamin D3 5000 units oral every evening. 6. Acetaminophen 975 mg oral every 8 hours. 7. Benadryl 25 mg by mouth as needed prior to CT scan. 8. Bumex 1 mg oral daily. 9. Atorvastatin 40 mg oral daily. 10. Calcium plus D one chew by mouth every morning. 11. Xanax 0.25 mg 1 to 2 tablets oral 3 times daily as needed for anxiety. 12. Hydrocodone/acetaminophen 5/325 two tablets oral twice daily. 13. Lexapro 10 mg oral every morning. 14. Levothyroxine 100 mcg every morning. 15. Wellbutrin 150 mg oral every morning. 16. Loratadine 10 mg oral every morning. ALLERGIES: DOXYCYCLINE, IODINE CONTRAST, PENICILLIN. FAMILY HISTORY: The patient's mother and father with heart disease and father passed at age 62 from an [place]. The patient's mother with history of lung cancer with metastasis to the brain. SOCIAL HISTORY: She denies tobacco use. Occasionally drinks alcohol. Denies recreational drugs. She is a retired diploma pharmacy technician. Her Jono Varela will be her surrogate decision-maker in the event she is unable to make decisions for herself. REVIEW OF SYSTEMS: I performed a 11-point review of systems, all the pertinent positives and negatives are mentioned in the history of present illness. Remainder of the review of systems are negative. PHYSICAL EXAM: Vital Signs: Temperature 97.2, heart rate 112, respiratory rate 20, O2 sat 96% on 4 L via nasal cannula, blood pressure 102/65. General Appearance: She is alert, pleasant, frail appearing, but appears to be in no acute distress. HEENT: Normocephalic, atraumatic. Pupils are equal. Extraocular movements are intact. Respiratory: There is no accessory muscle use. The lungs are clear bilateral anteriorly. Cardiovascular: Regular rate and rhythm. S1, S2 present. No murmurs, rubs, or gallops heard. Extremities: There is no lower extremity edema. She does have 2+ edema in her left upper extremity. Her right arm is in a sling. Musculoskeletal: There is no clubbing or cyanosis noted. She exhibits good strength in all extremities. Neurological: She is drowsy, but alert and oriented. Cranial nerves II through XII are grossly intact. Psychological: Calm and cooperative. Skin: No rashes or abnormalities seen. DIAGNOSTIC STUDIES/LAB DATA: Preoperative labs from 05/27/18 showed sodium 140 , potassium 4.3, chloride 105, CO2 of 30, BUN 18, creatinine 0.56, glucose 108. CBC from today showed a white blood cell count of 15.5, hemoglobin 10.1, hematocrit 34, platelet count 506. IMPRESSION: Ms. Varela is a 67-year-old female with past medical history significant for hyperlipidemia, hypothyroidism, depression and anxiety, stage IV lung cancer, malignant neoplasm of the bone, who is currently receiving palliative chemotherapy, who presented to the hospital for an elective right humerus ORIF with Dr. Foster today. The hospitalists have been asked to assist with co-medical management of this patient during her hospitalization. ASSESSMENT/PLAN: 1. Right humerus fracture. Management will be per Orthopedic Surgery. She has been placed on clindamycin for 3 days. She will have pain management. She will have occupational and physical therapy. 2. Stage IV lung cancer with malignant neoplasm of the bone. Management per Oncology. She is going to hold her chemotherapy for 4 to 6 weeks and she is going to continue to have her PleurX catheter used to drain her chronic pleural effusion every 5 days by her . 3. Leukocytosis. She is noted to have leukocytosis today and be slightly febrile in preoperative today with a temperature of 100.2. She has also been tachycardiac with intermittent tachypnea. We are going to check urinalysis. She has already had a chest x-ray today, showing density obscuring the bilateral lung bases, more severe on the left than the right, could be due to consolidation and/or pleural effusion. We will recheck a CBC tomorrow. We will also check a CRP in the morning. 4. Hypothyroidism. She will be continued on her home levothyroxine. Her last TSH in our system is 53.62 in February 2018. I will recheck a TSH in the morning. 5. Hyperlipidemia. She will be continued on her home atorvastatin. 6. Anxiety, depression. She will be continued on her home Xanax, Wellbutrin, Lexapro. 7. Chronic pain secondary to bone metastasis. She will be continued on her fentanyl patch with other pain management per Orthopedics. 8. Food, electrolytes, nutrition. She will be on clear liquid diet, advanced to regular diet. 9. Code status. Full code. 10. DVT prophylaxis. She is on subcu heparin per Orthopedic Surgery. 11. Disposition. Inpatient with disposition per Orthopedic Surgery. TIME SPENT: Time for this consultation was approximately 60 minutes; greater than half of that was spent with the patient discussing medications, past medical history, events leading up to her arrival today, performing a physical examination. The case has been reviewed with the attending, Dr. Santana, who agrees with the plan of care. ANGÉLICA SOTO, HAYDER [id number]/[facility] #: [id number] ROSALVA
--- NOTE | 2018-06-03 02:23 | PN ---
Hospitalist Progress Note Date of Service: 06/03/18 I was called for shortness of breath. I went to evaluate Ms. Varela and she was tachypneic with decreased breath sounds on the right. O2 sat was in the 90s. A stat CXR showed a re-accumulated effusion on the right side despite her having drained it last night. Her RN drained the pleurex and got 350 ccs out and she feels better. She also was noted to meet SIRS criteria. I examined her and she was mentating appropriately and had warm extremities. A stat lactate was drawn and elevated at 4. She is already on clindamycin and is receiving IVF -- I am not increasing the rate of IVF and she has evidence of volume overload on exam. Will recheck lactate at 6am.
[2018-06-03 05:02] LABS: Hematocrit 22 % (35-47); Hemoglobin 6.6 g/dl (12.0-16.0); Mean Corpuscular HGB Conc 30 g/dl (31-36); Mean Corpuscular Hemoglobin 24 pg (27-31); Mean Corpuscular Volume 80 fL (80-97); Mean Platelet Volume 7.5 fL (7.4-10.4); Platelet Count 365 10^3/ul (150-450); Red Blood Count 2.78 10^6/ul (4.00-5.40); Red Cell Distribution Width 23 % (10.5-15); White Blood Count 16.8 10^3/ul (3.5-10.8)
[2018-06-03 05:09] LABS: BUN/Creatinine Ratio 29.3 (8-20); C Reactive Protein 5.72 mg/L (<8.01); Calcium 7.8 mg/dL (8.6-10.3); EGFR Non-African American 155.2 (>60); Potassium 4.4 mmol/L (3.5-5.0)
[2018-06-03 05:47] LABS: Lymphocytes % 7 %; Monocytes % 1 %; Neutrophil % 92 %
[2018-06-03 05:51] LABS: TSH (Thyroid Stimulating Horm) 2.81 mcIU/mL (0.34-5.60)
[2018-06-03 05:54] LABS: ABS Basophils 0 10^3/ul (0-0.2); ABS Eosinophils 0 10^3/ul (0-0.6); ABS Lymphocytes 0.6 10^3/ul (1.0-4.8); ABS Monocytes 0.4 10^3/ul (0-0.8); ABS Neutrophils 15.8 10^3/ul (1.5-7.7); ABS Nucleated RBC 0 10^3/ul; Polychromasia 1+
[2018-06-03] MEDS: Levothyroxine TAB* 100 MCG TAB PO SCH (06:18)
[2018-06-03] MEDS: Acetaminophen TAB* 325 MG PO SCH ×3 (06:18→22:40)
[2018-06-03] MEDS: Bumetanide TAB* 1 MG PO SCH (08:43)
[2018-06-03] MEDS: buPROPion SR TAB.SR* 150 MG PO SCH (08:43)
[2018-06-03] MEDS: Citalopram TAB* 20 MG PO SCH (08:43)
[2018-06-03] MEDS: ALPRAZolam TAB* 0.25 MG PO SCH (08:44)
[2018-06-03] MEDS: Magnesium Hydroxide LIQ* 30 ML UDC PO SCH ×2 (08:51→20:55)
[2018-06-03] MEDS: Docusate CAP* 100 MG PO SCH ×2 (08:51→20:54)
[2018-06-03] MEDS: oxyCODONE TAB* 5 MG TAB PO PRN ×2 (08:55→17:29)
--- NOTE | 2018-06-03 09:57 | PN ---
Progress Note - Progress Note Date of Service: 06/03/18 SOAP: Subjective: []Patient was seen and examined at bedside this morning. She is feeling relatively well this morning without shortness of breath, chest pain, dizziness , nausea. Her right humerus is sore but tolerable. Last night she had shortness of breath, CXR showed a re-accumulated effusion on the right side despite her having drained it last night. Her RN drained 350 cc from the the pleurex again , shortness of breath resolved. She met sepsis criteria last night as well with a lactic acid of 4, WBC elevated to 16.8. She remains tachycardic in the low 100 's. Objective: []General: NAD RUE: Right arm with splint in place, no erythema proximal or distal to the splint. Hand is moderately edematous. Able to wiggle all exposed fingers, produce a thumbs up and a-okay sign. Sensation is intact to light touch and capillary refill less than two seconds distally. Calves supple and nontender without erythema or palpable cords. Patient is diffusely edematous evident in BL upper and lower extremities Assessment: []POD 1 sp right humerus ORIF Acute bloodloss anemia with dilutional component Meets sepsis criteria Plan: []NWB RUE Needs post op antibiotics at least 3 days in absence of meeting sepsis criteria. SubQ heparin for DVT prophylaxis while in house. Appreciate comanagement from oncology, Dr Vo. Abx changed to levaquin, will stop IV fluids, order 2 units of PRBC with bumex given in between doses. Recheck H&H tonight Vital Signs Temp 98.1 F 06/03/18 08:33 Pulse 106 06/03/18 08:33 Resp 18 06/03/18 08:55 BP 122/59 06/03/18 08:33 Pulse Ox 98 06/03/18 08:33 Intake & Output 06/02/18 06/03/18 06/03/18 18:59 06:59 18:59 Intake Total 1300 225 Output Total 600 175 Balance 1300 -375 -175 Weight 161 lb Intake: IV Fluids 1300 100 CLINDAMYCIN 900MG 50 LR 1250 100 Oral 125 Output: Urine 250 175 Other 350 Other: Date of Last Bowel 06/03/18 Movement # Bowel Movements 1 Estimated Stool Amount Medium Estimated Blood Loss 200 Comment Other Amount Description PleurX pleural catheter drainage Laboratory Last Values WBC 16.8 10^3/ul (3.5-10.8) H 06/03/18 04:44 RBC 2.78 10^6/ul (4.00-5.40) L 06/03/18 04:44 Hgb 6.6 g/dl (12.0-16.0) L 06/03/18 04:44 Hct 22 % (35-47) L 06/03/18 04:44 MCV 80 fL (80-97) 06/03/18 04:44 MCH 24 pg (27-31) L 06/03/18 04:44 MCHC 30 g/dl (31-36) L 06/03/18 04:44 RDW 23 % (10.5-15) H 06/03/18 04:44 Plt Count 365 10^3/ul (150-450) 06/03/18 04:44 MPV 7.5 fL (7.4-10.4) 06/03/18 04:44 Neut % (Auto) Not Reportable 06/03/18 04:44 Lymph % (Auto) Not Reportable 06/03/18 04:44 Ross % (Auto) Not Reportable 06/03/18 04:44 Eos % (Auto) Not Reportable 06/03/18 04:44 Baso % (Auto) Not Reportable 06/03/18 04:44 Absolute Neuts (auto) 15.8 10^3/ul (1.5-7.7) H 06/03/18 04:44 Absolute Lymphs (auto) 0.6 10^3/ul (1.0-4.8) L 06/03/18 04:44 Absolute Monos (auto) 0.4 10^3/ul (0-0.8) 06/03/18 04:44 Absolute Eos (auto) 0 10^3/ul (0-0.6) 06/03/18 04:44 Absolute Basos (auto) 0 10^3/ul (0-0.2) 06/03/18 04:44 Absolute Nucleated RBC 0 10^3/ul 06/03/18 04:44 Neutrophils % 92 % 06/03/18 04:44 Lymphocytes % 7 % 06/03/18 04:44 Monocytes % 1 % 06/03/18 04:44 Nucleated RBC % Not Reportable 06/03/18 04:44 Normal RBC Morphology Not Reportable 06/03/18 04:44 Polychromasia 1+ 06/03/18 04:44 Anisocytosis 1+ 06/03/18 04:44 Rouleaux 2+ 06/03/18 04:44 Sodium 136 mmol/L (135-145) 06/03/18 04:44 Potassium 4.4 mmol/L (3.5-5.0) 06/03/18 04:44 Chloride 105 mmol/L (101-111) 06/03/18 04:44 Carbon Dioxide 24 mmol/L (22-32) 06/03/18 04:44 Anion Gap 7 mmol/L (2-11) 06/03/18 04:44 BUN 12 mg/dL (6-24) 06/03/18 04:44 Creatinine 0.41 mg/dL (0.51-0.95) L 06/03/18 04:44 Est GFR ( Amer) 187.8 (>60) 06/03/18 04:44 Est GFR (Non-Af Amer) 155.2 (>60) 06/03/18 04:44 BUN/Creatinine Ratio 29.3 (8-20) H 06/03/18 04:44 Glucose 120 mg/dL (70-100) H 06/03/18 04:44 Lactic Acid 2.0 mmol/L (0.5-2.0) 06/03/18 04:44 Calcium 7.8 mg/dL (8.6-10.3) L 06/03/18 04:44 C-Reactive Protein 5.72 mg/L (<8.01) 06/03/18 04:44 TSH 2.81 mcIU/mL (0.34-5.60) 06/03/18 04:44 Urine Color Yellow 06/02/18 23:30 Urine Appearance Clear 06/02/18 23:30 Urine pH 5.0 (5-9) 06/02/18 23:30 Ur Specific [place] 1.019 (1.010-1.030) 06/02/18 23:30 Urine Protein Negative (Negative) 06/02/18 23:30 Urine Ketones Trace (Negative) A 06/02/18 23:30 Urine Blood 2+ (Negative) A 06/02/18 23:30 Urine Nitrate Negative (Negative) 06/02/18 23:30 Urine Bilirubin Negative (Negative) 06/02/18 23:30 Urine Urobilinogen Negative (Negative) 06/02/18 23:30 Ur Leukocyte Esterase 3+ (Negative) A 06/02/18 23:30 Urine WBC (Auto) 3+(>20/hpf) (Absent) A 06/02/18 23:30 Urine RBC (Auto) 3+(>10/hpf) (Absent) A 06/02/18 23:30 Ur Squamous Epith Cells Present (Absent) A 06/02/18 23:30 Urine Bacteria Absent (Absent) 06/02/18 23:30 Hyaline Casts Present (Absent) A 06/02/18 23:30 Urine Glucose Negative (Negative) 06/02/18 23:30
[2018-06-03] MEDS ORDERED: Bumetanide IV* 0.25 MG/ML 4 ML VIAL SLOW PUSH ONE (11:00)
--- NOTE | 2018-06-03 11:44 | OP ---
DATE OF OPERATION: 06/02/18 - ROOM #335 DATE OF : 52 SURGEON: Mateusz Foster MD. FAMILY DAY CARE PROVIDER: CALLUM Be. An quality assurance assistant was needed for the entirety of the procedure to aid in positioning of the arm and retraction. ANESTHESIOLOGIST: Dr. Mccall. ANESTHESIA: Peripheral nerve block, plus general. PRE-OP DIAGNOSIS: Right periprosthetic proximal humeral shaft fracture. POST-OP DIAGNOSIS: Right periprosthetic proximal humeral shaft fracture. OPERATIVE PROCEDURE: 1. Open reduction internal fixation of right periprosthetic proximal humerus shaft fracture. 2. Removal of deep plate and screws, right humeral shaft. INDICATIONS: Wendy is 67-year-old. She has stage IV cancer. She had a very severe humerus nonunion that ultimately I finally ended up treating surgically and was able to get excellent compression. Arm is feeling great. She really looks like she had healed the nonunion and then she fell on floor and fractured above the plates. I told her that we would have to remove one of the plates to get the reduction of the fracture and then I would plan on treating this with a long proximal humerus plate, expanding the pretty much entire length of the bone. She understands the risk of infection. She understands risk of wrist drop. She understands the risk of respiratory failure and even mortality. She understands and she wishes to proceed. I think the chance of her healing this fracture given the fact that she did not heal her last humerus fracture without surgery is extremely low. ESTIMATED BLOOD LOSS: 200 mL. COMPLICATIONS: None. FINDINGS: See above and below. It did look like the nonunion is healed. DESCRIPTION OF PROCEDURE: Wendy was seen in the preoperative holding area. The correct site, side, and procedure were identified. We come back to the operating room and the arm was prepped and draped in the usual fashion and timeout was performed. The arm was exsanguinated with the Esmarch. A timeout was performed. I reopened the patient's prior incision over the anterolateral arm. This was taken up just lateral to the coracoid process. Dissection was carried down and full- thickness flaps were raised off of the deltopectoral fascia. I opened it. There was quite a bit of scar tissue. The cephalic vein was not able to be preserved and so I tied it off. I came distally and utilized the same split , going just lateral to the biceps muscle. The brachialis muscle had atrophied , but I did release what was still there with regards to this. The narrow 4.5 mm plate was encountered. I released the soft tissue all along the plate taking great care distally to try to avoid any injury to the radial nerve. The 2 screws proximally and 2 screws distally were removed and the plate was removed. It did look like the nonunion had healed. There was quite a bit of firm tissue all about the humerus bone. I then came proximally and identified my biceps tendon. I came just lateral to this and I released a little bit of my anterior insertion of the deltoid tendon. I released the soft tissue well along the anterolateral aspect of the humerus. I then brought in my long Synthes proximal humerus plate. I sized to the appropriate-sized plate. I had to take some bend out of this. Please note that prior to doing this, I had reduced the fracture and held in place with a [id number] clamp. I placed one 3.5 mm lag screw from anterior to posterior. This was countersunk lag screw and provided excellent compression and really the reduction was anatomic. I did have to bend the plate a little bit proximal to get it sit down nicely. This was done not where the locking screws are, so that I would get a good locking fixation proximally. I pinned the plate into the place and then I placed a couple of cortical screws distally. I then placed 1 cortical screw proximally followed by multiple locking screws, feeling the remainder of the holes proximally with locking screws. These were all done with locking towers in standard fashion. The additional screws I placed distally were all locking screws. I then got fluoroscopic imaging, it showed the plate was sitting a little bit off the humerus bone distally where some of that nonunion tissue was ; however, I thought that was fine. The plate was sitting very nicely on the bone proximally and spanning the fracture. I had left the 3.5 mm plate on as well. Ultimately, at this point everything was looking good. We had obtained hemostasis throughout with the Bovie and I again irrigated out the wound copiously with liters of fluid. I placed some vancomycin powder all along the plate. I then closed the deep layer with 3-0 PDS, taking care not to sew in the radial nerve. This was closed along the length of the incision. I then placed some more vancomycin powder in the subcutaneous tissue. Subcutaneous tissue was reapproximated with 3-0 PDS. The skin was closed with arcadio. The wound was then dressed with Xeroform, 4x4's, ABDs, and then a long-arm splint with lateral buttress was applied. Proximally, I tagged down the dressing with some foam tape. The patient was then woken up and taken to the recovery room in stable condition. This had been done on the standard [facility]. [id number]/[facility] #: [id number] ROSALVA
[2018-06-03] MEDS ORDERED: Heparin VIAL(*) 5000 UNITS/ML VIAL (FIVE THOUSAND) SUBCUT SCH (12:00)
[2018-06-03] MEDS ORDERED: ALPRAZolam TAB* 0.25 MG ONE (12:12)
[2018-06-03] MEDS ORDERED: ALPRAZolam TAB* 0.25 MG PO ONE (12:15)
[2018-06-03] MEDS: Levofloxacin 750 MG IVPREMIX(* 750 MG/150 ML BAG IVPB SCH (15:59)
[2018-06-03] MEDS: Atorvastatin* 40 MG TAB PO SCH (17:29)
[2018-06-03] MEDS: Cetirizine* 10 MG TAB PO SCH (17:29)
[2018-06-03] MEDS: fentaNYL Patch Check Q Shift 1 NOTE FOLLOW UP SCH (19:24)
[2018-06-03] MEDS: ALPRAZolam TAB* 0.5 MG PO SCH (20:44)
[2018-06-04 00:01] LABS: Hematocrit 30 % (35-47); Hemoglobin 9.6 g/dl (12.0-16.0)
[2018-06-04] MEDS: oxyCODONE TAB* 5 MG TAB PO PRN ×5 (00:23→21:29)
[2018-06-04] MEDS: Acetaminophen TAB* 325 MG PO SCH ×3 (06:02→21:35)
[2018-06-04] MEDS: Levothyroxine TAB* 100 MCG TAB PO SCH (06:03)
[2018-06-04 06:24] LABS: Hematocrit 31 % (35-47); Mean Corpuscular HGB Conc 33 g/dl (31-36); Mean Corpuscular Hemoglobin 26 pg (27-31); Mean Corpuscular Volume 79 fL (80-97); Mean Platelet Volume 6.4 fL (7.4-10.4); Platelet Count 439 10^3/ul (150-450); Red Blood Count 3.88 10^6/ul (4.00-5.40); Red Cell Distribution Width 22 % (10.5-15); White Blood Count 11.8 10^3/ul (3.5-10.8)
[2018-06-04 06:40] LABS: BUN/Creatinine Ratio 21.2 (8-20); Calcium 8.1 mg/dL (8.6-10.3); Potassium 3.3 mmol/L (3.5-5.0)
[2018-06-04] MEDS: fentaNYL Patch Check Q Shift 1 NOTE FOLLOW UP SCH ×2 (07:00→18:29)
[2018-06-04 07:16] LABS: ABS Basophils 0.1 10^3/ul (0-0.2); ABS Eosinophils 0.1 10^3/ul (0-0.6); ABS Lymphocytes 0.8 10^3/ul (1.0-4.8); ABS Monocytes 0.7 10^3/ul (0-0.8); ABS Neutrophils 10.1 10^3/ul (1.5-7.7); ABS Nucleated RBC 0 10^3/ul; Eosinophil % 0.9 %; Nucleated Red Blood Cells % 0
[2018-06-04] MEDS: Docusate CAP* 100 MG PO SCH ×2 (08:31→21:30)
[2018-06-04] MEDS: Magnesium Hydroxide LIQ* 30 ML UDC PO SCH ×2 (08:31→21:30)
[2018-06-04] MEDS: buPROPion SR TAB.SR* 150 MG PO SCH (09:27)
[2018-06-04] MEDS: Citalopram TAB* 20 MG PO SCH (09:27)
[2018-06-04] MEDS: ALPRAZolam TAB* 0.5 MG PO SCH ×2 (09:27→21:29)
[2018-06-04] MEDS: Bumetanide TAB* 1 MG PO SCH (09:27)
[2018-06-04] MEDS: Levofloxacin 750 MG IVPREMIX(* 750 MG/150 ML BAG IVPB SCH (11:30)
--- NOTE | 2018-06-04 13:16 | PN ---
Progress Note - Progress Note Date of Service: 06/04/18 SOAP: Subjective: [] Patient was seen and examined at bedside. She is feeling well without CP, SOB , dizziness or nausea. H&H is much improved today. She was seen by Dr Vo this morning who confirms she is stable for discharge Objective: [] General: NAD RUE: Right arm with splint in place, no erythema proximal or distal to the splint. Hand is moderately edematous though improved from yesterday. Able to wiggle all exposed fingers, produce a thumbs up and a-okay sign. Sensation is intact to light touch and capillary refill less than two seconds distally. Calves supple and nontender without erythema or palpable cords. Diffuse edema is much improved today Assessment: []POD 2 sp right humerus ORIF Plan: []NWB RUE Needs post op antibiotics at least 3 days in absence of meeting sepsis criteria , today is day 2/3 SubQ heparin for DVT prophylaxis while in house. Appreciate comanagement from oncology, Dr Vo. Remain on levaquin until tomorrow. As long as urine culture is negative no need for abx thereafter Vital Signs Temp 98.3 F 06/04/18 11:52 Pulse 94 06/04/18 11:52 Resp 18 06/04/18 12:02 BP 107/49 06/04/18 11:52 Pulse Ox 98 06/04/18 11:52 Intake & Output 06/03/18 06/04/18 06/04/18 18:59 06:59 18:59 Intake Total 411 1042 Output Total 525 585 0 Balance -114 457 0 Intake: Oral 120 700 Packed Cells 291 342 Output: Urine 525 585 0 Other: Estimated Void Large Medium Date of Last Bowel 06/03/18 Movement # Bowel Movements 1 Estimated Stool Amount Medium # Voids 1 1 Laboratory Last Values WBC 11.8 10^3/ul (3.5-10.8) H 06/04/18 06:06 RBC 3.88 10^6/ul (4.00-5.40) L 06/04/18 06:06 Hgb 10.0 g/dl (12.0-16.0) L 06/04/18 06:06 Hct 31 % (35-47) L 06/04/18 06:06 MCV 79 fL (80-97) L 06/04/18 06:06 MCH 26 pg (27-31) L 06/04/18 06:06 MCHC 33 g/dl (31-36) 06/04/18 06:06 RDW 22 % (10.5-15) H 06/04/18 06:06 Plt Count 439 10^3/ul (150-450) 06/04/18 06:06 MPV 6.4 fL (7.4-10.4) L 06/04/18 06:06 Neut % (Auto) 85.6 % 06/04/18 06:06 Lymph % (Auto) 7.0 % 06/04/18 06:06 [place] % (Auto) 5.9 % 06/04/18 06:06 Eos % (Auto) 0.9 % 06/04/18 06:06 Baso % (Auto) 0.6 % 06/04/18 06:06 Absolute Neuts (auto) 10.1 10^3/ul (1.5-7.7) H 06/04/18 06:06 Absolute Lymphs (auto) 0.8 10^3/ul (1.0-4.8) L 06/04/18 06:06 Absolute Monos (auto) 0.7 10^3/ul (0-0.8) 06/04/18 06:06 Absolute Eos (auto) 0.1 10^3/ul (0-0.6) 06/04/18 06:06 Absolute Basos (auto) 0.1 10^3/ul (0-0.2) 06/04/18 06:06 Absolute Nucleated RBC 0 10^3/ul 06/04/18 06:06 Neutrophils % 92 % 06/03/18 04:44 Lymphocytes % 7 % 06/03/18 04:44 Monocytes % 1 % 06/03/18 04:44 Nucleated RBC % 0 06/04/18 06:06 Normal RBC Morphology Not Reportable 06/03/18 04:44 Polychromasia 1+ 06/03/18 04:44 Anisocytosis 1+ 06/03/18 04:44 Rouleaux 2+ 06/03/18 04:44 Hem Pathologist Commnt 06/03/18 04:44 Sodium 140 mmol/L (135-145) 06/04/18 06:06 Potassium 3.3 mmol/L (3.5-5.0) L 06/04/18 06:06 Chloride 105 mmol/L (101-111) 06/04/18 06:06 Carbon Dioxide 32 mmol/L (22-32) 06/04/18 06:06 Anion Gap 3 mmol/L (2-11) 06/04/18 06:06 BUN 11 mg/dL (6-24) 06/04/18 06:06 Creatinine 0.52 mg/dL (0.51-0.95) 06/04/18 06:06 Est GFR ( Amer) 142.8 (>60) 06/04/18 06:06 Est GFR (Non-Af Amer) 118.0 (>60) 06/04/18 06:06 BUN/Creatinine Ratio 21.2 (8-20) H 06/04/18 06:06 Glucose 92 mg/dL (70-100) 06/04/18 06:06 Lactic Acid 2.0 mmol/L (0.5-2.0) 06/03/18 04:44 Calcium 8.1 mg/dL (8.6-10.3) L 06/04/18 06:06 C-Reactive Protein 5.72 mg/L (<8.01) 06/03/18 04:44 TSH 2.81 mcIU/mL (0.34-5.60) 06/03/18 04:44 Urine Color Yellow 06/02/18 23:30 Urine Appearance Clear 06/02/18 23:30 Urine pH 5.0 (5-9) 06/02/18 23:30 Ur Specific [place] 1.019 (1.010-1.030) 06/02/18 23:30 Urine Protein Negative (Negative) 06/02/18 23:30 Urine Ketones Trace (Negative) A 06/02/18 23:30 Urine Blood 2+ (Negative) A 06/02/18 23:30 Urine Nitrate Negative (Negative) 06/02/18 23:30 Urine Bilirubin Negative (Negative) 06/02/18 23:30 Urine Urobilinogen Negative (Negative) 06/02/18 23:30 Ur Leukocyte Esterase 3+ (Negative) A 06/02/18 23:30 Urine WBC (Auto) 3+(>20/hpf) (Absent) A 06/02/18 23:30 Urine RBC (Auto) 3+(>10/hpf) (Absent) A 06/02/18 23:30 Ur Squamous Epith Cells Present (Absent) A 06/02/18 23:30 Urine Bacteria Absent (Absent) 06/02/18 23:30 Hyaline Casts Present (Absent) A 06/02/18 23:30 Urine Glucose Negative (Negative) 06/02/18 23:30 Blood Type O Positive 06/03/18 04:44 Antibody Screen Negative 06/03/18 04:44 Crossmatch See Detail 06/03/18 04:44
[2018-06-04] MEDS: Heparin VIAL(*) 5000 UNITS/ML VIAL (FIVE THOUSAND) SUBCUT SCH ×2 (13:46→21:31)
[2018-06-04 15:26] LABS: ABS Basophils 0.1 10^3/ul (0-0.2); ABS Eosinophils 0.1 10^3/ul (0-0.6); ABS Monocytes 0.9 10^3/ul (0-0.8); ABS Nucleated RBC 0 10^3/ul; Eosinophil % 0.8 %; Hematocrit 31 % (35-47); Hemoglobin 9.7 g/dl (12.0-16.0); Lymphocyte % 5.6 %; Mean Corpuscular HGB Conc 31 g/dl (31-36); Mean Corpuscular Hemoglobin 25 pg (27-31); Mean Corpuscular Volume 80 fL (80-97); Mean Platelet Volume 6.8 fL (7.4-10.4); Nucleated Red Blood Cells % 0.1; Platelet Count 411 10^3/ul (150-450); Red Blood Count 3.87 10^6/ul (4.00-5.40); Red Cell Distribution Width 22 % (10.5-15); White Blood Count 17.1 10^3/ul (3.5-10.8)
[2018-06-04 15:50] LABS: INR 0.94 (0.77-1.02)
[2018-06-04 15:56] LABS: EGFR Non-African American 120.7 (>60)
[2018-06-04] MEDS: Atorvastatin* 40 MG TAB PO SCH (17:27)
[2018-06-04] MEDS: Cetirizine* 10 MG TAB PO SCH (17:27)
[2018-06-04] MEDS: Neomycin/Polym/Bacit TOP OINT* 15 GM TOPICAL SCH (22:04)
[2018-06-05] MEDS: Heparin VIAL(*) 5000 UNITS/ML VIAL (FIVE THOUSAND) SUBCUT SCH (05:50)
[2018-06-05] MEDS: Levothyroxine TAB* 100 MCG TAB PO SCH (05:50)
[2018-06-05] MEDS: Acetaminophen TAB* 325 MG PO SCH (05:50)
[2018-06-05 05:56] LABS: ABS Basophils 0.1 10^3/ul (0-0.2); ABS Eosinophils 0.2 10^3/ul (0-0.6); ABS Lymphocytes 1.1 10^3/ul (1.0-4.8); ABS Monocytes 0.7 10^3/ul (0-0.8); ABS Neutrophils 8.7 10^3/ul (1.5-7.7); ABS Nucleated RBC 0 10^3/ul; Eosinophil % 2.1 %; Hematocrit 29 % (35-47); Hemoglobin 9.3 g/dl (12.0-16.0); Lymphocyte % 10.4 %; Mean Corpuscular HGB Conc 32 g/dl (31-36); Mean Corpuscular Hemoglobin 26 pg (27-31); Mean Corpuscular Volume 80 fL (80-97); Mean Platelet Volume 6.7 fL (7.4-10.4); Nucleated Red Blood Cells % 0; Platelet Count 418 10^3/ul (150-450); Red Blood Count 3.65 10^6/ul (4.00-5.40); Red Cell Distribution Width 22 % (10.5-15); White Blood Count 10.8 10^3/ul (3.5-10.8)
[2018-06-05] MEDS: fentaNYL Patch Check Q Shift 1 NOTE FOLLOW UP SCH (06:47)
--- NOTE | 2018-06-05 09:50 | PN ---
Progress Note - Progress Note Date of Service: 06/05/18 SOAP: Subjective: []Patient was seen and examined at bedside. She feels well without CP, SOB, dizziness, nausea. Right arm pain is well controlled. Diffuse edema is resolved. Objective: []General: NAD RUE: Right arm with splint in place, no erythema proximal or distal to the splint. Hand is mildly edematous improved from yesterday. Able to wiggle all exposed fingers, produce a thumbs up and a-okay sign. Sensation is intact to light touch and capillary refill less than two seconds distally. Calves supple and nontender without erythema or palpable cords. Assessment: []POD 3 sp right humerus ORIF Plan: []NWB RUE Today is day 3/3 post op antibiotics. She should receive her levaquin dose prior to leaving. Her urine culture is positive for staph epidermis which is very likely a contaminant and no need for further antibiotics. She does not have urinary symptoms, I did discuss this scenario with ID SubQ heparin for DVT prophylaxis while in house. Appreciate comanagement from oncology, Dr Vo. Remain on levaquin until discharge Vital Signs Temp 98.0 F 06/05/18 04:10 Pulse 87 06/05/18 04:10 Resp 18 06/05/18 06:00 BP 95/49 06/05/18 04:10 Pulse Ox 98 06/05/18 06:00 Intake & Output 06/04/18 06/05/18 06/05/18 18:59 06:59 18:59 Output Total 800 650 Balance -800 -650 Output: Urine 800 650 Other: # Bowel Movements 0 Laboratory Last Values WBC 10.8 10^3/ul (3.5-10.8) 06/05/18 05:45 RBC 3.65 10^6/ul (4.00-5.40) L 06/05/18 05:45 Hgb 9.3 g/dl (12.0-16.0) L 06/05/18 05:45 Hct 29 % (35-47) L 06/05/18 05:45 MCV 80 fL (80-97) 06/05/18 05:45 MCH 26 pg (27-31) L 06/05/18 05:45 MCHC 32 g/dl (31-36) 06/05/18 05:45 RDW 22 % (10.5-15) H 06/05/18 05:45 Plt Count 418 10^3/ul (150-450) 06/05/18 05:45 MPV 6.7 fL (7.4-10.4) L 06/05/18 05:45 Neut % (Auto) 80.7 % 06/05/18 05:45 Lymph % (Auto) 10.4 % 06/05/18 05:45 [place] % (Auto) 6.3 % 06/05/18 05:45 Eos % (Auto) 2.1 % 06/05/18 05:45 Baso % (Auto) 0.5 % 06/05/18 05:45 Absolute Neuts (auto) 8.7 10^3/ul (1.5-7.7) H 06/05/18 05:45 Absolute Lymphs (auto) 1.1 10^3/ul (1.0-4.8) 06/05/18 05:45 Absolute Monos (auto) 0.7 10^3/ul (0-0.8) 06/05/18 05:45 Absolute Eos (auto) 0.2 10^3/ul (0-0.6) 06/05/18 05:45 Absolute Basos (auto) 0.1 10^3/ul (0-0.2) 06/05/18 05:45 Absolute Nucleated RBC 0 10^3/ul 06/05/18 05:45 Neutrophils % 92 % 06/03/18 04:44 Lymphocytes % 7 % 06/03/18 04:44 Monocytes % 1 % 06/03/18 04:44 Nucleated RBC % 0 06/05/18 05:45 Normal RBC Morphology Not Reportable 06/03/18 04:44 Polychromasia 1+ 06/03/18 04:44 Anisocytosis 1+ 06/03/18 04:44 Rouleaux 2+ 06/03/18 04:44 Hem Pathologist Commnt 06/03/18 04:44 INR (Anticoag Therapy) 0.94 (0.77-1.02) 06/04/18 15:10 APTT 29.0 seconds (26.0-36.3) 06/04/18 15:10 Sodium 140 mmol/L (135-145) 06/04/18 06:06 Potassium 3.4 mmol/L (3.5-5.0) L 06/05/18 05:45 Chloride 105 mmol/L (101-111) 06/04/18 06:06 Carbon Dioxide 32 mmol/L (22-32) 06/04/18 06:06 Anion Gap 3 mmol/L (2-11) 06/04/18 06:06 BUN 9 mg/dL (6-24) 06/04/18 15:10 Creatinine 0.51 mg/dL (0.51-0.95) 06/04/18 15:10 Est GFR ( Amer) 146.0 (>60) 06/04/18 15:10 Est GFR (Non-Af Amer) 120.7 (>60) 06/04/18 15:10 BUN/Creatinine Ratio 21.2 (8-20) H 06/04/18 06:06 Glucose 92 mg/dL (70-100) 06/04/18 06:06 Lactic Acid 2.0 mmol/L (0.5-2.0) 06/03/18 04:44 Calcium 8.1 mg/dL (8.6-10.3) L 06/04/18 06:06 C-Reactive Protein 5.72 mg/L (<8.01) 06/03/18 04:44 TSH 2.81 mcIU/mL (0.34-5.60) 06/03/18 04:44 Urine Color Yellow 06/02/18 23:30 Urine Appearance Clear 06/02/18 23:30 Urine pH 5.0 (5-9) 06/02/18 23:30 Ur Specific [place] 1.019 (1.010-1.030) 06/02/18 23:30 Urine Protein Negative (Negative) 06/02/18 23:30 Urine Ketones Trace (Negative) A 06/02/18 23:30 Urine Blood 2+ (Negative) A 06/02/18 23:30 Urine Nitrate Negative (Negative) 06/02/18 23:30 Urine Bilirubin Negative (Negative) 06/02/18 23:30 Urine Urobilinogen Negative (Negative) 06/02/18 23:30 Ur Leukocyte Esterase 3+ (Negative) A 06/02/18 23:30 Urine WBC (Auto) 3+(>20/hpf) (Absent) A 06/02/18 23:30 Urine RBC (Auto) 3+(>10/hpf) (Absent) A 06/02/18 23:30 Ur Squamous Epith Cells Present (Absent) A 06/02/18 23:30 Urine Bacteria Absent (Absent) 06/02/18 23:30 Hyaline Casts Present (Absent) A 06/02/18 23:30 Urine Glucose Negative (Negative) 06/02/18 23:30 Blood Type O Positive 06/03/18 04:44 Antibody Screen Negative 06/03/18 04:44 Crossmatch See Detail 06/03/18 04:44
[2018-06-05] MEDS: ALPRAZolam TAB* 0.5 MG PO SCH (10:06)
[2018-06-05] MEDS: Magnesium Hydroxide LIQ* 30 ML UDC PO SCH (10:06)
[2018-06-05] MEDS: Docusate CAP* 100 MG PO SCH (10:06)
[2018-06-05] MEDS: Bumetanide TAB* 1 MG PO SCH (10:06)
[2018-06-05] MEDS: buPROPion SR TAB.SR* 150 MG PO SCH (10:06)
[2018-06-05] MEDS: Citalopram TAB* 20 MG PO SCH (10:06)
[2018-06-05] MEDS: Neomycin/Polym/Bacit TOP OINT* 15 GM TOPICAL SCH (10:08)
[2018-06-05] MEDS: Levofloxacin 750 MG IVPREMIX(* 750 MG/150 ML BAG IVPB SCH (10:52)
--- NOTE | 2018-06-05 11:05 | DS ---
AMENDED REPORT NOW INCLUDES DESIGNATED COSIGNER DATE OF ADMISSION: 06/02/2018. DATE OF DISCHARGE: 06/05/2018. ATTENDING SURGEON: Dr. Mateusz Foster * (dictated by CALLUM Mcneill). DATE OF OPERATION: 06/02/2018. PREOPERATIVE DIAGNOSIS: Right periprosthetic proximal humeral shaft fracture. OPERATIVE PROCEDURE: ORIF right periprosthetic proximal humerus shaft fracture and removal of deep plate and screws right humeral shaft. HISTORY: Wendy is a 67-year-old female. She has stage 4 cancer. She has a very severe humerus nonunion that ultimately was treated surgically and was able to get excellent compression. Her arm was feeling great. The arm has healed the nonunion well, but she fell and fractured above the plates. The patient agreed to undergo removal of one of the plates and then placement of a long proximal humerus plate to extend essentially the entire length of the humeral bone. HOSPITAL COURSE: The patient was admitted to [facility] on 2018. She underwent an ORIF of the right periprosthetic proximal humeral shaft fracture and removal of deep plate and screws right humeral shaft without complication. She recovered briefly in the PACU and was transferred to the Short Stay Surgical Unit in stable condition. Postop day zero, Hospitalist Service was called to the bedside for shortness of breath. The patient was tachypneic with decreased breath sounds on the right side. Her O2 sat was in the 90s. Stat chest x-ray showed reaccumulation of effusion on the right side despite having drained it the previous night. RN drained 350 cc out of the PleurX catheter. The patient felt much better. She also met SIRS criteria. Lactate was drawn and elevated to 4. The following day she was seen by Dr. Vo as well sa myself, Orthopedics. She was well- appearing, in no acute distress. Right arm splint was in place. No erythema proximal or distal to the splint. Hand was moderately edematous. Able to wiggle all exposed fingers, produce a thumbs up sign and an okay sign. Sensation intact to light touch and capillary refill less than two seconds distally. Per Dr. Vo, Oncology, her antibiotics were changed to Levaquin. IV fluids were stopped and two units of packed red blood cells were order with Bumex in between doses with an H and H rechecked later that night. Postop day two, she was well-appearing, in no acute distress. Exam was unchanged. Postop day three, again exam is unchanged. She is well-appearing and in no acute distress. LABORATORY DATA: White blood cell count 10.8, hemoglobin 9.3, hematocrit 29, platelet count 418, potassium is mildly low at 3.4 slightly improved from yesterday at 3.3. Urine culture shows staph epidermidis. This is likely a contaminate, I did discuss this with ID and determined no need to treat for UTI. Vital Signs: Temperature 98.0, pulse rate 87, respiratory rate 16, oxygen saturation 95, blood pressure 95/49. The patient is deemed to be medically and orthopedically stable for discharge to [facility]. DISCHARGE MEDICATIONS: 1. Levothyroxine 100 mcg p.o. q.a.m. 2. Xanax 0.25 mg p.o. b.i.d. 3. Wellbutrin SR 150 mg p.o. q.a.m. 4. Fentanyl 50 mg patch q.72 hours. 5. Atorvastatin 40 mg p.o. 1700. 6. Claritin 10 mg p.o. q.a.m. 7. Benadryl Allergy 25 mg p.o. prn. 8. Prednisone 50 mg per instruction. 9. Lexapro 10 mg p.o. q.a.m. 10. Dexamethasone 4 mg p.o. per instruction. 11. Vitamin D3 5,000 unit p.o. q.p.m. 12. Lidocaine cream one application topically prn. 13. Acetaminophen 975 mg p.o. q.8 hours prn. 14. [place] 5/325 two tabs p.o. b.i.d. prn. 15. Bumex 1 mg one tab p.o. q.a.m. 16. Calcium with D one chew p.o. q.a.m. 17. Docusate 100 mg p.o. b.i.d. 18. Neosporin ointment apply to vulvar lesions as needed b.i.d. 19. Tramadol 50 mg p.o. q.6 hours prn. 20. Macrobid 100 mg p.o. b.i.d. for 5 days. DISCHARGE PLAN: The patient will be discharged to [facility]. Keep the splint clean, dry, and intact. Nonweightbearing of operative extremity. Do wiggle all the fingers, ice as able. If you have chest pain or shortness of breath, go to the emergency room. If you have increased pain, redness, numbness , fever or chills, call the Orthopedic office. Follow-up with Dr. Foster ten days postop. Call for an appointment, . Continue PleurX catheter care as per home routine and as needed. Dr. Vo, Oncology, follows this patient. Please contact him with any needs related to the oncology concerns. If there is any concern for UTI whatsoever recommend treatment for UTI. CALLUM PATEL [id number]/[facility] #: [id number] MTDD
[2018-06-05 11:51] VITALS: BP 97/58
[2018-06-05] MEDS: oxyCODONE TAB* 5 MG TAB PO PRN (14:06)
== END 2018-06-05 14:18 | DRG 493 ==
LOC: OR 11:35 → SSU 21:40
PROVIDERS: ADMIT Orthopaedic Surgery Hand Surgery; ATTEND Orthopaedic Surgery Hand Surgery
PROC: 30233N1 Transfusion of Nonautologous Red Blood Cells into Peripheral Vein, Percutaneous Approach (ICD-10-PCS; principal; 2018-06-03)
PROC: 0PSC04Z Reposition Right Humeral Head with Internal Fixation Device, Open Approach (ICD-10-PCS; 2018-06-03)
PROC: 0RPJ04Z Removal of Internal Fixation Device from Right Shoulder Joint, Open Approach (ICD-10-PCS; 2018-06-03)
DX: S42.341A Displaced spiral fracture of shaft of humerus, right arm, initial encounter for closed fracture (principal); C34.32 Malignant neoplasm of lower lobe, left bronchus or lung; C79.51 Secondary malignant neoplasm of bone; J90 Pleural effusion, not elsewhere classified; M97.31XA Periprosthetic fracture around internal prosthetic right shoulder joint, initial encounter; E03.9 Hypothyroidism, unspecified; D64.9 Anemia, unspecified; W18.30XA Fall on same level, unspecified, initial encounter; E78.5 Hyperlipidemia, unspecified; F41.9 Anxiety disorder, unspecified; G62.9 Polyneuropathy, unspecified; F32.9 Major depressive disorder, single episode, unspecified; G89.29 Other chronic pain; Y92.9 Unspecified place or not applicable; Z88.0 Allergy status to penicillin; Z88.1 Allergy status to other antibiotic agents; R06.02 Shortness of breath; D72.829 Elevated white blood cell count, unspecified; D62 Acute posthemorrhagic anemia; Z82.49 Family history of ischemic heart disease and other diseases of the circulatory system; Z80.1 Family history of malignant neoplasm of trachea, bronchus and lung; Z72.89 Other problems related to lifestyle
CPT/HCPCS: 36415; 71045; 71046; 76000; 80048; 81003; 81015; 82565; 83605; 84132; 84443; 84520; 85014; 85018; 85025; 85060; 85610; 85730; 86140; 86850; 86900; 86901; 86922; 87077; 87086; 87186; 88300; A9270-GY; C1713; C1776; G8978-GP-CL; G8979-GP-CJ; G8987-GO-CL; G8988-GO-CJ; J1100; J1642; J1644; J2250; J2704; J2795; J3010; J3370; J3490; P9040